=== PATIENT | male | born 1950 | race Caucasian/White ===

== ENCOUNTER 2016-06-12 14:41 | Emergency (ER) | payer MEDICARE, OTHER ==
--- NOTE | ~2016-06-12 | ER ---
PATIENT'S NAME: JOHNNY SHRESTHA [facility] AGE: 66 Y [address] ROOM: [place] [address] LOCATION: ED ADMIT DATE: 06/12/2016 ER/Outpatient Report DISCHARGE DATE: 06/12/2016 FAMILY PHYSICIAN: Jan Heath MD ATTENDING PHYSICIAN: Taz Brown CHIEF COMPLAINT: Bleeding AV fistula. HISTORY OF PRESENT ILLNESS: The patient states that he was changing a Band-Aid on a left forearm dialysis fistula secondary to prior bleeding and scabbing when the scab fell off, then he started having bleeding. He has been able to control it at home with direct pressure. He was given significant amounts of bleeding per EMS. They were contacted. They placed a tourniquet above the fistula and a large gauze dressing with pressure and brought him in for further evaluation. He has a history of AFib and is always on Coumadin; however, he is scheduled for a fistulogram on Monday after dialysis and is supposed to be evaluated then and thus he is on Lovenox currently. He denies any other issues, but he was little pale when he was initially evaluated per EMS. They state there was a lot of visible blood, but they could not quantify the amount. He denies any other issues. He was little low on oxygen so they placed him on some oxygen and brought him in. PAST MEDICAL HISTORY: Documented on the record and reviewed by me. SOCIAL HISTORY: Documented on the record and reviewed by me. MEDICATIONS: Documented on the record and reviewed by me. ALLERGIES: DOCUMENTED ON THE RECORD AND REVIEWED BY ME. REVIEW OF SYSTEMS: All systems were reviewed and negative except as noted in the HPI. PHYSICAL EXAMINATION: VITAL SIGNS: Blood pressure 118/68, pulse is 89, respiratory rate is 14, temperature is 97.8, and SpO2 is 91% on room air. GENERAL: Age-appropriate male with slight anxious appearance, otherwise, in no obvious pain or distress, resting on the exam table with significant blood around the hands. PATIENT'S NAME: JOHNNY SHRESTHA [facility] AGE: 66 Y [address] ROOM: [place] [address] LOCATION: ED ADMIT DATE: 06/12/2016 ER/Outpatient Report DISCHARGE DATE: 06/12/2016 FAMILY PHYSICIAN: Jan Heath MD ATTENDING PHYSICIAN: Taz Brown NEURO: The patient is awake and alert. GCS is 15. No focal deficits or asymmetry appreciated on exam. HEENT: Normocephalic and atraumatic. The eyes are PERRL. The oropharynx is clear. NECK: Supple. Trachea is midline. CHEST: Irregularly irregular with controlled ventricular rate in the 80s. No obvious murmurs. LUNGS: Clear to auscultation bilaterally with no rhonchi, wheezes, or rales. ABDOMEN: Soft, nontender, and nondistended. No rebound or guarding. BACK: Nontender to palpation throughout. No CVA tenderness. EXTREMITIES: Unremarkable except for the left forearm. There is a large bandage. When they removed, there was an arterial bleed from the center of the fistula. Direct pressure was applied to this area. We were unable to control bleeding with direct pressure after 15 minutes. It was ultimately controlled later. Thrill was palpated distal to the fistula and it was pulsatile proximal to the area of bleeding after intervention. The hand is otherwise neurovascularly intact. SKIN: Warm and dry as above and his color is stabilized and appropriate. LABORATORY DATA AND X-RAYS: No imaging was obtained. WBC is 8.6, hemoglobin is 10.0, platelets are 230. INR is 1.3. Sodium 138, potassium 4.3, chloride 99, CO2 is 31, BUN is 34, creatinine 5.1, GFR is 11. LFTs are grossly unremarkable. Blood type is O positive. No antibodies appreciated. IMPRESSION: Bleeding fistula, resolved. EMERGENCY DEPARTMENT COURSE: The patient was evaluated as above. The fistula continued to bleed after initial evaluation. Direct pressure was not sufficient to control bleeding after 15-20 minutes. Surgicel was placed over the wound and pressure was held for another 10 minutes with cessation of bleeding. A small gauze pad was placed over the Surgicel and a Tegaderm was placed over the top of that. The patient was evaluated for approximately an hour in the ER with no further evidence of bleeding. He stabilized and was not requiring oxygen in the ER. His blood counts were within appropriate range and he did receive approximately 750 mL of NS per EMS prior to arrival. He was otherwise hemodynamically stable. I have recommended very close followup on Monday as previously scheduled with Dr. Harrington. Return precautions discussed, the patient amenable to discharge at this time. Recommend direct pressure with no manipulation of the current bandage. He should continue to take his anticoagulation as he would be a high clot risk, where he had to stop that prior to his planned last dose tomorrow morning. Return immediately if any further bleeding regardless of ability to control. PATIENT'S NAME: JOHNNY SHRESTHA [facility] AGE: 66 Y [address] ROOM: [place] [address] LOCATION: [facility] ADMIT DATE: 06/12/2016 ER/Outpatient Report DISCHARGE DATE: 06/12/2016 FAMILY PHYSICIAN: Jan Heath MD ATTENDING PHYSICIAN: Taz Brown TAZ BROWN MD JH/modl /[id number] d: 06/12/16 2338 t: 06/13/16 1054, OUTPATIENT REPORT
[~2016-06-12 14:41] MED LIST: AMOXICILLIN500 MG PO; ANORO ELLIPTA1 EACH INH; ASCORBIC ACID500 MG PO; ATARAX25 MG PO; CEFTIN250 MG PO; CENTRUM SILVER1 EACH; COUMADIN 4MG **4 MG PO; DIFICID200 MG PO; DIFLUCAN200 MG PO; FEOSOL325 MG PO; FOLIC ACID1 MG PO; FOSRENOL1000 MG PO; LOVENOX80 MG/0.8 SUB-Q; MIRALAX17 GM PO; MULTAQ400 MG PO; NEPHRON FA (NEP1 TAB PO; NEURONTIN300 MG PO; NIFEREX-150) (150 MG PO; RENVELA800 MG PO; RYTHMOL SR325 MG PO; RYTHMOL225 M1 PO; SENSIPAR 30 MG30 MG PO; TAMIFLU30 MG PO; TRICOR145 MG PO; TYLENOL325 MG PO; VITAMIN B-121000 MCG PO; VITAMIN E400 UNI2 PO
[2016-06-12 15:34] LABS: BASOPHIL # 0.1 K/uL (0.0-0.2); BASOPHIL % 0.9 %; EOSINOPHIL # 0.5 K/uL (0.0-0.5); HEMATOCRIT 31.6 % (37.0-53.0); IMMATURE GRANULOCYTE % 0.5 %; MCH 34.7 pg (27.0-34.0); MCHC 31.6 gm/dL (32.0-36.5); MCV 109.7 fl (83.0-98.0); MONOCYTE # 0.8 K/uL (0.0-1.0); MPV 9.8 fl (9.4-12.4); NEUTROPHIL # (ANC) 6.2 K/uL (1.4-9.0); NEUTROPHIL % 71.6 %; NRBC % 0 /100WBC (0-0.00); PLATELET COUNT 230 K/uL (150-450); RBC 2.88 M/uL (3.50-5.50); RDW-CV 15.5 % (11.9-14.6); WBC 8.6 K/uL (4.0-11.0)
[2016-06-12 15:43] LABS: PROTIME 13.9 SECONDS (9.6-11.1); PTT 35 SECONDS (25-32)
[2016-06-12 15:49] LABS: ALBUMIN 2.6 gm/dL (3.5-5.0); CALCIUM 8.9 mg/dL (8.5-10.5); TOTAL BILIRUBIN 0.9 mg/dL (0.0-1.5); TOTAL PROTEIN 7.3 g/dL (6.0-8.4)
[2016-06-12 15:50] LABS: ANION GAP 12.3 (10.0-19.0); CREATININE 5.1 mg/dL (0.6-1.3); INR - (THERAPEUTIC) 1.3 (0.9-1.1); POTASSIUM 4.3 mMol/L (3.7-5.1)
== END 2016-06-12 17:08 | disposition disaster alternative care site (69) ==
LOC: GMED 14:41
PROVIDERS: Emergency Medicine
DX: T82.838A Hemorrhage due to vascular prosthetic devices, implants and grafts, initial encounter (principal); Z79.01 Long term (current) use of anticoagulants

== ENCOUNTER 2016-06-14 09:53 | Observation (INO) | payer MEDICARE, OTHER ==
[~2016-06-14] VITALS: Ht 180.3 cm; Wt 128.3 kg
--- NOTE | ~2016-06-14 | OR ---
PATIENT'S NAME: JOHNNY SHRETSHA [facility] AGE: 66 Y [address] ROOM: [address] [address] LOCATION: [facility] [place] ADMIT DATE: 06/14/2016 OR/Procedure Report DISCHARGE DATE: FAMILY PHYSICIAN: LIAM DALE MD ATTENDING PHYSICIAN: PHILLIP AVILES SURGEON: Phillip Aviles MD MECHANICAL MAINTENANCE WORKER: DATE OF PROCEDURE: 06/15/2016 PREOPERATIVE DIAGNOSIS: Prolonged bleeding after fistula cannulation. POSTOPERATIVE DIAGNOSIS: No abnormality seen. PRIMARY CLASS TEACHER: Jarrett. ANESTHESIA: MAC, local. ESTIMATED BLOOD LOSS: 10 mL. OPERATIVE FINDINGS: No outflow vein tract stenosis. No central vein stenosis. No indication for prolonged bleeding. DESCRIPTION OF PROCEDURE: The patient was brought to the terrazzo laborer, placed supine on the terrazzo laborer table, and prepped and draped in the sterile manner. Preoperative time-out was performed. We gained access using ultrasound guidance using a micropuncture needle followed by a micropuncture sheath. We then performed a series of fistulograms using the micropuncture sheath with digital subtraction. We saw no outflow vein tract stenosis. The fistula is being drained by both the basilic and cephalic systems, and it has no blockage in the central venous area. I removed the sheath and held pressure for 10 minutes. The patient tolerated the procedure well, transferred to the recovery room and then back to the floor. Primary Care may have to consider discontinuing at least aspirin or even possibly his Coumadin to help prevent this longstanding bleeding he gets after his dialysis. PHILLIP AVILES MD FKM/modl /[id number] d: 06/15/16 1402 t: 06/17/16 1011, OPERATIVE SUMMARY
--- NOTE | ~2016-06-14 | DS ---
PATIENT'S NAME: JOHNNY SHRESTHA [facility] AGE: 66 Y [address] ROOM: [place] [address] [place] [facility] [place]: 06/14/2016 Discharge Summary DISCHARGE DATE: 06/15/2016 FAMILY PHYSICIAN: Jan Heath MD ATTENDING PHYSICIAN: Phillip Harrington FINAL DIAGNOSES: 1. Bleeding from dialysis fistula in left forearm. 2. Chronic renal dialysis. 3. Fistulogram on 06/16/2015, see Dr. Harrington's notes. 4. Repair of suture of bleeding site left arm fistula in Emergency Room, see Dr. Harrington's note. 5. Secondary hyperparathyroidism. 6. IgA nephropathy. 7. Hyperphosphatemia. 8. Demyelinating polyneuropathy. 9. Chronic atrial fibrillation. 10. Chronic anticoagulation. 11. Hyperlipidemia. 12. Obesity. HOSPITAL COURSE: The patient was admitted after he continued to bleed after his dialysis on the day of admission. He was seen in the Emergency Room by Dr. Isaacs and Dr. Harrington. Dr. Harrington placed a suture to stop the bleeding in his left forearm dialysis site/fistula. The patient underwent a fistulogram on the day of dismissal, and was dismissed to home per Dr. Harrington. DISCHARGE DIET: He was dismissed on diet. Prior recommendations were given. DISCHARGE MEDICATIONS: He was discharged on the medications list shown. DISCHARGE FOLLOWUP: He will follow up with Dr. Perkins, his law firm consultant for dialysis, and Dr. Harrington to re-check this suture placed in the left forearm. DISCHARGE INSTRUCTIONS: The patient should be seen earlier if he has fever, chills, or an extreme amount of bleeding from the left forearm and he understands. JAN HEATH MD DIRECTOR BUSINESS DEVELOPMENT/modl PATIENT'S NAME: JOHNNY SHRESTHA [facility] AGE: 66 Y [address] ROOM: [place] [address] [place] [facility] [place] DATE: 06/14/2016 Discharge Summary DISCHARGE DATE: 06/15/2016 FAMILY PHYSICIAN: Jan Heath MD ATTENDING PHYSICIAN: Phillip Harrignton /[id number] d: 06/16/16 0550 t: 06/27/16 1834, DISCHARGE SUMMARY
--- NOTE | ~2016-06-14 | HP ---
PATIENT'S NAME: JOHNNY SHRESTHA [facility] AGE: 66 Y [address] ROOM: [address] [place], [place] [address] LOCATION: [facility] [place] ADMIT DATE: 06/14/2016 History & Physical DISCHARGE DATE: FAMILY PHYSICIAN: LIAM HEATH MD ATTENDING PHYSICIAN: HODA HARRINGTON DATE OF SERVICE:06/14/16 CHIEF COMPLAINT: Left arm fistula began bleeding at dialysis. HISTORY OF PRESENTING ILLNESS: This is a 66-year-old male, who was admitted to [facility] after presenting to the emergency room with a bleeding left arm radiocephalic fistula. The patient has a history of bleeding fistula after dialysis. The patient was originally admitted to [facility] on May 30, 2016, for issues of fistula bleeding. At that time, he was examined by Vascular Surgery, and it was determined that he would need a fistulogram to assess for outflow blockage. The patient again presented on June 12, 2016, to the ER with bleeding from his fistula site, bleeding did stop on its own. Today, the patient was at dialysis and the dialysis nurses were unable to control bleeding. The patient was transferred to the emergency room by ambulance. While in the emergency room, Dr. Harrington met with the patient and sutured his fistula closed. The patient was scheduled to have a fistulogram today prior to presenting to the ER. He was admitted to [facility] Medical[facility] and we will plan for fistulogram tomorrow. The patient has a history of atrial fibrillation and is chronically on Coumadin. He was recently transitioned to Lovenox to prepare for procedure. On previous exam while inpatient, the patient's fistula was found with pulsatility and varicosities, suggesting stenosis or outflow blockage. Currently, the patient denies any shortness of breath, chest pain, nausea, vomiting, or diarrhea. He denies any abdominal pain. He denies any dizziness or lightheadedness. He denies claudication. He denies any history of DVT. He denies diabetes. The patient does have a 40 to 45-year pack per day smoking history. No current tobacco use. PAST MEDICAL HISTORY: 1. IgA nephropathy. 2. Atrial fibrillation, on long-term anticoagulation. 3. End-stage renal disease, on hemodialysis. PAST SURGICAL HISTORY: 1. Left arm radiocephalic arteriovenous fistula, created in 2008. 2. Appendectomy. 3. Peritoneal catheter placement. PATIENT'S NAME: JOHNNY SHRESTHA [facility] AGE: 66 Y [address] ROOM: [address] [place], [place] [address] LOCATION: [facility] [place] ADMIT DATE: 06/14/2016 History & Physical DISCHARGE DATE: FAMILY PHYSICIAN: LIAM HEATH MD ATTENDING PHYSICIAN: HODA HARRINGTON 4. Left carpal tunnel release. FAMILY HISTORY: Mother with history of breast cancer. Father with history of prostate cancer. Paternal grandmother with hypertension and myocardial infarction. SOCIAL HISTORY: The patient quit smoking 9 years ago, but has a 40 to 45-year tobacco history. He denies any alcohol or illicit drug use. CURRENT MEDICATIONS: See medication reconciliation. ALLERGIES: SNAKE VENOM. REVIEW OF SYSTEMS: A 10-point review of systems completed with positives addressed in the history of presenting illness. PHYSICAL EXAMINATION: VITAL SIGNS: Temperature 96.1, heart rate 81, respiratory rate 18, oxygen saturations 96%, and blood pressure 111/73. GENERAL: The patient is in no acute distress. He is alert and oriented x3. SKIN: Warm, pink, and dry. No rashes. Suture to fistula. HEENT: Head: Normocephalic and atraumatic. Eyes: Sclerae white and conjunctivae pink. Extraocular movements intact. PERRLA. Ears: Without drainage. Nose: Without drainage. Nasal mucosa pink. Throat: Oral mucosa pink and moist. NECK: Without adenopathy. No evidence of JVD. No carotid bruit. RESPIRATORY: Clear to auscultation bilaterally. Even and nonlabored. CARDIOVASCULAR: Irregular. No murmur or extra sounds. GASTROINTESTINAL: Bowel sounds active x4. Soft. Nontender. EXTREMITIES: The left upper extremity radiocephalic fistula with bruit and thrill, but it does become pulsatile proximally and outflow varicosities are present. No cyanosis. No edema. Dorsalis pedis and posterior tibialis 2+. Radial pulse 2+. The patient has active range of motion throughout. NEUROLOGIC: No focal deficits. Strength equal bilaterally. Sensation intact. LABORATORY DATA: Hematology: White blood cell count 7.4, hemoglobin 10.7, hematocrit 33.1, and platelets 214. Chemistry: Sodium 138, potassium 3.4, chloride 97, CO2 of 31, BUN 14, creatinine 3.2, glucose 72, PTT 33, PT 13.9, and INR 1.3. PATIENT'S NAME: JOHNNY SHRESTHA [facility] AGE: 66 Y [address] ROOM: [address] [address] LOCATION: [facility] [place] ADMIT DATE: 06/14/2016 History & Physical DISCHARGE DATE: FAMILY PHYSICIAN: LIAM HEATH MD ATTENDING PHYSICIAN: HODA HARRINGTON IMPRESSION: End-stage renal disease, on hemodialysis; malfunctioning fistula with post dialysis bleeding; and atrial fibrillation with chronic anticoagulation. PLAN: Malfunctioning fistula with post dialysis bleeding, likely related to an outflow blockage as well as being on chronic anticoagulation. The patient will need a fistulogram with Dr. Harrington tomorrow, June 15, 2016. The patient is to be n.p.o. at midnight to plan for this procedure. He is to stop any home dose of Lovenox or Coumadin. The fistula is currently stable without further bleeding or hematoma. The patient was admitted to [facility] Medical [facility] Unit on a regular diet. Activity as tolerated. We will draw CBC and CMS in the morning prior to procedure. At this time, we will make the patient observation status. Vitals may be obtained per floor routine. The patient is to be monitored closely for bleeding or hematoma of fistula. We will consult Dr. Heath for medication management. EMILY ORELLANA APRN FOR HODA HARRINGTON MD TO/modl /[id number] D: T: HISTORY & PHYSICAL
--- NOTE | ~2016-06-14 | HP ---
PATIENT'S NAME: JOHNNY SHRESTHA [facility] AGE: 66 Y [address] ROOM: [place] [address] [place] [facility] [place] DATE: 06/14/2016 History & Physical DISCHARGE DATE: 06/15/2016 FAMILY PHYSICIAN: Liam Heath MD ATTENDING PHYSICIAN: Phillip Harrington DATE OF SERVICE: CHIEF COMPLAINT: Bleeding from left forearm fistula. HISTORY OF PRESENT ILLNESS: I was called by Oneal Isaacs, ER physician, to admit this patient. This 66-year- old male had presented to the emergency room with a chief complaint of bleeding from his fistula where he receives dialysis. The bleeding started just after his hemodialysis today here in [place]. He was seen in the emergency room by Dr. Isaacs, and Dr. Harrington was consulted, vascular surgeon. Dr. Harrington came to the emergency room and placed a suture. It stopped the bleeding coming from his left forearm fistula, and the patient is admitted to have a fistulogram tomorrow. When I see the patient, he has no complaints. He is lying quietly in bed. His is present for the interview. The patient follows with Dr. Perkins, his adjunct trainer. The patient historically has had chronic renal failure secondary to IgA disease and has anemia of chronic disease, secondary hyperparathyroidism, hyperphosphatemia, demyelinating polyneuropathy by history. MEDICATIONS: The patient is on: 1. Vitamin C 500 mg a day. 2. Aspirin 325. 3. Coumadin as prescribed. 4. Cinacalcet 30 mg every day. 5. Fenofibrate 145 a day. 6. Ferrous sulfate 325 twice a day. 7. Fluconazole 200 mg a day. 8. Folic acid 1 mg a day. 9. Gabapentin 300 mg twice a day. 10. Lanthanum carbonate 1000 mg 3 times a day. 11. MiraLAX as needed. 12. Propafenone 225 mg 3 times a day. 13. Sevelamer 800 mg 4 tablets 3 times a day with meals. ALLERGIES TO MEDICATIONS: No known drug allergies. PATIENT'S NAME: JOHNNY SHRESTHA [facility] AGE: 66 Y [address] ROOM: [place] [address] [place] [facility] [place] DATE: 06/14/2016 History & Physical DISCHARGE DATE: 06/15/2016 FAMILY PHYSICIAN: Liam Heath MD ATTENDING PHYSICIAN: Phillip Harrington PREVIOUS OPERATIONS: Fistula, left forearm. Otherwise, see nurse's notes. SOCIAL HISTORY: Does not smoke. FAMILY HISTORY: Noncontributory. PHYSICAL EXAMINATION: GENERAL: An elderly male, who is chronically ill. He is pleasant and oriented x3. HEENT: Shows he wears glasses. He is not jaundiced. Posterior pharynx shows dry mucous membranes. NECK: Unremarkable. LUNGS: Clear. HEART: Shows no murmur, gallop, or rub. ABDOMEN: Benign, obese. EXTREMITIES: Show suture present and fistula in the left forearm. NEUROLOGIC: Otherwise grossly intact. I did not do a sensory exam of his feet. MENTAL STATUS: No obvious depression. ASSESSMENT: 1. Chronic renal dialysis. The patient with persistent bleeding from the fistula, evaluated in the emergency room today and treated with a suture placed by Dr. Harrington. 2. Planned fistulogram in the morning per Dr. Harrington. 3. IgA nephropathy. 4. Chronic dialysis. 5. Atrial fibrillation. 6. Secondary hyperparathyroidism. 7. Anemia of chronic disease. 8. Hyperphosphatemia. 9. Demyelinating polyneuropathy. PLAN: Per Dr. Harrington and further changes indicated. LIAM HEATH MD BOWSTRING MAKER/modl PATIENT'S NAME: JOHNNY SHRESTHA [facility] AGE: 66 Y [address] ROOM: [place] [address] [place] [facility] [place] DATE: 06/14/2016 History & Physical DISCHARGE DATE: 06/15/2016 FAMILY PHYSICIAN: Liam Heath MD ATTENDING PHYSICIAN: Phillip Harrington /[id number] D: [id number] T: [id number] HISTORY & PHYSICAL
--- NOTE | ~2016-06-14 | ER ---
PATIENT'S NAME: JOHNNY SHRESTHA [facility] AGE: 66 Y [address] ROOM: [place] [address] LOCATION: [facility] [place] ADMIT DATE: 06/14/2016 ER/Outpatient Report DISCHARGE DATE: FAMILY PHYSICIAN: LIAM HEATH MD ATTENDING PHYSICIAN: HODA HARRINGTON Time of Arrival: 0953 hours. Time of Evaluation: 0954 hours. CHIEF COMPLAINT: Bleeding from fistula. HISTORY OF PRESENT ILLNESS: The patient is a 66-year-old male, who presents to the emergency department today with a chief complaint of bleeding from the fistula. He reports that it started just after dialysis today. He does have a history of being seen here in the emergency department a few days ago for the same thing for bleeding fistula. Apparently, it is an area where scab had been and fallen off. He does report he feels slightly lightheaded but otherwise has no complaints. No chest pain. No shortness of breath. No fevers or chills. No nausea or vomiting. No diarrhea or constipation. PAST MEDICAL HISTORY: IgA nephropathy; atrial fibrillation, on long-term anticoagulation; end-stage renal disease, on hemodialysis; dyslipidemia, elevated pulmonary pressures. PAST SURGICAL HISTORY: Fistula, knee, shoulder, appendectomy, carpal tunnel. SOCIAL HISTORY: The patient denies any tobacco, alcohol, or illicit drug use. ALLERGIES: TO BEE STINGS. MEDICATIONS: Please see list. GRAZING AIDE: Dr. Perkins. KITCHEN CLEANER: Dr. Castro. VASCULAR SURGEON: PATIENT'S NAME: JOHNNY SHRESTHA [facility] AGE: 66 Y [address] ROOM: [place] [address] LOCATION: [facility] [place] ADMIT DATE: 06/14/2016 ER/Outpatient Report DISCHARGE DATE: FAMILY PHYSICIAN: LIAM HEATH MD ATTENDING PHYSICIAN: HODA HARRINGTON Dr.. REVIEW OF SYSTEMS: All systems are reviewed by myself and are negative with the exception of those discussed in the HPI and past medical history. PHYSICAL EXAMINATION: VITAL SIGNS: Weight 128.3 kg, blood pressure 111/73, pulse 81, respiratory rate 18, temperature 96.1, oxygen saturation 93% on room air. GENERAL: The patient is a 66-year-old male, appears of stated age, in no acute distress at this time. HEENT: Normocephalic, atraumatic. Pupils are equal, round, and reactive to light. Extraocular motions are intact. Nares are patent bilaterally. Oropharynx is clear. NECK: Supple. There is no nuchal rigidity. CARDIOVASCULAR: Regular rate and rhythm. LUNGS: Clear to auscultation bilaterally. ABDOMEN: Soft, nontender, and nondistended. No rebound, rigidity, or guarding. MUSCULOSKELETAL: The patient moves all 4 extremities. SKIN: The patient has AV pressure dressing noted to the left arm above the fistula, 2/4 radial pulse in the left lower extremity. LABORATORY DATA AND X-RAYS: CBC is unremarkable except for hemoglobin 10.7, hematocrit 33.1. Coags are remarkable for PTT 33, PT is 13.9, INR is 1.3. CMP is unremarkable except for potassium 3.4, creatinine 3.2, otherwise unremarkable. IMPRESSION: 1. Bleeding left AV fistula. 2. End-stage renal disease. 3. Atrial fibrillation, on chronic anticoagulation. 4. Pulmonary hypertension. 5. Hypertension. 6. Dyslipidemia. 7. Initial visit. EMERGENCY DEPARTMENT COURSE: The patient was brought back to the examination room. Seen and evaluated immediately upon arrival by myself. Laboratory analysis obtained as described above. We have contacted Dr. Harrington with Vascular Surgery. He has seen and evaluated the patient here in the emergency department. He has placed the suture to stop the bleeding. I have discussed the case with Dr. Harrington. Dr. Harrington will admit the patient for observation with planned fistulogram tomorrow. I have discussed the plan with the patient. He is without further PATIENT'S NAME: JOHNNY SHRESTHA [facility] AGE: 66 Y [address] ROOM: [address] [address] LOCATION: [facility] [place] ADMIT DATE: 06/14/2016 ER/Outpatient Report DISCHARGE DATE: FAMILY PHYSICIAN: LIAM HEATH MD ATTENDING PHYSICIAN: HODA HARRINGTON questions at this time. I have contacted Dr. Heath, the patient's primary care doctor. He will see and evaluate the patient as well in the hospital. DISPOSITION: The patient is admitted under the care of Dr. Harrington in consultation with Dr. Heath in stable condition. DO Dana LUNA /[id number] d: 06/14/162008 t: 06/21/16 0551, OUTPATIENT REPORT
[~2016-06-14 09:53] MED LIST changes: -ASPIRIN LO-DOSE81 MG PO; -EPIPEN 2-P0.3 MG/0.3 SUB-Q; -NIACIN500 M1 PO; -PANTOPRAZOLE SO40 MG PO
[2016-06-14 10:59] LABS: BASOPHIL # 0.1 K/uL (0.0-0.2); BASOPHIL % 1.1 %; EOSINOPHIL # 0.5 K/uL (0.0-0.5); EOSINOPHIL % 6.3 %; HEMATOCRIT 33.1 % (37.0-53.0); HEMOGLOBIN 10.7 g/dL (11.0-16.0); IMMATURE GRANULOCYTE % 0.4 %; LYMPHOCYTE % 13.3 %; MCH 34.9 pg (27.0-34.0); MCHC 32.3 gm/dL (32.0-36.5); MCV 107.8 fl (83.0-98.0); MONOCYTE # 0.6 K/uL (0.0-1.0); MONOCYTE % 7.5 %; MPV 9.5 fl (9.4-12.4); NEUTROPHIL # (ANC) 5.3 K/uL (1.4-9.0); NEUTROPHIL % 71.4 %; NRBC % 0 /100WBC (0-0.00); PLATELET COUNT 214 K/uL (150-450); RBC 3.07 M/uL (3.50-5.50); RDW-CV 15.5 % (11.9-14.6); WBC 7.4 K/uL (4.0-11.0)
[2016-06-14 11:06] LABS: INR - (THERAPEUTIC) 1.3 (0.9-1.1); PROTIME 13.9 SECONDS (9.6-11.1)
[2016-06-14 11:13] LABS: ALBUMIN 2.7 gm/dL (3.5-5.0); ANION GAP 13.4 (10.0-19.0); CALCIUM 8.6 mg/dL (8.5-10.5); CREATININE 3.2 mg/dL (0.6-1.3); POTASSIUM 3.4 mMol/L (3.7-5.1); TOTAL PROTEIN 7.5 g/dL (6.0-8.4)
[2016-06-14 11:18] LABS: TOTAL BILIRUBIN 1.1 mg/dL (0.0-1.5)
[2016-06-14] MEDS ORDERED: MULTAQ400 MG PO (12:15)
[2016-06-14] MEDS ORDERED: PANTOPRAZOLE SO40 MG PO (12:15)
[2016-06-14] MEDS ORDERED: NIACIN500 M1 PO (12:16)
[2016-06-15 05:24] LABS: BASOPHIL # 0.1 K/uL (0.0-0.2); BASOPHIL % 0.7 %; EOSINOPHIL # 0.6 K/uL (0.0-0.5); EOSINOPHIL % 6.8 %; HEMATOCRIT 29.8 % (37.0-53.0); HEMOGLOBIN 9.6 g/dL (11.0-16.0); IMMATURE GRANULOCYTE % 0.3 %; LYMPHOCYTE # 0.9 K/uL (0.8-4.0); LYMPHOCYTE % 9.2 %; MCHC 32.2 gm/dL (32.0-36.5); MCV 108.8 fl (83.0-98.0); MONOCYTE # 0.7 K/uL (0.0-1.0); MONOCYTE % 7.8 %; MPV 9.6 fl (9.4-12.4); NEUTROPHIL # (ANC) 6.9 K/uL (1.4-9.0); NEUTROPHIL % 75.2 %; NRBC % 0 /100WBC (0-0.00); PLATELET COUNT 223 K/uL (150-450); RBC 2.74 M/uL (3.50-5.50); RDW-CV 15.4 % (11.9-14.6); WBC 9.2 K/uL (4.0-11.0)
[2016-06-15 05:38] LABS: ALBUMIN 2.5 gm/dL (3.5-5.0); CALCIUM 9.1 mg/dL (8.5-10.5); TOTAL BILIRUBIN 1.1 mg/dL (0.0-1.5); TOTAL PROTEIN 7.1 g/dL (6.0-8.4)
[2016-06-15 05:40] LABS: ANION GAP 13.4 (10.0-19.0); CREATININE 4.8 mg/dL (0.6-1.3); POTASSIUM 4.4 mMol/L (3.7-5.1)
== END 2016-06-15 11:31 | disposition disaster alternative care site (69) ==
LOC: GMED 09:53 → GMSU 10:44
PROVIDERS: Emergency Medicine; Nurse Practitioner Family; ADMIT Surgery Vascular Surgery
PROC: B51W1ZZ Fluoroscopy of Dialysis Shunt/Fistula using Low Osmolar Contrast (ICD-10-PCS; principal; 2016-06-15)
DX: T82.838A Hemorrhage due to vascular prosthetic devices, implants and grafts, initial encounter (principal); E78.5 Hyperlipidemia, unspecified; I48.2 Chronic atrial fibrillation; N02.8 Recurrent and persistent hematuria with other morphologic changes; E83.39 Other disorders of phosphorus metabolism; G61.81 Chronic inflammatory demyelinating polyneuritis; Y83.8 Other surgical procedures as the cause of abnormal reaction of the patient, or of later complication, without mention of misadventure at the time of the procedure; Z79.01 Long term (current) use of anticoagulants; Z90.49 Acquired absence of other specified parts of digestive tract; Z87.891 Personal history of nicotine dependence; Z79.899 Other long term (current) drug therapy; Z98.890 Other specified postprocedural states
CPT/HCPCS: C1751; G0378; J1644; J3010

== ENCOUNTER → 2016-06-14 | Outpatient (CLI) | payer MEDICARE, OTHER ==
[~2016-06-14] MED LIST changes: +ASPIRIN LO-DOSE81 MG PO; +EPIPEN 2-P0.3 MG/0.3 SUB-Q; +NIACIN500 M1 PO; +PANTOPRAZOLE SO40 MG PO
== END | disposition disaster alternative care site (69) ==
LOC: GAMB 09:36
DX: T82.838D Hemorrhage due to vascular prosthetic devices, implants and grafts, subsequent encounter (principal)
CPT/HCPCS: A0425; A0427

== ENCOUNTER 2016-06-21 09:23 | Inpatient (IN) | payer MEDICARE, OTHER ==
[~2016-06-21] VITALS: Ht 177.8 cm; Wt 130.0 kg
--- NOTE | ~2016-06-21 | CON ---
PATIENT'S NAME: JOHNNY SHRESTHA [facility] AGE: 66 Y [address] ROOM: [place] [address] LOCATION: [facility] ADMIT DATE: 06/21/2016 Consultation DISCHARGE DATE: 06/21/2016 FAMILY PHYSICIAN: LIAM DALE MD ATTENDING PHYSICIAN: RON DOWNING V DATE OF CONSULTATION: 06/21/2016 This is a [facility]phrology consultation. REASON FOR CONSULTATION: End-stage renal disease, on hemodialysis therapy, failed dialysis access. HISTORY OF PRESENT ILLNESS: This is a 66-year-old male patient, who is well known to Dr. Mak, who presented to outpatient hemodialysis this morning around 0500 hours and was noted to have a nonfunctioning AV fistula. The patient was subsequently setup for an outpatient tunneled dialysis catheter this morning; however, this was unable to be performed due to the patient being on long-term anticoagulation including Coumadin and Lovenox. Pre-admit labs were performed, and the patient was admitted for further evaluation and the need for hemodialysis today. The patient was scheduled for an inpatient line access with Dr. Robles in Interventional Radiology. The patient does have a past medical history of end-stage renal disease from biopsy-proven IgA nephropathy. He was initially on peritoneal dialysis. He currently has been receiving hemodialysis through his left forearm primary radiocephalic AV fistula. He has had numerous complications over the last few months including bleeding and further follow up with Dr. Harrington. Therefore, due to the patient's need for hemodialysis with last known hemodialysis on Monday06/18/2016, as well as missed dialysis today due to AV fistula complications, the patient has been admitted, and Dr. Mak has been asked to follow the patient for his inpatient hemodialysis care. PAST MEDICAL HISTORY: As listed above includin. End-stage renal disease. 2. Hemodialysis. 3. IgA nephropathy. 4. Obesity. 5. Secondary hyperparathyroidism. 6. Anemia of chronic kidney disease. 7. Hyperphosphatemia. 8. Demyelinating polyneuropathy. PATIENT'S NAME: JOHNNY SHRESTHA [facility] AGE: 66 Y [address] ROOM: [address] [address] LOCATION: [facility] ADMIT DATE: 06/21/2016 Consultation DISCHARGE DATE: 06/21/2016 FAMILY PHYSICIAN: LIAM DALE MD ATTENDING PHYSICIAN: RON DOWNING V PAST SURGICAL HISTORY: 1. Left forearm primary radiocephalic AV fistula placement in 2008. 2. Dialysis catheter placement. 3. Shoulder surgery in 2008. 4. Left carpal tunnel release in 2001. 5. Appendectomy in 1963. 6. Multiple fistulograms of the left primary radiocephalic AV fistula by Dr. Harrington. FAMILY HISTORY: Reviewed and is noncontributory. There is no history of renal disease or dialysis. SOCIAL HISTORY: The patient lives in [place], [place]. He has a remote history of 40-pack- year smoking, quit about 14 years ago. 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 He is and does drink occasional alcohol. ALLERGIES: SULFA AND INTOLERANCE TO IVON INHIBITORS, INCLUDING LISINOPRIL, WHICH CAUSES A DRY COUGH. CURRENT MEDICATIONS: 1. Ascorbic acid 500 mg daily. 2. Aspirin 325 mg daily, currently on hold. 3. Coumadin as prescribed. 4. Cinacalcet 30 mg every other day. 5. Fenofibrate 145 mg daily. 6. Ferrous sulfate 325 mg twice a day. 7. Fluconazole 200 mg every day. 8. Folic acid 1 mg daily. 9. Gabapentin 300 mg twice a day. 10. Lanthanum carbonate 1000 mg 3 times a day. 11. MiraLAX p.r.n. 12. Rythmol 225 mg p.o. 3 times a day. 13. Sevelamer 800 mg 4 tablets 3 times a day with meals. REVIEW OF SYSTEMS: GENERAL: Positive for fatigue. EYES: No double vision or blurred vision. NOSE: No epistaxis or rhinorrhea. MOUTH: No gingival bleeding. THROAT: No sore throat, hoarseness, or cough. RESPIRATORY: Denies wheezing or hemoptysis. CARDIOVASCULAR: Denies any chest pain or palpitations. Does complain of some PATIENT'S NAME: JOHNNY SHRESTHA [facility] AGE: 66 Y [address] ROOM: [id number] [place], [place] [address] LOCATION: [facility] ADMIT DATE: 06/21/2016 Consultation DISCHARGE DATE: 06/21/2016 FAMILY PHYSICIAN: LIAM DALE MD ATTENDING PHYSICIAN: RON DOWNING V orthopnea. GASTROINTESTINAL: Denies nausea, vomiting, or diarrhea. MUSCULOSKELETAL: Denies any new arthralgias or myalgias. NEUROLOGICAL: Denies numbness or tingling in the upper or lower extremities. HEMATOLOGICAL: Positive for bleeding from the AV fistula. He is on Coumadin currently with Lovenox bridge, that was stopped on Monday06/19/2016. IMMUNOLOGIC: No recent infections. PSYCHIATRIC: No depression or anxiety. LABORATORY DATA: WBCs 8.6, hemoglobin 9.8, hematocrit 30.4, platelets 201. Glucose 80, BUN is 39, creatinine 7.7, sodium 141, potassium 5.2, chloride 102, CO2 is 26, calcium 9.2, magnesium is 2.5, INR is 2.1. PHYSICAL EXAMINATION: VITAL SIGNS: Blood pressure 102/61, pulse is 75, respirations 13, temp is 97.9, and weight is 130 kg. GENERAL: On exam, this is a quite drowsy, alert and oriented patient, who is status post tunneled line procedure. HEENT: His head is normocephalic and atraumatic. Eyes: Pupils are equal, round, and reactive to light and accommodation. EOMs are intact. Nose is midline. Mouth: No gingival bleeding. Throat is without lymphadenopathy or carotid bruits, or JVD. LUNGS: Lung sounds are clear to auscultation anteriorly and posteriorly. CARDIOVASCULAR: Regular rate and rhythm. No appreciable murmurs, rubs, or thrills. ABDOMEN: Obese, bowel sounds positive. EXTREMITIES: Show no signs of peripheral edema, clubbing, or cyanosis. CHEST: There is a new right IJ tunneled line with the dressing clean, dry, and intact. ASSESSMENT AND PLAN: 1. End-stage renal disease, requiring hemodialysis therapy. The patient is due for his hemodialysis today. We will obtain the patient's outpatient clinical record and provide hemodialysis accordingly. We will ultrafiltrate as tolerated due to the patient's labile blood pressures. 2. Failed dialysis access. We will plan the patient to get a temporary line placed today, so that we can run hemodialysis accordingly. The patient will have a planned tunneled line placed by Interventional Radiology when the patient's INR is less than 1.8. Dr. Harrington is also notified and will plan to place a new AV fistula in the near future. 3. Hyperkalemia. The patient is due for dialysis today. We will monitor this carefully. The patient is having no acute telemetry changes. 4. Long-term anticoagulation in the form of Coumadin. The patient took his Coumadin this morning. We will hold his Coumadin until his tunnel catheter can be placed. We will monitor his INR as it trends down. PATIENT'S NAME: JOHNNY SHRESTHA [facility] AGE: 66 Y [address] ROOM: [place] [address] LOCATION: [facility] ADMIT DATE: 06/21/2016 Consultation DISCHARGE DATE: 06/21/2016 FAMILY PHYSICIAN: LIAM DALE MD ATTENDING PHYSICIAN: RON DOWNING has been notified of the patient's admission. This patient has been seen and assessed by Dr. Mak. His care is being conducted in consultation with Dr. Mak as well as me. We will plan further recommendations as they are forthcoming. In the interim, the patient is to continue on his regularly scheduled hemodialysis as an inpatient. ADE NAVARRO DNP, CLOTH MERC[employer]ING SUPERVISOR FOR M KRYSTEN MAK MD ENS/modl /[id number] d: 06/21/162053 t: 06/28/1602, CONSULTATION REPORT
--- NOTE | ~2016-06-21 | HP ---
PATIENT'S NAME: JOHNNY SHRESTHA [facility] AGE: 66 Y [address] ROOM: [place] [address] [place] [facility] [place] DATE: 06/21/2016 History & Physical DISCHARGE DATE: FAMILY PHYSICIAN: LIAM DALE MD ATTENDING PHYSICIAN: RON DOWNING V DATE OF SERVICE: CHIEF COMPLAINT: Nonfunctioning fistula. HISTORY OF PRESENT ILLNESS: The patient is a 66-year-old male with past medical history of end-stage renal disease, on hemodialysis, Monday, , Monday. He showed up with dialysis session and fistula could not be accessed due to very high arterial pressures. Of note, the patient has been having recent issues with his fistula with bleeding and has had a fistulogram quite recently which was unremarkable. He was told by his nephrology doctor to come into the hospital. He does report increased fatigue, which he attributes to being due for dialysis. REVIEW OF SYSTEMS: All systems have been reviewed and negative aside from pertinent positives as mentioned above. PAST MEDICAL HISTORY: Significant for IgA nephropathy leading to end-stage renal disease, atrial fibrillation, on long-term anticoagulation. SURGICAL HISTORY: Significant for prior placement of a peritoneal dialysis catheter and placement of a hemodialysis fistula. CURRENT MEDICATIONS: Coumadin. SOCIAL HISTORY: Significant for 40-to 45-pack years of tobacco use. The patient had quit 9 years ago. FAMILY HISTORY: Reviewed in detail and is noncontributory due to known underlying etiology for PATIENT'S NAME: JOHNNY SHRESTHA [facility] AGE: 66 Y [address] ROOM: [place] [address] [place] [facility] [place] DATE: 06/21/2016 History & Physical DISCHARGE DATE: FAMILY PHYSICIAN: LIAM DALE MD ATTENDING PHYSICIAN: RON DOWNING V his presentation. PHYSICAL EXAMINATION: VITAL SIGNS: At this point, his vital signs are temperature 97.9, pulse 75, respirations 13, blood pressure is 102/61, saturating 91% on room air. GENERAL: Appears as a chronically ill, middle-aged male, in no acute distress. LUNGS: Clear to auscultation. HEART: Reveals regular. ABDOMEN: Soft, nontender, nondistended. : Reveals no costovertebral angle tenderness. VASCULAR: Reveals 1+ bilateral lower extremity edema. LABORATORY DATA: Studies performed here upon arrival significant for potassium of 5.2 and BUN of 39 and creatinine of 7.7, his hemoglobin is 9.8, and his INR is 2.1. ASSESSMENT AND PLAN: This is a 66-year-old male who will be admitted for observation with, 1. Nonfunctioning dialysis fistula. Arrangements have been made for the patient to receive a temporary dialysis catheter by Interventional Radiology today. 2. End-stage renal disease. The patient will be dialyzed subsequent to placement of the dialysis catheter. 3. Atrial fibrillation, on chronic anticoagulation. We will await for evaluation by his vascular surgeon for placement of a possible long-term dialysis catheter and resume anticoagulation when appropriate. 4. Additional management depend on clinical course. Time dedicated to the patient's encounter today is 15 minutes. MD SHAHLA TOMPKINS/bree /[id number] D: 627 T: 222 HISTORY & PHYSICAL
[~2016-06-21 09:23] MED LIST changes: +NIACIN500 M1 PO; +PANTOPRAZOLE SO40 MG PO
--- NOTE | 2016-06-21 10:15 | NUR ---
Pt is 66 y/o male admit for failed dialysis fistula/access for hospitalist. pt alert and oriented x3. No medication allergies. Pt resides at home with his . Hx end stage renal disease,hemodialysis T-TH-Sat,fistula left arm,afib/ aflutter,neuropathy,hypercholest,htn,murmur,sob w activity,sleep apnea- CPAP,ulcer,gerd. Pt states he went to [facility] on Monday and had dialysis but the nurse had to do some manipulation of fistula to make it work. This am fistula would not work at all. pt has had trouble with this over the past week or so.
[2016-06-21] MEDS ORDERED: EPIPEN 2-P0.3 MG/0.3 SUB-Q (11:02)
[2016-06-21 11:23] LABS: BASOPHIL % 0.5 %; EOSINOPHIL # 0.7 K/uL (0.0-0.5); EOSINOPHIL % 8.1 %; HEMATOCRIT 30.4 % (37.0-53.0); HEMOGLOBIN 9.8 g/dL (11.0-16.0); IMMATURE GRANULOCYTE % 0.3 %; LYMPHOCYTE % 11.1 %; MCH 35.3 pg (27.0-34.0); MCHC 32.2 gm/dL (32.0-36.5); MCV 109.4 fl (83.0-98.0); MONOCYTE # 0.7 K/uL (0.0-1.0); MONOCYTE % 7.5 %; MPV 9.6 fl (9.4-12.4); NEUTROPHIL # (ANC) 6.2 K/uL (1.4-9.0); NEUTROPHIL % 72.5 %; NRBC % 0.5 /100WBC (0-0.00); PLATELET COUNT 201 K/uL (150-450); RBC 2.78 M/uL (3.50-5.50); RDW-CV 16.8 % (11.9-14.6); WBC 8.6 K/uL (4.0-11.0)
[2016-06-21 11:32] LABS: ANION GAP 18.2 (10.0-19.0); CALCIUM 9.2 mg/dL (8.5-10.5); MAGNESIUM 2.5 mg/dL (1.3-2.6); PHOSPHORUS 3.6 mg/dL (2.5-4.9); POTASSIUM 5.2 mMol/L (3.7-5.1)
[2016-06-21 11:35] LABS: INR - (THERAPEUTIC) 2.1 (0.9-1.1); PROTIME 23.1 SECONDS (9.6-11.1)
[2016-06-21 11:36] LABS: CREATININE 7.7 mg/dL (0.6-1.3)
--- NOTE | 2016-06-21 16:22 | NUR ---
PT ADMITTED AT 0930 TODAY FOR TEMPERORARY DIALYSIS PLACEMENT. LEFT AT 1200 FOR SURGERY AND THEN WENT TO DIALYSIS AFTER THAT. A/O AND COOPERATIVE. HAS EDEMA AND REDNESS ON BILATERAL ANKLE AREAS. PLAN IS TO RETURN TO FLOOR AT 1830 AND THEN GO HOME.
[2016-06-21] MEDS ORDERED: ASPIRIN LO-DOSE81 MG PO (19:30)
--- NOTE | 2016-06-21 21:37 | NUR ---
PT DISCHARGE EDUCATION ON HOME MEDICATION/CENTRAL LINE CARE COMPLETED, VERBALIZED UNDERSTANDING. PIV D/C'D PER PROTOCOL. PT DENIED HAVING ANY QUESTIONS/CONCERNS. PT ESCORTED OUT BY NURSE VIA WHEELCHAIR. LEFT IN POV. VSS UPON DISCHARGE.
== END 2016-06-21 20:25 | disposition disaster alternative care site (69) | DRG 314 ==
LOC: GMSU 09:23
PROVIDERS: ADMIT Internal Medicine
PROC: 05HM33Z Insertion of Infusion Device into Right Internal Jugular Vein, Percutaneous Approach (ICD-10-PCS; principal; 2016-06-21)
PROC: 5A1D00Z (ICD-10-PCS; 2016-06-21)
DX: T82.9XXA Unspecified complication of cardiac and vascular prosthetic device, implant and graft, initial encounter (principal); N18.6 End stage renal disease; N02.8 Recurrent and persistent hematuria with other morphologic changes; N25.81 Secondary hyperparathyroidism of renal origin; Z68.41 Body mass index [BMI] 40.0-44.9, adult; Y83.2 Surgical operation with anastomosis, bypass or graft as the cause of abnormal reaction of the patient, or of later complication, without mention of misadventure at the time of the procedure; I48.91 Unspecified atrial fibrillation; Z79.01 Long term (current) use of anticoagulants; Z87.891 Personal history of nicotine dependence; D63.1 Anemia in chronic kidney disease; Z79.82 Long term (current) use of aspirin; E87.5 Hyperkalemia; E66.9 Obesity, unspecified
CPT/HCPCS: C1750; J1644

== ENCOUNTER 2016-07-05 02:46 | Inpatient (IN) | payer MEDICARE, OTHER ==
[~2016-07-05] VITALS: Ht 180.3 cm; Wt 122.1 kg
--- NOTE | ~2016-07-05 | ER ---
PATIENT'S NAME: JOHNNY SHRESTHA [facility] AGE: 66 Y [address] ROOM: [address] [address] LOCATION: [facility] ADMIT DATE: 07/05/2016 ER/Outpatient Report DISCHARGE DATE: FAMILY PHYSICIAN: LIAM HEATH MD ATTENDING PHYSICIAN: LIAM HEATH HISTORY OF PRESENT ILLNESS: This is a 66-year-old male, who presents today with bleeding from his left arm fistula. The patient says it started 1 hour ago. He says that he coughed and the scab on his arm came off and it started bleeding. This is not the first time this has happened to him. He has had multiple ER visits for the same. He is also having problems controlling in dialysis which is why he has a right chest port as well. He denies feeling dizzy or lightheaded. He said it was a squirter, an arterial bleed. He had put lots of dressing, padding on it, and put some Coban on it. He also has some pain in the left side. Denies any numbness or tingling. No other complaints, otherwise, not dizzy, lightheaded, nauseous, vomiting, no other complaints. The patient does note that he used to be on Coumadin, but they stopped it because he is going to have a surgery literally tomorrow to have this fistula repaired by Dr. Harrington. PAST MEDICAL HISTORY: Includes, 1. End-stage renal disease, on dialysis Monday, , and Monday. Due for dialysis today. 2. Atrial fibrillation, on Coumadin, but held for surgery tomorrow. 3. Heart disease. 4. Chronic renal insufficiency. 5. Morbid obesity. PAST SURGICAL HISTORY: Fistula formation. SOCIAL HISTORY: He does not smoke, drink, or use any drugs. MEDICATIONS: Please see med list. ALLERGIES: NONE. OF NOTE, THE PATIENT HAS BEEN EVALUATED BY DR. HARRINGTON FOR THIS BLEEDING BEFORE THIS IS NOT THE FIRST TIME IT HAS HAPPENED. APPARENTLY, HE HAD SOME OUTFLOW PROBLEM OF THE FISTULA, SO DR. HARRINGTON WAS PLANNING TO CLOSE THAT AND CREATE A NEW ONE IN HIS LEFT UPPER ARM. THIS SURGERY WAS SUPPOSED TO BE ON MONDAY, PATIENT'S NAME: JOHNNY SHRESTHA [facility] AGE: 66 Y [address] ROOM: [address] [place], [place] [address] LOCATION: [facility] ADMIT DATE: 07/05/2016 ER/Outpatient Report DISCHARGE DATE: FAMILY PHYSICIAN: LIAM HEATH MD ATTENDING PHYSICIAN: LIAM HEATH 07/06/2016 AT 5:30 A.M. PHYSICAL EXAMINATION: GENERAL: The patient is 5 feet 11 inches, he is 133.6 kilos, heart rate 78, respiratory rate 16, temp is 96.9, sating 95% on room air. GENERAL: The patient looks chronically ill. He does not look toxic though. He is currently on a non-rebreather and sating 95% on room air at 2 L. He is alert and oriented x4. He is not pale or diaphoretic. He is not actively vomiting or retching. HEART: His heart rate is irregular at this time. Irregularly irregular, it is in the 70s to 80s, well controlled. LUNGS: His lungs sounds are clear. ABDOMEN: Soft. Nontender. He is obese. EXTREMITIES: In the left forearm, he has an arterial bleed. I can feel the thrill as well underneath it. He, otherwise, has warm and dry skin. Intact sensation of his fingers. EMERGENCY ROOM COURSE: We have removed the Band-Aid that he himself put on his arm. EMS with Coban. There was a scab there, but the patient literally just shifted in his bed and the scab came off and he started having arterial bleed again, pretty significant bleed. The patient is not pale or diaphoretic. He does not have a low blood pressure and he is not tachycardic. We held direct pressure for as long as we could, still arterial bleeding. We then put a tourniquet on his upper arm and then we put some Surgicel, Tegaderm, and pressure dressings on top and then wrapped it with Coban. This seems to have controlled the bleeding at this time. However, I do not think the patient can go home. This is the third or fourth time he has been here for this and he sets it off by just coughing or moving really, so I think he needs to stay in the hospital until he can have this done literally tomorrow by Dr. Harrington. I think if I sent him home, he would start bleeding again, and possible bleed out, it is a pretty serious arterial bleed. He has otherwise good pulses, but I feel a thrill in the left upper extremity as well. LABORATORY DATA: Labs were checked. His CBC shows a pretty stable H and H with hemoglobin of 9.8, hematocrit 30.8, platelets are 191, his INR at this time is 1.5. His renal panel shows a sodium 139, potassium 5.1, chloride 102, CO2 of 26, anion 16.1, BUN 48, creatinine is 7.3, GFR is 8. Discussed this with Dr. Heath, the patient's primary care doctor. The patient to be admitted to the hospital. We will arrange for him to have dialysis today and touch base with Dr. Harrington, so he can get his surgery tomorrow. IMPRESSION: Bleeding fistula. PATIENT'S NAME: JOHNNY SHRESTHA [facility] AGE: 66 Y [address] ROOM: [place] [address] LOCATION: [facility] ADMIT DATE: 07/05/2016 ER/Outpatient Report DISCHARGE DATE: FAMILY PHYSICIAN: LIAM HEATH MD ATTENDING PHYSICIAN: LIAM HEATH MD EMILY LIVINGSTON/modl /[id number] d: 07/05/16622 t: 07/08/16 1815, OUTPATIENT REPORT
--- NOTE | ~2016-07-05 | OR ---
PATIENT'S NAME: JOHNNY SHRESTHA [facility] AGE: 66 Y [address] ROOM: [address] [address] LOCATION: GICU ADMIT DATE: 07/05/2016 OR/Procedure Report DISCHARGE DATE: FAMILY PHYSICIAN: LIAM DALE MD ATTENDING PHYSICIAN: LIAM DALE SURGEON: Phillip Harrington MD PAYROLL BOOKKEEPER: DATE OF PROCEDURE: 07/06/2016 PREOPERATIVE DIAGNOSIS: End-stage renal disease. POSTOPERATIVE DIAGNOSIS: End-stage renal disease. PROCEDURE: Left forearm fistula ligation, left brachiocephalic AV fistula creation. GEOMAGNETIST: ALOK Gamez. ANESTHESIA: General. ESTIMATED BLOOD LOSS: 100 mL. OPERATIVE FINDINGS: Good thrill and bruit in the fistula. Strong radial and ulnar signals at the end the case. No further flow in previous left radiocephalic fistula. DESCRIPTION OF PROCEDURE: The patient was brought to the operating room, placed supine on the operative room table, placed under general anesthesia. While he was being prepped and draped, the patient's previous thin-walled pseudoaneurysm of his fistula ruptured and was bleeding profusely. We placed a tourniquet on emergently and then continued to prep. Once we had prepped and draped, we made an incision along the path of the open pseudoaneurysm, dissected around to identify the radiocephalic vein which was widely dilated and had a necrotic patch which had ruptured through. We then ligated it with several interrupted 2-0 Prolene stitches until there was no further flow. We brought down the tourniquet which also showed that there was no further flow. We then copiously irrigated that wound and closed it with interrupted 4-0 nylons. We then turned our attention to creating a new brachiocephalic fistula. We made an incision 2 cm proximal in the antecubital fossa. Dissected down the fascia. Incised the fascia in a longitudinal manner. Dissected out the brachial artery. We dissected out the cephalic vein, transected and ligated distally. We then gave 5000 units of heparin. We clamped proximally and distally the artery, made an arteriotomy. Sized it to 4 mm and then did a standard 6-0 Prolene anastomosis. We removed the clamps. There was excellent flow into the fistula. Deep layers were closed with 2-0 PATIENT'S NAME: JOHNNY SHRESTHA [facility] AGE: 66 Y [address] ROOM: [place] [address] LOCATION: GICU ADMIT DATE: 07/05/2016 OR/Procedure Report DISCHARGE DATE: FAMILY PHYSICIAN: LIAM DALE MD ATTENDING PHYSICIAN: LIAM DALE and 3-0 Vicryls. Skin was closed with running 4-0 Monocryl. There was a strong Doppler signal with thrill and a strong radial and ulnar signal at the end of the case. Heparin was used for anticoagulation and was reversed with protamine. The patient tolerated the procedure well, transferred to the recovery room, and then back to the floor. MD SAVANA RIVERA/bree /[id number] d: 07/06/16 2219 t: 07/11/16 1508, OPERATIVE SUMMARY
--- NOTE | ~2016-07-05 | CON ---
PATIENT'S NAME: JOHNNY SHRESTHA [facility] AGE: 66 Y [address] ROOM: [place] [address] LOCATION: GPCU ADMIT DATE: 07/05/2016 Consultation DISCHARGE DATE: FAMILY PHYSICIAN: LIAM DALE MD ATTENDING PHYSICIAN: LIAM DALE DATE OF CONSULTATION: 07/05/2016 REFERRING PHYSICIAN: HODA HARRINGTON MD This is a [facility] Nephrology consultation. REASON FOR CONSULTATION: End-stage renal disease, need for hemodialysis therapy. HISTORY OF PRESENT ILLNESS: This is a 66-year-old male patient, who is well known to Nephrology, who presented to the emergency room after an episode of bleeding from his AV fistula. The patient reported that he got up this morning with his regular routine and planned to head to [facility] when he sat on the edge of the bed and coughed. He did report that a scab on his left upper extremity fistula did come off at that time. Blood began to squirt out, and the patient tried to take care of it at home, however, would not stop bleeding. The patient was scheduled for his regularly scheduled outpatient hemodialysis appointment today at [facility]. He does usually undergo hemodialysis on Monday, , and Monday. He has had recent complications with a left upper extremity AV fistula, and he is planning to have an outpatient procedure with Dr. Harrington. The patient has had recent complications with bleeding and has been on long-term anticoagulation for a history of atrial fibrillation. The patient does have a past medical history of end-stage renal disease from biopsy-proven IgA nephropathy. He was initially on peritoneal dialysis. He currently has been receiving hemodialysis through this left upper extremity forearm primary radiocephalic AV fistula. Therefore, due to the patient's need for hemodialysis today, Dr. Perkins has been asked to consult on the patient to manage his inpatient hemodialysis care. The patient is currently utilizing a tunneled dialysis catheter placed in his right chest. PAST MEDICAL HISTORY: As listed above including: PATIENT'S NAME: JOHNNY SHRESTHA [facility] AGE: 66 Y [address] ROOM: [address] [address] LOCATION: GPCU ADMIT DATE: 07/05/2016 Consultation DISCHARGE DATE: FAMILY PHYSICIAN: LIAM DALE MD ATTENDING PHYSICIAN: LIAM DALE 1. End-stage renal disease, on hemodialysis therapy. 2. IgA nephropathy. 3. Obesity. 4. Secondary hyperparathyroidism. 5. Anemia of chronic kidney disease. 6. Hyperphosphatemia. 7. Demyelinating polyneuropathy. PAST SURGICAL HISTORY: 1. Left forearm primary radiocephalic AV fistula placement in 2008. 2. Dialysis catheter placement. 3. Shoulder surgery in 2008. 4. Left carpal tunnel release in 2001. 5. Appendectomy in 1963. 6. Multiple fistulograms of the left primary radiocephalic AV fistula by Dr. Harrington. FAMILY HISTORY: Reviewed and is noncontributory. There is no history of renal disease or dialysis. SOCIAL HISTORY: The patient lives in [place], [place]. He has a remote history of 40-pack- year smoking, quit about 13 years ago. 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 He is and does drink alcohol occasionally. ALLERGIES: SULFA AND INTOLERANCE TO IVON INHIBITORS INCLUDING LISINOPRIL, WHICH CAUSES A DRY COUGH. CURRENT MEDICATIONS: 1. Ascorbic acid 500 mg daily. 2. Aspirin 325 mg daily, currently on hold. 3. Coumadin, currently on hold. 4. Cinacalcet 30 mg every other day. 5. Fenofibrate 145 mg daily. 6. Ferrous sulfate 325 mg p.o. twice a day. 7. Fluconazole 200 mg daily. 8. Folic acid 1 mg daily. 9. Gabapentin 300 mg twice a day. 10. Lanthanum carbonate 1000 mg 3 times a day. 11. MiraLAX as needed. 12. Rythmol 225 mg 3 times a day. 13. Sevelamer 800 mg 4 tablets 3 times a day with meals. PATIENT'S NAME: JOHNNY SHRESTHA [facility] AGE: 66 Y [address] ROOM: [place] [address] LOCATION: [facility] ADMIT DATE: 07/05/2016 Consultation DISCHARGE DATE: FAMILY PHYSICIAN: LIAM DALE MD ATTENDING PHYSICIAN: LIAM DALE REVIEW OF SYSTEMS: GENERAL: Denies any fever, chills, or night sweats. EYES: No double vision or blurred vision. NOSE: No epistaxis or rhinorrhea. MOUTH: No gingival bleeding. THROAT: No sore throat, hoarseness, or cough. RESPIRATORY: Denies wheezing or hemoptysis. CARDIOVASCULAR: Denies any chest pain or palpitations. Does have a history of atrial fibrillation. GASTROINTESTINAL: Denies nausea, vomiting, or diarrhea. GENITOURINARY: Denies any urinary complaints. MUSCULOSKELETAL: Denies arthralgias or myalgias. NEUROLOGICAL: Denies numbness and tingling in the upper or lower extremities. He does have a history of polyneuropathy. He is on gabapentin for this. HEMATOLOGICAL: Positive for bleeding from the left forearm AV fistula. His Coumadin is currently being held. IMMUNOLOGICAL: No recent infections. PSYCHIATRIC: No depression or anxiety. LABORATORY DATA: Sodium is 139, potassium 5.1, chloride is 102, CO2 is 26, BUN is 48, creatinine 7.3, and glucose is 83. PHYSICAL EXAMINATION: VITAL SIGNS: Blood pressure is 107/70, heart rate is 82, respirations 16, temperature is 97.7, saturations are 96% on 2 L nasal cannula. GENERAL: On exam, this is an alert and oriented white male, who appears his approximate stated age, is in no acute distress. HEENT: His head is normocephalic and atraumatic. Eyes: Pupils are equal and reactive to light and accommodation. EOMs are intact. Nose is midline. Ears: TMs are clear. Mouth: No gingival bleeding. Throat is without lymphadenopathy, carotid bruits, or JVD. LUNGS: Lung sounds are clear to auscultation anterior and posteriorly. The patient is on 2 L nasal cannula. CARDIOVASCULAR: Regular rate and rhythm with no appreciable murmurs, rubs, or thrills. ABDOMEN: Soft, nontender, and obese. Bowel sounds positive. EXTREMITIES: Show no signs of peripheral edema, clubbing, or cyanosis. He does have a dressing noted to the left forearm AV fistula with clean, dry, and intact. CHEST: There is a right IJ tunneled line with dressings clean, dry, and intact. ASSESSMENT AND PLAN: 1. End-stage renal disease, requiring hemodialysis therapy. The patient is PATIENT'S NAME: JOHNNY SHRESTHA [facility] AGE: 66 Y [address] ROOM: [place] [address] LOCATION: GPCU ADMIT DATE: 07/05/2016 Consultation DISCHARGE DATE: FAMILY PHYSICIAN: LIAM DALE MD ATTENDING PHYSICIAN: LIAM DALE due for his hemodialysis today. We will obtain the patient's outpatient clinical record and provide hemodialysis accordingly. The patient will ultrafiltrate as tolerated due to the patient's blood pressures being labile. The patient is very close to his dry weight. 2. Failed dialysis access. The patient is planning to go to the OR with Dr. Harrington tomorrow for plans of a left forearm ligation of the current AV fistula and plans for a new fistula placement. We will continue to run him on his tunneled dialysis catheter at this time. 3. Hyperkalemia. This will improve with hemodialysis today. We will continue to monitor as there are no EKG changes at this time. 4. Long-term anticoagulation from Coumadin. This is currently being held for plans for upcoming procedure in the morning. This patient has been seen and assessed by Dr. Perkins. His care is being conducted in consultation with Dr. Perkins as well as me. We will plan further recommendations as they are forthcoming. ADE NAVARRO DNP, EVENT SERVICES MANAGER FOR M MD LUIS ANGEL SPENCE/modl /[id number] d: 07/05/16 2346 t: 07/27/16 1557, CONSULTATION REPORT
--- NOTE | ~2016-07-05 | CON ---
PATIENT'S NAME: JOHNNY LONGO [facility] AGE: 66 Y [address] ROOM: [id number] [place], [place] [address] LOCATION: GICU ADMIT DATE: 07/07/2016 Consultation DISCHARGE DATE: FAMILY PHYSICIAN: LIAM DALE MD ATTENDING PHYSICIAN: LIAM DALE DATE OF CONSULTATION: 07/20/2016 REFERRING PHYSICIAN: HODA AVILES MD REASON FOR EVALUATION: Leukocytosis. CHIEF COMPLAINT: The patient states that he is feeling a little bit better. HISTORY OF PRESENT ILLNESS: Mr. Longo was admitted to the hospital on the after onset of bleeding from his dialysis fistula. He had been feeling well prior to that. He underwent ligation of the fistula and placement of a new fistula. Unfortunately, after this time, he has had ongoing issues. He had marked hypotension and some alteration in mental status. He ended up intubated and on vasopressors. He was started on broad-spectrum antibiotics at that time. He remains on antibiotics to date. He has not had any fevers. He was on CRRT. He was extubated on the . He is still on and off vasopressors. He was having some loose stools, although he states he is now a little bit constipated. He had a little bit of abdominal pain this morning. He notes that his breathing is not too bad, but he has not been doing much, just lying in bed. He has marked jaundice as well. I am asked to evaluate for ongoing infection chronic anemia, history of demyelinating polyneuropathy, history of C. difficile about 4 years ago. FAMILY HISTORY: Noncontributory and is reviewed. SOCIAL HISTORY: Negative for tobacco or drug use. Lived with family prior to admission. REVIEW OF SYSTEMS: Pertinent positives include: MUSCULOSKELETAL: Patient with a little bit of back pain. GASTROINTESTINAL: Patient with a little bit of abdominal discomfort this a.m. No diarrhea at this point. GENITOURINARY: Patient has end-stage renal disease, on dialysis. The patient denies other symptoms. PATIENT'S NAME: JOHNNY LONGO [facility] AGE: 66 Y [address] ROOM: [id number] [place], [place] [address] LOCATION: GICU ADMIT DATE: 07/07/2016 Consultation DISCHARGE DATE: FAMILY PHYSICIAN: LIAM DALE MD ATTENDING PHYSICIAN: LIAM DALE Remainder of a 11-system review of systems is otherwise negative. PHYSICAL EXAMINATION: GENERAL: The patient is lying in bed, in no acute distress. Appears nontoxic. Jaundiced. HEENT: The patient is icteric. No conjunctival lesions noted. Ears, Nose, and Throat: Mouth has no thrush. CARDIOVASCULAR: Heart is slightly irregular on my visit. He is on Fly- Synephrine. RESPIRATORY: Breathing is easy, unlabored, on nasal cannula oxygen. Good air movement anterolaterally. GASTROINTESTINAL. Abdomen is soft and nontender. Normoactive bowel sounds are present. GENITOURINARY: No suprapubic tenderness. NEUROLOGIC: Patient is awake, alert, appropriate in conversation. LYMPHATIC: No cervical lymphadenopathy. MUSCULOSKELETAL: No effusions of fingers, wrists, elbows, shoulders, or knees. INTEGUMENTARY: Patient's central line in his right neck looks okay. His dialysis catheter site looks okay. His left arm is without cellulitis. LABORATORY DATA: Laboratory studies are reviewed in the electronic medical record. RADIOLOGY: Old reports were reviewed. His CT scan from today was just performed. Radiology read is pending. I do not see any evidence of pneumonia. He has some right basilar atelectasis. He has a small loculated right effusion. ASSESSMENT: 1. Leukocytosis. 2. Hypotension. PLAN: It is not clear that there is infection here. Despite broad spectrum and ongoing antibiotics, he remains intermittently hypotensive. This could easily be noninfectious in origin. He has had multiple negative blood cultures. His current antibiotics are clearly not helping his white blood cell count any. As it is not clear that there is infection, and antibiotics themselves may be the problem (alteration of ), I will discontinue the main antibiotics of his current regimen, stopping the vancomycin and ciprofloxacin. As he does have a history of C difficile colitis 4 years ago and does have a rising white blood cell count on broad-spectrum antibiotic use, I will keep him on empiric Flagyl for now. Should his white count decline in the next couple of days, I will continue a course of Flagyl through the . Should PATIENT'S NAME: CHERYLBRYANJOHNNY [facility] AGE: 66 Y [address] ROOM: [address] [place] [id number] LOCATION: [facility] ADMIT DATE: 07/07/2016 Consultation DISCHARGE DATE: FAMILY PHYSICIAN: LIAM DALE MD ATTENDING PHYSICIAN: LIAM DALE his white count not change, I would discontinue the Flagyl in 48 hours. Thank you allowing me to participate in the care of Mr. Longo. MD BENITEZ ASHER/bree /[id number] d: 07/20/16 1806 t: 07/21/16 0805, CONSULTATION REPORT
--- NOTE | ~2016-07-05 | CON ---
PATIENT'S NAME: JOHNNY SHRESTHA [facility] AGE: 66 Y [address] ROOM: [place] [address] LOCATION: GICU ADMIT DATE: 07/05/2016 Consultation DISCHARGE DATE: FAMILY PHYSICIAN: LIAM DALE MD ATTENDING PHYSICIAN: LIAM DALE REFERRING PHYSICIAN: HODA HARRINGTON MD CHIEF COMPLAINT: Hypotension. REASON FOR CONSULTATION: Hypotension observation in the intensive care unit. HISTORY OF PRESENT ILLNESS: A 66-year-old gentleman with a past medical history of IgA nephropathy leading to end-stage renal disease, currently on hemodialysis, had trouble with his AV fistula leading to bleeding yesterday from the fistula site triggering admission to the [facility]. Dr. Harrington took the patient to the OR to repair this AV fistula. Intraoperatively, he had epistaxis which was treated by ENT. Postoperatively, in the recovery room, low blood pressures were encountered. Due to persistent hypotension, he was started on vasopressors and medical consultation was obtained. On my encounter, he has recovered from his drowsiness and anesthesia, and he is alert. He at this point is complaining of soreness in his left arm where surgery was done other than that, he is not complaining of any dizziness, any trouble with the eyes, any trouble swallowing, any chest pain, any palpitation, abdominal pain, any PND, orthopnea, or dyspnea. He did complain of having this rash on lower extremities bilaterally for over a month now for which he has been using cream. REVIEW OF SYSTEMS: All other systems were reviewed and were negative except for what is mentioned in the HPI. PAST MEDICAL HISTORY: Includes end-stage renal disease, on hemodialysis; IgA nephropathy; morbid obesity; secondary hyperparathyroidism; anemia of chronic disease; hyperphosphatemia; demyelinating peripheral polyneuropathy. PAST SURGICAL HISTORY: Left forearm primary AV fistula repair, dialysis catheter placement, left carpal tunnel release, appendectomy, multiple fistulogram of the AV fistula. FAMILY HISTORY: Nonsignificant for any renal disease or cancer. PATIENT'S NAME: JOHNNY SHRESTHA [facility] AGE: 66 Y [address] ROOM: [place] [address] LOCATION: GICU ADMIT DATE: 07/05/2016 Consultation DISCHARGE DATE: FAMILY PHYSICIAN: LIAM DALE MD ATTENDING PHYSICIAN: LIAM DALE SOCIAL HISTORY: Former smoker, quit 12-13 years ago. ALLERGIES: THE PATIENT IS ALLERGIC TO LISINOPRIL, LEADING TO DRY COUGH. THE PATIENT IN ADDITION TO LISINOPRIL IS ALSO ALLERGIC TO SULFA DRUGS. CURRENT MEDICATIONS: Please see MAR. PHYSICAL EXAMINATION: VITAL SIGNS: Blood pressure 97/68, on the art line with vasopressors on; heart rate 87; respiratory rate of 16; saturating 96% on 2 L of oxygen. GENERAL: No acute distress. Alert and oriented x3. HEENT: Head, atraumatic, normocephalic. Eyes: Nonicteric. No pallor. Oropharynx, dry mucous membranes. CARDIOVASCULAR: S1 and S2. No murmurs, gallops, or rubs. LUNGS: Clear to auscultation bilaterally. ABDOMEN: Soft, nontender, nondistended. Bowel sounds are present. EXTREMITIES: Bilateral lower extremities show trace edema. SKIN: Bilateral lower extremity skin have mildly erythematic scaly rash without any evidence of cellulitis. VASCULAR: Left upper arm pulses +2. Surgical site is draped. PSYCH: Normal affect, mood, and speech. NEUROLOGIC: Cranial nerves 2 through 12 intact. No motor or sensory deficit noted. LAB WORK: Done postoperatively today showed hemoglobin of 9.4, white count of 7.4. Creatinine of 4.8, BUN 24, potassium of 5.1. INR was 1.5. ASSESSMENT: 1. Shock, undifferentiated. 2. Arteriovenous fistula repair, left arm, postoperative day 0. 3. IgA nephropathy. 4. End-stage renal disease, was dialyzed yesterday, Monday, , Monday dialysis. 5. Atrial fibrillation, on long-term anticoagulation with Coumadin. 6. Morbid obesity. 7. Eczema of the lower extremities. PLAN: We are going to admit this patient to the ICU. Etiology of the shock is unclear at this point. We are going to treat it as sepsis. Cautious fluid administration because of renal failure. He has already been given albumin PATIENT'S NAME: JOHNNY SHRESTHA [facility] AGE: 66 Y [address] ROOM: [place] [address] LOCATION: [facility] ADMIT DATE: 07/05/2016 Consultation DISCHARGE DATE: FAMILY PHYSICIAN: LIAM DALE MD ATTENDING PHYSICIAN: LIAM DALE twice, and we are going to give him 500 mL of Ringer's lactate as well. We will continue pressors at this point and wean pressors as allowed. We are going to obtain lactic acid, procalcitonin, blood culture twice, and a chest x- ray, as well. I noted the echocardiogram from May 2016 which did show right ventricular dilatation and pulmonary hypertension. It might be worthwhile to have Cardiology see the patient in the morning as well. We are going to recheck the lactic acid, CBC, and BMP in the morning, EKG 12-lead now, and troponins x1 as well. Thank you for allowing us in taking care of this patient. We will follow along. MD VANIA MAURICIO/bree /[id number] d: 07/07/16 0049 t: 07/07/16 0903, CONSULTATION REPORT
--- NOTE | ~2016-07-05 | CON ---
PATIENT'S NAME: JOHNNY SHRESTHA [facility] AGE: 66 Y [address] ROOM: [place] [address] LOCATION: GICU ADMIT DATE: 07/07/2016 Consultation DISCHARGE DATE: FAMILY PHYSICIAN: LIAM DALE MD ATTENDING PHYSICIAN: LIAM DALE DATE OF CONSULTATION: 07/09/2016 REFERRING PHYSICIAN: HODA HARRINGTON MD REASON FOR CONSULTATION: Abnormal liver enzymes and coagulopathy, possible liver failure. HISTORY OF PRESENT ILLNESS: The patient is unable to provide much of history. The entire history has been obtained from the patient's as well as his medical records. According to his records, this gentleman has a history of IgA nephropathy leading to end- stage renal disease, who has been on hemodialysis. He was admitted to the hospital on the with the bleeding from the fistula site. He had gone to the operating room. Intraoperatively, the previous fistula was closed and a new brachiocephalic fistula was made. Subsequent to the surgery, the patient continued to have severe hypotension. Thus, he was ultimately admitted, thought was of sepsis. He has continued to have fluctuating blood pressures. He was on Coumadin for atrial fibrillation. His INR suddenly georges from 47 to 200. He has been on and off hypotensive. His bilirubin also increased to 2.4, biliary ALT is 47, AST is 1893, alkaline phosphatase is 75. Albumin is 4.1. We have been consulted for further evaluation. PAST MEDICAL HISTORY: Significant for: 1. End-stage renal disease, on hemodialysis. 2. IgA nephropathy. 3. Morbid obesity. 4. Secondary hyperparathyroidism. 5. Anemia of chronic disease. 6. Hyperphosphatemia. 7. Demyelinating peripheral polyneuropathy. 8. He also been found to have a pulmonary hypertension. PAST SURGICAL HISTORY: Significant for: 1. Left forearm primary radiocephalic AV fistula placement in 2008. 2. Dialysis catheter placement. 3. Shoulder surgery in 2008. 4. Left carpal tunnel release in 2001. 5. Appendectomy in 1963. PATIENT'S NAME: JOHNNY SHRESTHA [facility] AGE: 66 Y [address] ROOM: [place] [address] LOCATION: GICU ADMIT DATE: 07/07/2016 Consultation DISCHARGE DATE: FAMILY PHYSICIAN: LIAM DALE MD ATTENDING PHYSICIAN: LIAM DALE 6. Multiple fistulogram of the fistula by Dr. Harrington. SOCIAL HISTORY: The patient lives in [place], [place]. He has a remote history of 40 pack years smoking, quit about 13 years ago. 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 He is and occasionally drinks alcohol. His tells me that he has never had significant drinking. ALLERGIES: SULFA. HE IS ALSO INTOLERANT TO IVON INHIBITORS INCLUDING LISINOPRIL, WHICH CAUSES A DRY COUGH. MEDICATIONS: At the time of admission include: 1. Ascorbic acid. 2. Aspirin. 3. Coumadin. 4. Cinacalcet. 5. Fenofibrate. 6. Ferrous sulfate. 7. Fluconazole. 8. Folic acid. 9. Gabapentin. 10. Lanthanum carbonate. 11. MiraLAX. 12. Rythmol. 13. Sevelamer. His current medications include: 1. Piperacillin. 2. Tazobactam. 3. Vancomycin. 4. Regular insulin. 5. He receives regular albumin infusions, hypotension. 6. Warfarin. 7. Sodium was stopped today. 8. Levofloxacin. 9. Pantoprazole. 10. Sodium polyethylene glycol p.r.n. 11. Sevelamer carbonate. 12. Lanthanum carbonate. 13. Fenofibrate. 14. Niacin. 15. He is also using even Fly-Synephrine right now for control of his blood pressure. PATIENT'S NAME: JOHNNY SHRESTHA [facility] AGE: 66 Y [address] ROOM: [place] [address] LOCATION: [facility] ADMIT DATE: 07/07/2016 Consultation DISCHARGE DATE: FAMILY PHYSICIAN: LIAM DALE MD ATTENDING PHYSICIAN: LIAM DALE REVIEW OF SYSTEMS: Relatively limited vision, unable to provide any history. However, it was reviewed from the chart. Negative other than what is mentioned in the history of present illness and past medical history. PHYSICAL EXAMINATION: GENERAL: He is responsive, but unable to communicate much. VITAL SIGNS: Show a blood pressure of 167/30 in the morning and now 100/61, temperature 96.1, pulse is 98 per minute, respiratory rate is 20. HEENT: Reveals pallor. Clinically he is not icteric. There is a limited exam. CHEST: He has good air entry bilaterally. ABDOMEN: Soft with slight hepatomegaly. MUSCULOSKELETAL: He has cellulitis of both lower extremities. Other exam is somewhat limited. LABORATORY DATA: CT of the head was done today because of mental status changes that were unremarkable. His liver profile shows a bilirubin of 2.4, ALT of 33.7, AST of 1893, alkaline phosphatase 75. INR is greater than 200, it was 47 yesterday. Blood cultures are reported to be negative to date. Renal panel shows sodium of 135, potassium 5.0, chloride 97, bicarb is 23, BUN is 30, creatinine is 5.8. Albumin is 3.6. CBC showed WBC of 12.25, hemoglobin 9.9, hematocrit 31.9, platelets were 215. Chest shows a catheter in place. No focal infiltrates. His troponin was just above normal at 0.049. In addition, he has also had an echo done. Echo shows normal EF, but he has a mitral stenosis. IMPRESSION: This is a very complex patient with multiple etiologies of his liver problem. He had an abdominal ultrasound done on 10/01/2013 was unremarkable. He has not had an ultrasound done since then. CT of the abdomen and pelvis was also not recently done. Impression is also the etiology of this could be multifactorial including sepsis as well as hypotension. He has a very high INR, again this is a reflection of his poor liver perfusion. I would suggest that we continue to manage this patient with underlying hypotension as well as other medical problems by treating the underlying etiology of hypotension. The LFTs need to be continued to be watched. He may undergo correction of coagulopathy as needed. I would probably repeat abdominal ultrasound. We should also send serology for hepatitis B and C. Clinically and according to the various labs, it does not appear to be a case of acute cholangitis. However, the ultrasound will be helpful. We will continue to follow this patient along with you. Thank you once again for the courtesy of this consultation. PATIENT'S NAME: JOHNNY SHRESTHA [facility] AGE: 66 Y [address] ROOM: [id number] [place] [id number] LOCATION: [facility] ADMIT DATE: 07/07/2016 Consultation DISCHARGE DATE: FAMILY PHYSICIAN: LIAM DALE MD ATTENDING PHYSICIAN: LIAM DALE ISAURAF MD LORY STEELE/bree /[id number] d: 07/09/16 1502 t: 07/11/16 1826, CONSULTATION REPORT
--- NOTE | ~2016-07-05 | OR ---
PATIENT'S NAME: JOHNNY SHRESTHA [facility] AGE: 66 Y [address] ROOM: [place] [address] LOCATION: GICU ADMIT DATE: 07/07/2016 OR/Procedure Report DISCHARGE DATE: FAMILY PHYSICIAN: LIAM DALE MD ATTENDING PHYSICIAN: LIAM DALE SURGEON: Paulina Hill MD DATE OF PROCEDURE: 07/09/2016 PROCEDURE PERFORMED: Rapid sequence endotracheal intubation. INDICATIONS: Respiratory distress, altered mental status, acute liver failure. DESCRIPTION OF PROCEDURE: I obtained verbal permit from the patient's prior to intubation. The patient was very confused and agitated at the time of the procedure. A GlideScope with a #3 blade was inserted into the oropharynx at which time the vocal cords were visualized. Sedation, analgesia, and paralysis were obtained with 3 mg of Versed, 100 mcg of fentanyl, and 50 mg of rocuronium. A #8 endotracheal tube was inserted and visualized going through the vocal cords. The stylet was removed. The end-tidal CO2 levels were measured in the mid 40s. Breath sounds heard in both lung dias equally. The endotracheal tube was placed at 25 cm measured at the teeth. COMPLICATIONS: None. ESTIMATED BLOOD LOSS: None. PAULINA HILL MD RFViviana/modl /[id number] d: 07/09/16 1558 t: 07/10/16 1337, OPERATIVE SUMMARY
--- NOTE | ~2016-07-05 | OR ---
PATIENT'S NAME: JOHNNY SHRESTHA [facility] AGE: 66 Y [address] ROOM: [place] [address] LOCATION: [facility] ADMIT DATE: 07/07/2016 OR/Procedure Report DISCHARGE DATE: FAMILY PHYSICIAN: LIAM DALE MD ATTENDING PHYSICIAN: LIAM DALE SURGEON: Paulina Thomas MD DATE OF PROCEDURE: 07/09/2016 PROCEDURE PERFORMED: Ultrasound-guided right internal jugular central venous catheter placement. INDICATIONS: Shock, acute respiratory failure, acute encephalopathy, need for vasopressors. CONSENT: Consent was obtained from the patient's after all the indications, risks, benefits, and alternatives were explained at length. The patient was intubated and sedated at the time of the procedure. DESCRIPTION OF PROCEDURE: A time-out was performed. The patient's right neck region was prepped and draped in sterile fashion using chlorhexidine scrub. Anesthesia was achieved with 1% lidocaine. The right internal jugular vein was accessed under ultrasound guidance using a finder needle. Ultrasound images were permanently documented. Venous blood was withdrawn, and a guidewire was advanced through the needle and the vein, and the needle was withdrawn. A small incision was made with a 10 blade scalpel. The dilator was advanced over the guidewire until appropriate dilation was obtained. The dilator was removed, and a 7.5-Nepalese central venous triple-lumen catheter was advanced over the guidewire and secured into place with 2 sutures at 20 cm. The guidewire was removed. At the time of procedure completion, all ports aspirated and flushed properly. Postprocedure x-ray showed the tip of the catheter within the superior vena cava. COMPLICATIONS: None. ESTIMATED BLOOD LOSS: Less than 10 mL. PAULINA THOMAS MD RFN/modl PATIENT'S NAME: JOHNNY SHRESTHA [facility] AGE: 66 Y [address] ROOM: [place] [address] LOCATION: [facility] ADMIT DATE: 07/07/2016 OR/Procedure Report DISCHARGE DATE: FAMILY PHYSICIAN: LIAM DALE MD ATTENDING PHYSICIAN: LIAM DALE /[id number] d: 07/09/16 1601 t: 07/10/16 1344, OPERATIVE SUMMARY
--- NOTE | ~2016-07-05 | OR ---
PATIENT'S NAME: TYSON LONGO [facility] AGE: 66 Y [address] ROOM: [place] [id number] LOCATION: GICU ADMIT DATE: 07/05/2016 OR/Procedure Report DISCHARGE DATE: FAMILY PHYSICIAN: LIAM DALE MD ATTENDING PHYSICIAN: LIAM DALE SURGEON: Anthony Irby MD SAMPLES AND REPAIRS PREPARER: DATE OF PROCEDURE: 07/06/2016 CONSULTATION NOTE AND PROCEDURE NOTE CHIEF COMPLAINT: Uncontrolled right epistaxis. HISTORY: Tyson Longo is a 66-year-old gentleman, who I am seeing intraoperatively after his surgery with Dr. Harrington. The patient developed an uncontrolled right epistaxis. No other significant history noted. Past medical history, social history, family history, and review of systems all documented and reviewed in the chart. PHYSICAL EXAMINATION: Active bleeding was noted from the right naris. PROCEDURE NOTE: The nose and nasopharynx were suctioned clear of clot on both sides of the nose. The patient was noted to have a septal deviation. With the aid of the nasal endoscope on the right side, bleeding site was identified along the lateral nasal wall just at the takeoff of the middle turbinate. This was cauterized with suction cautery. The cautery instrument was placed parallel to the endoscope to control the bleeding. The patient tolerated this well. Blood loss was 200 mL. ANTHONY IRBY MD DGO/modl /[id number] d: 07/06/16 2141 t: 07/08/16 1625, OPERATIVE SUMMARY
--- NOTE | ~2016-07-05 | CON ---
PATIENT'S NAME: JOHNNY SHRESTHA [facility] AGE: 66 Y [address] ROOM: [address] [place], [place] [address] LOCATION: GICU ADMIT DATE: 07/07/2016 Consultation DISCHARGE DATE: FAMILY PHYSICIAN: LIAM DALE MD ATTENDING PHYSICIAN: LIAM DALE DATE OF CONSULTATION: 07/09/2016 REFERRING PHYSICIAN: HODA AVILES MD REQUESTING PHYSICIAN: Janine Rockwell MD REASON FOR CONSULTATION: Evaluation and management of a patient with shock and altered mental status. CHIEF COMPLAINT: Altered mental status. 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 He underwent ligation of the left forearm fistula with creation of a new fistula in his left arm with the brachiocephalic vessels. The patient developed significant epistaxis during surgery and underwent cauterization intraoperatively, done by Dr. Ritchie. Afterwards, the patient was found to be hypotensive, reason for which he was transferred to the intensive care unit and started on phenylephrine drip. Attempts at weaning him off phenylephrine drip have been unsuccessful. This morning, the patient was found to be very confused and agitated. He was started on dialysis, and his blood pressure remained stable, but his mental status still remained very altered. It was noted that he required up to 3 L of oxygen. He has a history of obstructive sleep apnea, and he is on CPAP at home. During this admission, his oxygen requirements have been fluctuating from room air to up to 8 L. Because of his persistent shock with altered mental status, I was asked to come and evaluate the patient. At the time of my evaluation, the patient was not able to provide any meaningful information, as he was very agitated. Most of the information was obtained from talking to other healthcare providers and reviewing the medical records available. A procalcitonin done yesterday was elevated at 2.28. Interestingly, an INR done today was above the upper limit of detection, and the prothrombin time was more than 200. Yesterday, his INR was 4. He has history of chronic atrial fibrillation and flutter and is on long- term anticoagulation with Coumadin. He underwent DC cardioversion in 2014 and PATIENT'S NAME: JOHNNY SHRESTHA [facility] AGE: 66 Y [address] ROOM: [address] [address] LOCATION: [facility] ADMIT DATE: 07/07/2016 Consultation DISCHARGE DATE: FAMILY PHYSICIAN: LIAM DALE MD ATTENDING PHYSICIAN: LIAM DALE has been on Multaq since then. PAST MEDICAL HISTORY: 1. IgA nephropathy. 2. End-stage renal disease, on hemodialysis. 3. Morbid obesity. 4. Secondary hyperparathyroidism. 5. Anemia of chronic disease. 6. Obstructive sleep apnea. 7. Pulmonary hypertension. 8. Hyperphosphatemia. 9. Demyelinating peripheral neuropathy. PAST SURGICAL HISTORY: 1. Left forearm primary AV fistula repair. 2. Left carpal tunnel release. 3. Appendectomy. 4. Multiple fistulograms of the AV fistula. 5. Dialysis catheter placement. FAMILY HISTORY: His mother had breast cancer, his father had prostate cancer, and his paternal grandmother had hypertension and coronary artery disease. SOCIAL HISTORY: He is a former smoker and quit approximately 12 years ago. There is no history of alcohol or illicit drug abuse. He has strong social support and lives at home with his . ALLERGIES: SULFA DRUGS AND BEES. HE ALSO DEVELOPED COUGH AFTER TAKING LISINOPRIL. CURRENT MEDICATIONS: Reviewed, as per chart. 1. Notably, he was started on Zosyn and Levaquin yesterday. 2. He is also on:. a. Multaq. b. Niacin. c. Renvela. d. Sensipar. e. TriCor. REVIEW OF SYSTEMS: Could not be obtained because of the patient's clinical status. He was very agitated and not able to provide any information. PATIENT'S NAME: JOHNNY SHRESTHA [facility] AGE: 66 Y [address] ROOM: [address] [address] LOCATION: [facility] ADMIT DATE: 07/07/2016 Consultation DISCHARGE DATE: FAMILY PHYSICIAN: LIAM DALE MD ATTENDING PHYSICIAN: LIAM DALE PHYSICAL EXAMINATION: VITAL SIGNS: Temperature is 96.1, heart rate is 98, respiratory rate is 26, blood pressure is 100/61, and oxygen saturation is 94% on 3 L of oxygen. Weight is 132.7 kg and height 5 feet 11 inches with a BMI of 40. GENERAL: He is a male in bed, agitated at times, but in no significant respiratory distress. However, he is pulling out his nasal cannula at times, and his oxygen saturations will drop into the 80s. HEENT: Atraumatic head. PERRLA. Anicteric sclerae. Moist oral mucosa. No pharyngeal erythema. NECK: He has JVD up to the angle of the mandible. Supple neck. No lymphadenopathy. Trachea is midline. No thyromegaly. RESPIRATORY: He has decreased breath sounds at both lung bases bilaterally, clear to auscultation. CARDIOVASCULAR: Irregularly irregular rhythm and rate with a 3/6 systolic murmur along the left lower sternal border. ABDOMEN: Obese, soft, nontender, and nondistended. Bowel sounds are present. EXTREMITIES: He has +1 bilateral lower extremity edema. No cyanosis. No clubbing. NEUROLOGIC: He is moving extremities, but not able to follow commands. LABORATORY DATA: Pertinent data as per History of Present Illness. Cardiac echo from July 07, 2016, showed normal ejection fraction of 55%, paradoxical septal motion with dilated right atrium and right ventricle, moderate mitral valve stenosis, severe pulmonary hypertension with an estimated pulmonary pressure of 74 mmHg. WBC today was 25 after being 19.5 yesterday, hemoglobin was 9.9, hematocrit of 31.9, and platelets of 215. Sodium of 135, potassium of 5, chloride of 97, total serum bicarbonate of 23, glucose of 77, calcium of 9, BUN of 30, and creatinine of 5.8. Albumin of 3.6. Phosphorus of 6.1. Head CT from today was unremarkable. ASSESSMENT: 1. Shock. This seems to be cardiogenic due to acute cor pulmonale. I am not ruling out a septic component as well. 2. Cor pulmonale with acute decompensation. The patient has severe pulmonary hypertension apparently at baseline. 3. Altered mental status. This is multifactorial due to shock, sepsis, possible DIC. 4. Severe sepsis. This can be in the context of pneumonia versus bloodstream infection or other source that still needs to be identified. 5. End-stage renal disease. He is on dialysis Monday, , and Monday. 6. Acute respiratory failure. This is multifactorial in the context of acute cor pulmonale and possible pneumonia. PATIENT'S NAME: JOHNNY SHRESTHA [facility] AGE: 66 Y [address] ROOM: [id number] [place], [place] [address] LOCATION: [facility] ADMIT DATE: 07/07/2016 Consultation DISCHARGE DATE: FAMILY PHYSICIAN: LIAM DALE MD ATTENDING PHYSICIAN: LAIM DALE 7. Obstructive sleep apnea. He is chronically on CPAP. PLAN: 1. Because of his multiorgan failure, without a clear etiology for possible sepsis, I think the patient would benefit from intubation and initiation of mechanical ventilation for better control of his respiratory and mental statuses. I discussed this with the patient's over the phone. 2. He will need arterial and central venous lines. 3. I would continue with the current antibiotics and vasopressors. 4. I will add liver function tests as I suspect the patient developed acute liver failure. 5. We will follow up the nephrology recommendations regarding hemodialysis. Because of his acute decompensation in his cor pulmonale, he may need CRRT. The current assessment and plan was discussed with Dr. Rockwell, Dr. Perkins, and the patient's over the phone. I spent 40 minutes of critical care time managing shock, altered mental status, and multiorgan failure in a patient with multiple comorbidities. I personally reviewed the data, coordinated care among healthcare providers, and personally updated the patient's over the phone. This time is independent from the time spent for procedures. I would like to thank you, Dr. Rockwell, for giving me the opportunity to participate in this patient's care. MD TIM HERRERA/bree /[id number] d: 07/09/16 1805 t: 07/10/16 1346, CONSULTATION REPORT
--- NOTE | ~2016-07-05 | HP ---
PATIENT'S NAME: TYSON LONGO [facility] AGE: 66 Y [address] ROOM: [place] [address] LOCATION: GPCU ADMIT DATE: 07/05/2016 History & Physical DISCHARGE DATE: FAMILY PHYSICIAN: LIAM DALE MD ATTENDING PHYSICIAN: LIAM DALE DATE OF SERVICE: CHIEF COMPLAINT: Bleeding from left arm. HISTORY OF PRESENT ILLNESS: Tyson Longo is a chronic dialysis patient with a history of IgA disease, who was followed by the regenerator operator here. He has had bleeding coming from his AV fistula now over the last month. He is followed by Dr. Harrington and has planned surgery on that fistula for tomorrow. However this morning, he got up, getting ready for dialysis at home, coughed and blood started to spurt from his fistula. He was presented to the emergency room and evaluated there by Dr. Alas. I was called because I am the patient's primary care physician to admit him to the hospital and asked Dr. Harrington and Dr. Perkins for consultation both his vascular surgeon and regenerator operator respectively. When I see him, he is resting quietly in bed, has a dressing on his left arm, and he has a blood pressure of 107/80, pulse of 80 and is afebrile. For now, we will keep him n.p.o.. If they want to do surgery tomorrow or later today, we will start his prior home medications and he is scheduled for dialysis as mentioned. I have asked his nurse Oneal to call Dr. Perkins or Dr. Pina and decide what they want to do in that regard. MEDICATIONS: Reviewed. ALLERGIES: NOTED. SOCIAL HISTORY: Noncontributory. FAMILY HISTORY: Negative. REVIEW OF SYSTEMS: Well outlined in the last history and physical. PHYSICAL EXAMINATION: PATIENT'S NAME: TYSON LONGO [facility] AGE: 66 Y [address] ROOM: [place] [address] LOCATION: GPCU ADMIT DATE: 07/05/2016 History & Physical DISCHARGE DATE: FAMILY PHYSICIAN: LIAM DALE MD ATTENDING PHYSICIAN: LIAM DALE VITAL SIGNS: Noted. He is alert and oriented x3. Lying in bed, on PCU. I believe he is competent. HEENT: Shows he wears glasses. Pupils are reactive to light. TMs not visualized. Posterior pharynx clear. NECK: Unremarkable. LUNGS: Clear bilaterally. HEART: Shows no murmur, gallop, or rub. ABDOMEN: Benign without point tenderness or mass. PELVIC/RECTAL: Not done. EXTREMITIES: Show pressure dressing on his left forearm where his fistula lives. NEUROLOGIC: No lateralizing signs. ASSESSMENT: 1. Pulsatile bleeding coming from an open wound fistula left arm. 2. History of IgA disease. 3. Chronic renal failure, on dialysis. PLAN: As above. LIAM DALE MD GRINDER OPERATOR EXTERNAL TOOL/modl /[id number] D: T: HISTORY & PHYSICAL
--- NOTE | ~2016-07-05 | CON ---
PATIENT'S NAME: JOHNNY SHRESTHA [facility] AGE: 66 Y [address] ROOM: [id number] [place], [place] [address] LOCATION: GICU ADMIT DATE: 07/07/2016 Consultation DISCHARGE DATE: FAMILY PHYSICIAN: LIAM HEATH MD ATTENDING PHYSICIAN: LIAM HEATH REFERRING PHYSICIAN: HODA HARRINGTON MD REFERRING PHYSICIANS: 1. Liam Heath M.D. 2. Dr. Harrington. REASON FOR CONSULT: Hypotension. HISTORY OF PRESENT ILLNESS: This is a 66-year-old gentleman, well known to Dr. Vinson with history of paroxysmal atrial fibrillation. He was seen in the clinic on June 07, 2016, for preop risk evaluation prior to a fistula surgery. At that time, he was off long-term anticoagulation, but he was also in atrial fibrillation. Therefore, his Multaq was stopped. He was having some trouble with his fistula while awaiting the surgery and had issues with bleeding. Therefore, he was admitted to the hospital the day prior to his scheduled surgery. He now is post fistula and has been placed in ICU on pressors because he is hypotensive. During his surgery, he did have uncontrolled epistaxis, which was cauterized by Dr. Ritchie. The patient admits that he has been having trouble with epistaxis at home. Currently, he states he is feeling much better now that his blood pressures are back up. He was very lightheaded and nauseated when his blood pressures were low. He states that his last dialysis was yesterday, they are using a tunnel catheter currently. He is not experiencing any exertional chest pain. He denies shortness of breath, although he has not been up walking much due to his hypotension. He does carry a history of severe pulmonary hypertension and has been treated for obstructive sleep apnea. In May, he reports that he had not been wearing the CPAP and was encouraged to resume that at the current settings. PAST MEDICAL HISTORY: 1. Atrial fibrillation. He did have DC cardioversion in April 2014, now is in persistent atrial fibrillation. 2. Essential hypertension. 3. Hyperlipidemia. 4. Hypotension. 5. Nonobstructive coronary artery disease per left heart catheterization in September 2013. 6. Obstructive sleep apnea. 7. He is on high-risk medications with Multaq. 8. Long-term anticoagulation, on warfarin. PATIENT'S NAME: JOHNNY SHRESTHA [facility] AGE: 66 Y [address] ROOM: [id number] [place] [address] LOCATION: [facility] ADMIT DATE: 07/07/2016 Consultation DISCHARGE DATE: FAMILY PHYSICIAN: LIAM HEATH MD ATTENDING PHYSICIAN: LIAM HEATH 9. Hypotension with dialysis. 10. 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 11. Anemia of chronic diseases. 12. History of gastric ulcers. 13. Obesity. PAST SURGICAL HISTORY: 1. Appendectomy that was perforated in 1963. 2. Left carpal tunnel surgery in 2001. 3. Shoulder surgery in October 2007. 4. Peripheral dialysis catheter placement. 5. 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 6. Left forearm primary radiocephalic AV fistula placement in October 2008. 7. EGD with biopsy in 2010. 8. Left heart catheterization on 10/01/2013, nonobstructive. 9. Cardioversion, 04/08/2014 and April 2014. 10. Right wrist arthrotomy and synovectomy in 2013. ALLERGIES: IVON INHIBITORS CAUSE COUGH. HOME MEDICATIONS: 1. Acetaminophen 650 mg every 6 hours as needed. 2. Aspirin 81 mg once a day. 3. Bactroban 2% cream, apply to affected areas. 4. mg every meal. 5. MiraLax. 6. Multaq 400 mg twice a day, which had been stopped and now restarted. 7. Nephron FA 1 tablet every day. 8. Niacin 500 mg 1 tablet every day. 9. Renvela 800 mg 5 tablets daily with meals. 10. Sensipar 30 mg 1 capsule every other day. 11. TriCor 145 mg daily. 12. Warfarin 2 mg daily. FAMILY HISTORY: Father is , he had prostate cancer. Mother is , had breast cancer. Maternal grandmother had hypertension and DC. He has 2 brothers and 2 sisters, who are healthy. He does not have any children. SOCIAL HISTORY: He is a former smoker. He smoked 1/2 pack of cigarettes a day for 35 years. He quit in 2005. He is . He has been hospitalized for pneumonia in PATIENT'S NAME: JOHNNY SHRESTHA [facility] AGE: 66 Y [address] ROOM: [id number] [place], [place] [address] LOCATION: GICU ADMIT DATE: 07/07/2016 Consultation DISCHARGE DATE: FAMILY PHYSICIAN: LIAM HEATH MD ATTENDING PHYSICIAN: LIAM HEATH May 2015. REVIEW OF SYSTEMS: GENERAL: He complains of fatigue. HEAD: He has no history of headache. EYES: He wears corrective lenses. EARS: No problems with hearing. NOSE: No epistaxis or rhinorrhea. MOUTH: No gingival bleeding. THROAT: Denies sore throat, hoarseness, or difficulty swallowing. PULMONARY: He does have problems with cough, on IVON inhibitor. He also has severe pulmonary hypertension with obstructive sleep apnea. GI: Negative for nausea, vomiting, or diarrhea. No melena or hematochezia. : Negative for urinary frequency. He does not make any urine. He is on dialysis 3 times a week. ENDOCRINE: He denies hyper or hypoglycemia or hypothyroidism. NEUROLOGIC: He denies problems with TIA or CVA symptomatology. DERMATOLOGIC: He has rash found in lower extremities. HEMATOLOGIC: He has anemia of chronic disease. MUSCULOSKELETAL: Denies arthralgias. PHYSICAL EXAMINATION: VITAL SIGNS: His blood pressure today was 117/64 to 94/48. He is on Fly- Synephrine . His heart rate is 80 to 93. He is in atrial fibrillation. Saturations are 96% on 2 L of oxygen. His weight is up approximately 4 kg from admission weight. GENERAL: He is alert and oriented. Answers questions appropriately. SKIN: Warm, dry, and pink. NECK: Soft and supple. No lymphadenopathy. No thyromegaly. JVD is flat. LUNGS: Lung sounds were clear. CV: Very distant, but irregular. Telemetry showing atrial fibrillation. ABDOMEN: Soft. His new fistula in the left arm has a faint thrill. EXTREMITIES: No peripheral edema. No clubbing. No cyanosis. Hemoglobin is 9.8 and INR is 4.0. ASSESSMENT: 1. Hypotension. His hemoglobin is pretty good for him. His weight is up a little bit. We will discuss further recommendations with Dr. Vinson. 2. Atrial fibrillation, now persistent. He is back on Multaq. We will discuss the need to continue that since he had been off long-term anticoagulation. We will check an EKG. The assessment and plan, physical exam, and further recommendations will be forthcoming once Dr. Vinson sees the patient. PATIENT'S NAME: JOHNNY SHRESTHA [facility] AGE: 66 Y [address] ROOM: [place] [address] LOCATION: [facility] ADMIT DATE: 07/07/2016 Consultation DISCHARGE DATE: FAMILY PHYSICIAN: LIAM HEATH MD ATTENDING PHYSICIAN: LIAM HEATH AROLDO CALHOUN APRN FOR RITU VINSON MD TGP/modl /[id number] d: 07/08/161930 t: 08/26/16 0911, CONSULTATION REPORT
--- NOTE | ~2016-07-05 | CON ---
PATIENT'S NAME: JOHNNY SHRESTHA [facility] AGE: 66 Y [address] ROOM: [place] [address] LOCATION: GICU ADMIT DATE: 07/07/2016 Consultation DISCHARGE DATE: FAMILY PHYSICIAN: LIAM DALE MD ATTENDING PHYSICIAN: LIAM DALE DATE OF CONSULTATION: 07/07/2016 REFERRING PHYSICIAN: Janine Rockwell MD REASON FOR VISIT: Lower leg dermatitis. HISTORY OF PRESENT ILLNESS: This is a pleasant 66-year-old male patient who was admitted to [facility] with a bleeding AV fistula. He has a significant history of IgA nephropathy, end-stage renal disease, morbid obesity, and secondary hyperparathyroidism. He has had dermatitis to his legs for the past few months but on/off over the last 3 years. He notes it is worse in the winter, no other triggers noted. He has been treated by Dermatology in the past but he is unsure of what treatment they prescribed. He suffers from lower leg neuropathy, so he is unable to tell me if he has any pruritus or pain. He is a nondiabetic. He does admit Eucerin ointment seems to help. He currently is performing no treatment to the site. He does not wear any form of compression at home. He notes some lower leg edema at times. He denies venous insufficiency or intermittent claudication symptoms. He denies fever, chills, or sweats. He denies chest pain or shortness of breath. He denies history of asthma. He has no other dermatitis spots noted to his skin. PAST MEDICAL HISTORY: IgA nephropathy, end-stage renal disease, morbid obesity, secondary hyperparathyroidism, anemia of chronic disease, hyperphosphatemia, and demyelinating peripheral polyneuropathy. PAST SURGICAL HISTORY: Left forearm primary AV fistula repair, multiple fistulograms, dialysis catheter placement, left carpal tunnel release, and appendectomy. FAMILY HISTORY: Reviewed and found to be noncontributory to present illness. SOCIAL HISTORY: The patient lives in [place]. He quit smoking in 2005. He reports rare PATIENT'S NAME: JOHNNY SHRESTHA [facility] AGE: 66 Y [address] ROOM: [address] [address] LOCATION: GICU ADMIT DATE: 07/07/2016 Consultation DISCHARGE DATE: FAMILY PHYSICIAN: LIAM DALE MD ATTENDING PHYSICIAN: LIAM DALE alcohol use. ALLERGIES: BEES. CURRENT MEDICATIONS: Please refer to the medication administration record. REVIEW OF SYSTEMS: All are negative except as mentioned above in the HPI. PHYSICAL EXAMINATION: VITAL SIGNS: Temperature 97.6, pulse 79, respirations 18, blood pressure 109/56, pulse oximetry 97% on 3 L. Height 5 feet 11 inches and weight 130.3 kg. GENERAL: The patient is alert and oriented x3. Pleasant with cares. HEENT: Head: Normocephalic, atraumatic. Oral mucosa intact. RESPIRATIONS: Even and unlabored. EXTREMITIES: +2 pedal pulses. Scant lower leg edema. Heels intact. Mild telangiectasia noted to the medial malleolus area. Extremities are warm to touch. Capillary refill intact. SKIN: Bilateral lower legs above the malleoli have thick scaly dermatitis, present on the anterior surface only, not circumferential. Gently removed scaling with soap/water and a hemostat. No ulcers noted underneath, however, erythemic linear lichenification noted. Left is worse than right. No drainage. Heels intact. The patient's dialysis is being disconnected, so I was unable to turn him to visualize his buttocks. LABORATORY DATA: White blood cell 10.7, hemoglobin 9.8, hematocrit 31.1, platelets 194. Sodium 137, potassium 5.8, chloride 102, bicarb 22, BUN 33, creatinine 5.8, glucose 57. ASSESSMENT AND PLAN: Again, this is a pleasant 66-year-old male patient who is admitted to [facility] with a bleeding arteriovenous fistula. Wound Care consult to evaluate and assess lower leg dermatitis. 1. Bilateral lower leg dermatitis. Clinical presentation is consistent with eczema, but the location is slightly odd. No other areas noted. The patient notes the "scales" have been present for 3 years and "flares" in the winter time. He has relief with emulsion therapy. He has been treated by Dermatology in the past and noticed some relief. Most likely, the dermatitis is multifactorial with possible underlying venous insufficiency and reflux disease. The patient does suffer from intermittent edema secondary to ESRD. He would benefit from PATIENT'S NAME: CHERYLBRYANJOHNNY [facility] AGE: 66 Y [address] ROOM: [address] [address] LOCATION: [facility] ADMIT DATE: 07/07/2016 Consultation DISCHARGE DATE: FAMILY PHYSICIAN: LIAM DALE MD ATTENDING PHYSICIAN: LIAM DALE compression therapy. I instructed nursing to apply Tubigrip to his bilateral lower extremities from his toes to his popliteal crease, on in the morning and off at bedtime. We will treat the inflammation with hydrocortisone 2.5% cream b.i.d. x2 weeks. We will also use emulsion therapy b.i.d. with Aloe [place] moisture barrier after application of steroid cream. The patient does not appear to have a secondary bacterial or fungal infection. Due to his neuropathy, he has limited feeling and but he is not complaining of any alarming symptoms. The patient was instructed to use Eucerin cream when he gets home. I also discussed the benefits of compression stockings. 2. Bleeding arteriovenous fistula. Vascular and Renal are following. I would like to thank Dr. Rockwell for this consultation. JOANIE NORIEGA APRN FOR MD BRANDEN RIVERA/bree /[id number] d: 07/07/168 t: 07/26/161937, CONSULTATION REPORT
--- NOTE | ~2016-07-05 | ECHO ---
Transthoracic Echocardiography Report (TTE) Demographics Patient Name JOHNNY SHRESTHA Date of Study 07/09/2016 Patient Number [id number] Visit Number [id number] Date of 1950 Room Number G6212 Gender Male Number Age 66 year(s) Referring Kumar Conrad Infrastructure Director Desiree Hollingsworth RD, Physician RVT Luli Mehta MD Physician Interpreting Jimmy Gates Complaint Supervisor Physician A Supervising Ordering Kumar Conrad MD, MD/MLP Physician Nurse Stress Cto Conclusions Summary The estimated left ventricular ejection fraction is 60%. Paradoxical septal motion Moderate concentric left ventricular hypertrophy. The interventricular septum is flattened which is consistent with right ventricular pressure / and or volume overload. Severely dilated right ventricle. Moderately reduced right ventricular function. The right atrium is moderate to severely dilated. Dilated IVC with poor inspiratory collapse consistent with elevated RA pressure. There is moderate pulmonary hypertension. The pulmonary pressure (RVSP) is 51 mmHg. Moderate-severe tricuspid regurgitation by color Doppler. Procedure Type of Study TTE procedure:Echo Limited w/o Contrast. Procedure Date Date: 07/09/2016 Start: 10:51 AM Study Location: Inpatient Portable Technical Quality: Fair due to new item. Indications:Hypotension. Appropriate Use Criteria: 9 Patient Status: STAT Rhythm: Sinus tachycardia HR: 105 bpm BP: 101/63 mmHg Allergies - Other:(Bee sting). - Other:(insect venom). M-Mode/2D Measurements LV Diastolic Dimension: 4.87 cm LV Systolic Dimension: 3.04 cm LV Septum Diastolic: 1.55 cm LV PW Diastolic: 1.44 cm RV Diastolic Dimension: 3.49 cm RV Base: 5.8 cm RV Mid: 5.4 cm RV Length: 8.07 cm TAPSE: 1.06 cm TDI-S': 11 cm/s Doppler Measurements TR Velocity:3.02 m/s TR Gradient:36.48 mmHg PV Peak Velocity: 0.93 m/s Estimated RAP:15 mmHg PV Peak Gradient: 3.46 mmHg Estimated RVSP: 51 mmHg Estimated PASP: 51.48 mmHg Findings Left Ventricle The estimated left ventricular ejection fraction is 60%. Paradoxical septal motion Moderate concentric left ventricular hypertrophy. The interventricular septum is flattened which is consistent with right ventricular pressure / and or volume overload. Right Ventricle Severely dilated right ventricle. Moderately reduced right ventricular function. Left Atrium The left atrium is moderately dilated. Right Atrium The right atrium is moderate to severely dilated. Dilated IVC with poor inspiratory collapse consistent with elevated RA pressure. Mitral Valve Mild to moderate mitral annular calcification. Tricuspid Valve There is moderate pulmonary hypertension. The pulmonary pressure (RVSP) is 51 mmHg. Moderate-severe tricuspid regurgitation by color Doppler. Pulmonic Valve Trivial pulmonic valve regurgitation. Pericardial Effusion No pericardial effusion. Signature dtt: Angelo Marquez dtd: 07/09/16 1051 Physician Self Edit
--- NOTE | ~2016-07-05 | CON ---
PATIENT'S NAME: JOHNNY SHRESTHA [facility] AGE: 66 Y [address] ROOM: [place] [address] LOCATION: GICU ADMIT DATE: 07/07/2016 Consultation DISCHARGE DATE: FAMILY PHYSICIAN: LIAM DALE MD ATTENDING PHYSICIAN: LIAM DALE DATE OF CONSULTATION: 07/13/2016 REFERRING PHYSICIAN: HODA HARRINGTON MD DATE AND TIME: 07/13/2016 at 12:55 p.m. REASON FOR CONSULTATION: Unresponsiveness. HISTORY OF PRESENT ILLNESS: The history is obtained from the chart. The patient is unable to provide any history right now. According to his chart, he has a history of IgA nephropathy leading to end-stage renal disease and has been on hemodialysis. He has had multiple problems with the bleeding fistula site; and on this hospitalization, he went to the operating room, where a new brachiocephalic fistula was made. Before the OR, the patient had severe hypotension so he was admitted to the hospital. His blood pressures have been fluctuating. He has been worked up for sepsis. He is on Coumadin for atrial fibrillation and his INR has been extremely elevated. Of note, his liver enzymes have also been elevated. His bilirubin is 2.4, biliary ALT is 47, AST is 1893, and alk phos is 75. His albumin was 4.1. We have been consulted to evaluate is there a neurological cause why the patient is not waking up. The patient received Versed at 2 mg an hour up until 07/11/2016. He has been on continuous dialysis since that time also. PAST MEDICAL HISTORY: Significant for: 1. End-stage renal disease, on hemodialysis. 2. IgA nephropathy. 3. Morbid obesity. 4. Secondary hyperparathyroidism. 5. Pwfajw-cz-crkdnix disease. 6. Hyperphosphatemia. 7. Demyelinating peripheral polyneuropathy. 8. Pulmonary hypertension. PAST SURGICAL HISTORY: Includes: 1. Left forearm primary radiocephalic AV fistula placement in 2008. PATIENT'S NAME: JOHNNY SHRESTHA [facility] AGE: 66 Y [address] ROOM: [place] [address] LOCATION: GICU ADMIT DATE: 07/07/2016 Consultation DISCHARGE DATE: FAMILY PHYSICIAN: LIAM DALE MD ATTENDING PHYSICIAN: LIAM DALE 2. Dialysis catheter placement. 3. Shoulder surgery in 2008. 4. Left carpal tunnel release in 2001. 5. Appendectomy in 1963. 6. Multiple fistulogram's of the fistula by Dr. Harrington. SOCIAL HISTORY: This patient is and lives in [place], [place]. He has a pack history of 40 pack years and quit smoking 13 years ago. 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 He has an occasional alcoholic drink. ALLERGIES: SULFA. HE IS ALSO INTOLERANT TO IVON INHIBITORS INCLUDING LISINOPRIL, WHICH CAUSES A DRY COUGH. MEDICATIONS: Medications are on the MAR and reviewed by me. REVIEW OF SYSTEMS: Due to the patient's condition, we are unable to review the systems with the patient. PHYSICAL EXAMINATION: VITAL SIGNS: Temperature is 98.2, per esophageal probe, pulse is 88, respirations 21, blood pressure 99/62, and SpO2 is 100% on 40% on the vent. His weight is 274 pounds. GENERAL: The patient is lying in bed intubated. He is moving his extremities spontaneously, but does not follow commands or open his eyes. HEENT: Head is normocephalic and atraumatic. CHEST: Clear to auscultation bilaterally. HEART: S1 and S2 without murmur, rub, or gallop. MUSCULOSKELETAL: He is moving all extremities spontaneously. NEUROLOGICAL: The patient does not follow any commands. He does not open his eyes; however, when I try to look at his pupils he resist that effort. His pupils are 3 and brisk bilaterally and midline. He is moving all of his extremities spontaneously and responds to central pain. His cough and corneal reflexes are intact. He is overbreathing the ventilator. When physical therapy cues him by touching the leg and asks him to remove it, he does do that. It appears as though as he is trying to open his eyes by raising his eyebrows when he is asked. LABORATORY DATA: A CT of the head was done today because of mental status changes that were and the CT was unremarkable. His INR is greater than 200; although, it was 47 yesterday. Blood cultures are negative to-date. Renal panel show sodium 135, PATIENT'S NAME: JOHNNY SHRESTHA [facility] AGE: 66 Y [address] ROOM: [address] [address] LOCATION: [facility] ADMIT DATE: 07/07/2016 Consultation DISCHARGE DATE: FAMILY PHYSICIAN: LIAM DALE MD ATTENDING PHYSICIAN: LIAM DALE potassium of 5.0, chloride 97, bicarb 23, BUN 30, and creatinine 5.8. Albumin is 3.6. CBC shows a white count of 12.2, hemoglobin 9.9, hematocrit 31.9, and platelets were 215. IMPRESSION: Thankfully, this patient despite his increased INR does not have a bleed present on his CT scan. He has received Versed intravenous. Versed can dialyze out per HD; however, there is a study that supports midazolam is not dialyzed out using continuous venovenous hemodialysis. This may suggest the patient needs more time to metabolize the Versed. His and the nurse of today note that his assessment this afternoon was better than his assessment this morning. I would recommend serial evaluation of his neurological status. We would consider re-CT as the status worsens markedly to rule out bleed. We should expect this neurological status to improve as long as the patient remains somewhat stable. Thank you for this interesting consultation and please contact us if you have any questions. KATHRIN CURRY APRN FOR JANN BAKER MD PP/modl /[id number] d: 07/13/16 2338 t: 08/04/16 1401, CONSULTATION REPORT
--- NOTE | ~2016-07-05 | OR ---
PATIENT'S NAME: JOHNNY SHRESTHA [facility] AGE: 66 Y [address] ROOM: [place] [address] LOCATION: GICU ADMIT DATE: 07/07/2016 OR/Procedure Report DISCHARGE DATE: FAMILY PHYSICIAN: LIAM DALE MD ATTENDING PHYSICIAN: LIAM DALE SURGEON: Nancy Marquez MD HOME SECURITY ALARM INSTALLER: DATE OF PROCEDURE: 07/09/2016 PROCEDURE PERFORMED: Synchronized cardioversion. INDICATIONS FOR SURGERY: The patient is a critically ill gentleman in the Intensive Care Unit, intubated and sedated. He has respiratory failure and chronic end-stage renal disease. He has had recurrent atrial flutter. In May, he was placed on dronedarone replacing propafenone. There was a plan for an outpatient cardioversion, which did not happen. The patient has been borderline hypotensive requiring Fly-Synephrine. He has periods of atrial flutter WITH 2:1 CONDUCTION. It was felt by all that he would benefit from sabianist of sinus rhythm. He has been supra therapeutically anticoagulated, so that it was not a concern. He was already sedated and intubated. Consent was obtained from his . The patient had already previous cardioversions in March 2014 and April 2014. DESCRIPTION OF OPERATION: I positioned patches in anterior-posterior, and delivered a single synchronized 200-joule shock, and he promptly converted from atrial flutter to sinus tachycardia with low-amplitude P-waves. CONCLUSION: Successful cardioversion from atrial flutter to sinus rhythm. NANCY MARQUEZ MD PE/modl /[id number] d: 07/09/162005 t: 07/14/16 175, OPERATIVE SUMMARY
--- NOTE | ~2016-07-05 | DS ---
PATIENT'S NAME: JOHNNY SHRESTHA [facility] AGE: 66 Y [address] ROOM: [place] [address] LOCATION: [facility] ADMIT DATE: 07/07/2016 Discharge Summary DISCHARGE DATE: 07/24/2016 FAMILY PHYSICIAN: Jan Heath MD ATTENDING PHYSICIAN: Jan Heath SUMMARY DATE OF : 07/24/2016. TIME OF : 06:13 a.m. FINAL DIAGNOSES: 1. Bleeding arteriovenous fistula, status post ligation. 2. Hypotension, likely secondary to cor pulmonale. 3. Cor pulmonale. 4. Severe right-sided heart failure. 5. Shock liver. 6. Jaundice. 7. Early cirrhosis. 8. Atrial fibrillation. 9. History of IgA nephropathy. 10. End-stage renal disease, on hemodialysis. 11. Leukocytosis. 12. Chronic back pain. 13. Acute liver failure likely secondary to right heart failure. 14. Comfort cares. CONSULTATIONS: 1. Vascular Surgery, Dr. Harrington. 2. GI, Dr. Amin. 3. Critical Care, Dr. Thomas and Dr. Stinson. 4. Neurology, Dr. Richards. 5. Cardiology, Dr. Marquez and Dr. Rizzo and Dr. Castro. 6. Infectious Disease, Dr. Gallagher. 7. Nephrology, Dr. Pina. PROCEDURES: 1. Several arterial lines placement. 2. Left forearm fistula ligation. REASON FOR ADMISSION: This is a 66-year-old male with recent repeated admissions. The patient presented with bleeding from his left arm from his fistula site. He was admitted by Dr. Heath. Please see his admission H and P for further details. PATIENT'S NAME: JOHNNY SHRESTHA [facility] AGE: 66 Y [address] ROOM: [address] [address] LOCATION: [facility] ADMIT DATE: 07/07/2016 Discharge Summary DISCHARGE DATE: 07/24/2016 FAMILY PHYSICIAN: Jan Heath MD ATTENDING PHYSICIAN: Jan Heath DIAGNOSTIC STUDIES: A transthoracic echocardiogram was done, that showed ejection fraction of 55% with paradoxical septal motion, moderate concentric left ventricular hypertrophy noted. interventricular septum pattern consistent with right ventricular pressure and volume overload, moderately reduced right ventricular function noted, severely dilated right ventricle noted, left atrium moderately dilated, right atrium severely dilated, moderate mitral valve stenosis noted, [id number] tricuspid regurgitation noted, severe pulmonary hypertension with RVSP 74 mmHg noted. Repeat transthoracic echocardiogram was done and showed ejection fraction of 60% with similar features as noted above. On 07/13/2016, repeat echocardiogram showed features as above. Serial ABGs were done since the patient was intubated. Lactate was 1.1 on admission, peaked to 2.5 on 07/09/2016 and to 4.16 and to 3.7 on the day of . Serial Accu-Cheks were done and were in the range of 80 to 216. Ammonia level 74 on admission, subsequently was 29. ProBNP 32,991, subsequently was 23,900. Cardiac enzymes were done less than 0.04 on admission, subsequently was 0.059 and were trending down. Serial CBCs were done. White count on admission was 8.3; white count peaked to 25,000 on 07/09/2016; when the patient got intubated, white count normalized to 9.7 on 07/15/2016; white count then started to rise and was 37.1 on 07/20/2016; on the day of , white count was 23.3. Hemoglobin 9.8 on admission, on the day of was 10.6. Platelet counts were within normal range most of the hospitalization. Serial BMPs were done. Electrolytes were within normal range. The patient was getting hemodialysis. His creatinine was 4.6 on the day of . Liver function tests were elevated during this admission. The patient's liver function tests were not checked on admission. His AST was 1893 on 07/09/2016, with an ALT of 347, alkaline phosphatase 75, and total bilirubin of 2.4. Liver enzymes then trended down. Liver enzymes normalized. AST was 103, ALT 50 on day of , total bilirubin level started to rise and was 22.1 on the day of . Phos levels were within normal range. Magnesium 2.7. INR 3.99 on the day of , PTT 60, PT 42.5. The patient was on Coumadin at the time of admission. His INR was supratherapeutic at 6.5. Coumadin was stopped, INR trended down and then subsequently started to rise secondary to liver failure. The patient was on vancomycin and random vancomycin level were done during this admission. Procalcitonin level 1.81 on 07/20/2016. Procalcitonin level was 2.28 on 07/08/2016, it was 0.15 on admission. D-dimer was 4.16 on admission. Anti-HBs was 20.9. HBs antigen screen nonreactive. Chest x-ray was done on admission for shortness of breath and showed enlarged cardiac silhouette with right-sided dialysis catheter. Interstitial opacities in both lungs were noted. Small right pleural fluid collection with no evidence of pneumothorax noted. PATIENT'S NAME: JOHNNY SHRESTHA [facility] AGE: 66 Y [address] ROOM: [address] [address] LOCATION: [facility] ADMIT DATE: 07/07/2016 Discharge Summary DISCHARGE DATE: 07/24/2016 FAMILY PHYSICIAN: Jan Heath MD ATTENDING PHYSICIAN: Jan Heath CT head was done for altered mental status on 07/09/2016, found to be unremarkable. Ultrasound of the abdomen was done on 07/09/2016 for elevated liver enzymes and showed atrophic kidneys bilaterally. No evidence of cholelithiasis or biliary ductal dilatation was noted. The patient had repeat chest x-rays during the course of this admission since he was intubated and did not show any worsening. CT head was done on 07/12/2016 and showed no acute intracranial abnormality. CT chest, abdomen, and pelvis without contrast was done for elevated white blood cell count and showed bilateral lower lung consolidations, small effusion, cardiomegaly with enlarged central pulmonary arteries, probably chronic pulmonary hypertension was noted. Liver morphology suggested early cirrhosis with small ascites. No biliary dilatation was noted. Atrophic kidneys noted bilaterally. The patient complained of back pain, and CT of T and L spine was done that showed no acute or suspicious T-spine or L-spine lesion. The patient had constipation. Chronic consolidation of right lower lobe with adjacent effusion was noted. Mass-like opacity in the posterior right lower lobe probably an area of rounded atelectasis was noted. The patient had a CT chest per PE protocol for dyspnea and elevated D-dimer, that showed no PE. Cardiac enlargement and vascular congestion noted. Patchy areas of parenchymal opacity noted bilaterally. Small right pleural effusion noted. Worsening in pulmonary appearance since prior imaging was noted. On the day of , the patient was complaining of abdominal pain, and the patient underwent a CT abdomen with contrast that showed mild dilatation of the small bowel loops with large volume of gas and fecal material extending to the rectum. No transition point between distended and nondistended bowel was identified. appearance likely reflecting nonobstructive adynamic ileus. Fecal impaction also could have contributed, partial distal small-bowel obstruction remains a differential consideration. Small volume of free fluid in the abdomen and pelvis noted. Atrophic changes of the kidneys and vascular calcification noted. Patchy bibasilar pulmonary parenchymal opacity consistent with infiltrate and atelectasis with pleural thickening noted. Pleural calcifications noticed. Small volume of pleural fluid in the lower left and right hemothorax noted. Cardiac enlargement detected. Hiatal hernia with evidence of gastroesophageal reflux was noted. PATIENT'S NAME: JOHNNY SHRESTHA [facility] AGE: 66 Y [address] ROOM: [place] [address] LOCATION: [facility] ADMIT DATE: 07/07/2016 Discharge Summary DISCHARGE DATE: 07/24/2016 FAMILY PHYSICIAN: Jan Heath MD ATTENDING PHYSICIAN: Jan Heath CT head with and without contrast was done on the day of and showed no acute hemorrhage or midline shift. No enhancing mass identified. Generalized atrophic changes were noted. Partial opacification of the left mastoid air cells, likely reflecting left mastoiditis noted. Chest x-ray was done on the day of for NG placement and showed NG in place. Blood cultures were done on admission and were negative. BAL showed Lian albicans. Occult blood stool positive blood cultures were later repeated and were negative. HOSPITAL COURSE: This was a 66-year-old male with a history of repeated admissions to [facility]. The patient had a history of IgA nephropathy and end-stage renal disease. He recently had a fistula placed by Dr. Harrington. The patient has had repeated admissions to [facility]. He presented with bleeding left arm fistula. Dr. Harrington was consulted. The patient underwent left arm fistula ligation. After the surgery, the patient became hypotensive and was admitted to the ICU. Hospitalist team was then consulted. Initially, his liver enzymes were not checked. The patient remained hypotensive. He was placed on Fly. Critical Care, Dr. Thomas, was consulted about [address] Rockwell. Liver function tests showed elevated liver enzymes with hyperbilirubinemia suggestive of shock liver. The patient was thought to be in DIC at that point of time. He was placed on broad-spectrum antibiotic then included vancomycin. The patient's INR was supratherapeutic on admission. Coumadin was stopped. His INR remained elevated throughout the course of this hospitalization. The patient was never able to be weaned off Fly. He received broad-spectrum antibiotics and was also on Fly. Sepsis workup was negative. The patient's white count was elevated. He then started having altered mental status. CT head showed no acute intracranial abnormality. The patient was then intubated for airway protection at that point of time. Subsequent to airway protection, his white count normalized, his shock liver normalized, but he started having increased bilirubin levels. The patient's jaundice and increased bilirubin level were thought to be secondary to right heart failure and hepatic congestion. Dr. Amin was consulted. The patient got extubated. His white count started to rise subsequently. His bilirubin level then kept on rising. Dr. Amin thought that this was likely secondary to hepatic congestion. Sepsis workup remained negative. The patient had blood in his bowel movements and underwent a colonoscopy. No active bleeding site was identified. The patient still remained hypotensive. Cardiology was consulted. Dr. Rizzo was then consulted. The patient was placed on digoxin for elevated heart rate. He was PATIENT'S NAME: JOHNNY SHRESTHA [facility] AGE: 66 Y [address] ROOM: [place] [address] LOCATION: [facility] ADMIT DATE: 07/07/2016 Discharge Summary DISCHARGE DATE: 07/24/2016 FAMILY PHYSICIAN: Jan Heath MD ATTENDING PHYSICIAN: Jan Heath also placed on dobutamine but dropped his blood pressure with dobutamine. He was then placed off and on on Fly-Synephrine and Levophed. The patient was never off vasopressors. His hypotension was thought to be secondary to severe right heart failure. No further recommendations from Cardiology were received. On the day of , the patient complained of abdominal pain. CT abdomen was done and findings are as above. He was placed on epinephrine and vasopressin, and we were still not able to maintain his blood pressure. Dr. Stinson then was consulted. He received an arterial line at that point of time. was present at the bedside. She recommended comfort cares for the patient. The patient, however, was not agreeable. At about 4 in the morning, Dr. Jose was called again, and the patient wanted to be made comfortable. He was placed on comfort care pathway. Family was at bedside at the time of . The patient went bradycardic and then had asystole. He was DNR/DNI at that point of time. As per reviewed records, [facility] was notified of the , but the patient was ruled out for organ, tissue donation. Family was notified by Dr. Jose, and they were present at the bedside. Autopsy was not done based on family's wishes. RONNY ZAYAS MD MT/bree /[id number] d: 07/25/16 0344 t: 08/08/16 1818, DISCHARGE SUMMARY
--- NOTE | ~2016-07-05 | ECHO ---
Transthoracic Echocardiography Report (TTE) Demographics Patient Name JOHNNY SHRESTHA Date of Study 07/13/2016 Patient Number [id number] Visit Number [id number] Date of 1950 Room Number G6212 Accession Number [id number] Gender Male Age 66 year(s) Referring Kumar Conrad Project Economist Cheikh Chan MD Physician Interpreting Matthew Castaneda MD Pyrotechnic Assembler Physician Supervising Ordering Physician Alecia Brasher MD, MD/P Nurse Stress Reporting Manager Conclusions Contractility Score Summary Normal Left Ventricular contractility was noted. Summary The estimated left ventricular ejection fraction is 50%. Mild concentric left ventricular hypertrophy. Diastolic assessment reveals Grade III restrictive diastolic dysfunction. The interventricular septum is flattened which is consistent with right ventricular pressure / and or volume overload. Paradoxical septal motion consistent with right ventricle pressure and/or volume overload . Moderately reduced right ventricular function. Moderately dilated right ventricle. The left atrium is mildly dilated by LA volume index measurement. The right atrium is moderate to severely dilated. IVC measures 2.64 cm with no inspiratory collapse. Dilated IVC with poor inspiratory collapse consistent with elevated RA pressure. Moderate to severe mitral annular calcification. Moderate mitral valve stenosis. The mean gradient is 7 mmHg. Severe tricuspid regurgitation by color Doppler. There is moderate pulmonary hypertension. The pulmonary pressure (RVSP) is 80 mmHg. Procedure Type of Study TTE procedure:2D Echocardiogram, M-Mode, Doppler , Color Doppler. Procedure Date Date: 07/13/2016 Start: 07:05 AM Study Location: Inpatient Portable Technical Quality: Adequate visualization Indications:Pulmonary hypertension. Appropriate Use Criteria: 9 Patient Status: Routine HR: 87 bpm BP: 99/62 mmHg Allergies - Other:(Bee sting). - Other:(insect venom). M-Mode/2D Measurements LV Diastolic Dimension: 4.94 cm LV Systolic Dimension: 3.65 cm LV Septum Diastolic: 1.22 cm LV PW Diastolic: 1.13 cm Cardiac Output: 6.2 l/min LA Dimension: 4.8 cm EF Estimated: 50 % LVOT: 2 cm LVOT VTI: 22.7 cm RV Base: 4.95 cm LV Stroke volume: 71.28 ml RV Length: 8.2 cm TAPSE: 1.27 cm TDI-S': 6.47 cm/s Doppler Measurements AV Peak Velocity: 1.55 m/s MV Peak E-Wave: 1.8 m/s AV Peak Gradient: 9.61 mmHg MV Peak A-Wave: 1.38 m/s AV Mean Gradient: 6 mmHg MV E/A Ratio: 1.3 LVOT Peak Velocity: 1.4 m/s MV P1/2t: 80 msec TR Velocity:4.03 m/s MV Deceleration Time: 257 msec Estimated RAP:15 mmHg PV Peak Velocity: 1.33 m/s Estimated RVSP: 80 mmHg PV Peak Gradient: 7.08 mmHg E' Septal Velocity: 0.06 m/s Estimated PASP: 79.96 mmHg E' Lateral Velocity: 0.1 m/s A' Septal Velocity: 0.09 m/s A' Lateral Velocity: 0.12 m/s Findings Left Ventricle The left ventricle is normal in size . Mild concentric left ventricular hypertrophy. Diastolic assessment reveals Grade III restrictive diastolic dysfunction. The interventricular septum is flattened which is consistent with right ventricular pressure / and or volume overload. Paradoxical septal motion consistent with right ventricle pressure and/or volume overload . Right Ventricle Moderately reduced right ventricular function. Moderately dilated right ventricle. Left Atrium The left atrium is severely dilated. Right Atrium The right atrium is moderate to severely dilated. IVC measures 2.64 cm with no inspiratory collapse. Dilated IVC with poor inspiratory collapse consistent with elevated RA pressure. Mitral Valve Trivial mitral regurgitation by color Doppler. Moderate to severe mitral annular calcification. Moderate to severe calcification of the mitral valve. Moderate mitral valve stenosis. The mean gradient is 7 mmHg. Mild thickening of the mitral valve leaflets. Aortic Valve The aortic valve is mildly sclerotic. Tricuspid Valve Severe tricuspid regurgitation by color Doppler. There is severe pulmonary hypertension. The pulmonary pressure (RVSP) is 80 mmHg. Pulmonic Valve Normal pulmonic valve structure and function. Pericardial Effusion No evidence of pericardial effusion. Miscellaneous Visualized portions of the aortic root and ascending aorta appear normal in size. Pleural Effusion No evidence of pleural effusion. Contractility Score LV regional wall motion:(0-Non visualized 1-Normal 2-Hypokinesis 3-Akinesis 4-Dyskinesis 5-Aneurysm) Signature dtt: Leonel Castro (cardio) dtd: 07/13/16 0705 Physician Self Edit
--- NOTE | ~2016-07-05 | ECHO ---
Transthoracic Echocardiography Report (TTE) Demographics Patient Name JOHNNY SHRESTHA Date of Study 07/07/2016 Patient Number [id number] Visit Number [id number] Date of 1950 Room Number G6212 Gender Male Number Age 66 year(s) Referring Kumar Conrad Computer Information Systems Professor Cheikh Mendenhall Physician Physician Interpreting Shanice Fuchs Title I Assistant Physician Supervising Ordering Sherice Martinez MD/DONNIE Physician Nurse Stress Fleece Tier Conclusions Summary Technically difficult study with suboptimal images The estimated left ventricular ejection fraction is 55%. Paradoxical septal motion Moderate concentric left ventricular hypertrophy. The interventricular septum is flattened which is consistent with right ventricular pressure / and or volume overload. Moderately reduced right ventricular function. Severely dilated right ventricle. The left atrium is moderately dilated . The right atrium is severely dilated. Moderate mitral valve stenosis. The mean gradient is 8 mmHg. Echo density noted on mitral valve possibly due to calcification (seen on previous echo done on 05/31/2016 as well) Moderate-severe tricuspid regurgitation by color Doppler. There is severe pulmonary hypertension. The estimated pulmonary pressure (RVSP) is 74 mmHg. Clinical correlation is recommended Procedure Type of Study TTE procedure:2D Echocardiogram, M-Mode, Doppler , Color Doppler. Procedure Date Date: 07/07/2016 Start: 07:49 AM Study Location: Inpatient Portable Technical Quality: Fair due to body habitus. Indications:Hypotension. Appropriate Use Criteria: 9 Patient Status: Routine HR: 91 bpm BP: 103/56 mmHg Allergies - Other:(Bee sting). - Other:(insect venom). M-Mode/2D Measurements LV Diastolic Dimension: 5.19 cm LV Systolic Dimension: 3.15 cm LV Septum Diastolic: 1.31 cm LV PW Diastolic: 1.33 cm AO Root Dimension: 3.1 cm Cardiac Output: 5.61 l/min LA Dimension: 4.8 cm EF Estimated: 45 % LVOT: 2.1 cm LVOT VTI: 17.8 cm RV Base: 4.55 cm LV Stroke volume: 61.62 ml RV Length: 8.38 cm TAPSE: 0.86 cm TDI-S': 5.48 cm/s Doppler Measurements AV Peak Velocity: 1.48 m/s MV Peak E-Wave: 1.93 m/s AV Peak Gradient: 8.76 mmHg AV Mean Gradient: 6 mmHg MV P1/2t: 75 msec LVOT Peak Velocity: 1.08 m/s MV Mean Gradient: 8 mmHg TR Velocity:3.91 m/s PV Peak Velocity: 1.19 m/s TR Gradient:61.15 mmHg PV Peak Gradient: 5.66 mmHg Estimated RAP:8 mmHg Estimated PASP: 69.15 mmHg Estimated RVSP: 69 mmHg E' Septal Velocity: 0.07 m/s E' Lateral Velocity: 0.09 m/s Findings Left Ventricle The left ventricle is normal in size . Moderate concentric left ventricular hypertrophy. Diastolic function indeterminate due to patient's arrhythmia. The interventricular septum is flattened which is consistent with right ventricular pressure / and or volume overload. Right Ventricle Moderately reduced right ventricular function. Severely dilated right ventricle. Left Atrium The left atrium is moderately dilated . Right Atrium The right atrium is severely dilated. Mitral Valve Trivial mitral regurgitation by color Doppler. Moderate to severe mitral annular calcification. Moderate to severe calcification of the mitral valve. Echo density noted on mitral valve possibly due to calcification (seen on previous echo done on 05/31/2016 as well) Moderate mitral valve stenosis. The mean gradient is 8 mmHg. Aortic Valve The aortic valve is mildly sclerotic. Tricuspid Valve Moderate tricuspid regurgitation by color Doppler. There is severe pulmonary hypertension. The pulmonary pressure (RVSP) is 74 mmHg. Pulmonic Valve Normal pulmonic valve structure and function. Pericardial Effusion No evidence of pericardial effusion. Miscellaneous Visualized portions of the aortic root and ascending aorta appear normal in size. Suboptimal subcostal window to evaluate the IVC and interatrial septum. Pleural Effusion No evidence of pleural effusion. Contractility Score LV regional wall motion:(0-Non visualized 1-Normal 2-Hypokinesis 3-Akinesis 4-Dyskinesis 5-Aneurysm) Signature dtt: YANCI MENDEZ dtd: 07/07/16 0749 Physician Self Edit
--- NOTE | ~2016-07-05 | CON ---
PATIENT'S NAME: JOHNNY SHRESTHA [facility] AGE: 66 Y [address] ROOM: G6212 [place], [place] [address] LOCATION: GICU ADMIT DATE: 07/07/2016 Consultation DISCHARGE DATE: FAMILY PHYSICIAN: LIAM HEATH MD ATTENDING PHYSICIAN: LIAM HEATH REFERRING PHYSICIAN: HODA HARRINGTON MD REFERRING PHYSICIANS: 1. Liam Heath M.D. 2. Dr. Harrington. REASON FOR CONSULT: Hypotension. HISTORY OF PRESENT ILLNESS: This is a 66-year-old gentleman, well known to Dr. Vinson with history of paroxysmal atrial fibrillation. He was seen in the clinic on June 07, 2016, for preop risk evaluation prior to a fistula surgery. At that time, he was off long-term anticoagulation, but he was also in atrial fibrillation. Therefore, his Multaq was stopped. He was having some trouble with his fistula while awaiting the surgery and had issues with bleeding. Therefore, he was admitted to the hospital the day prior to his scheduled surgery. He now is post fistula and has been placed in ICU on pressors because he is hypotensive. During his surgery, he did have uncontrolled epistaxis, which was cauterized by Dr. Ritchie. The patient admits that he has been having trouble with epistaxis at home. Currently, he states he is feeling much better now that his blood pressures are back up. He was very lightheaded and nauseated when his blood pressures were low. He states that his last dialysis was yesterday, they are using a tunnel catheter currently. He is not experiencing any exertional chest pain. He denies shortness of breath, although he has not been up walking much due to his hypotension. He does carry a history of severe pulmonary hypertension and has been treated for obstructive sleep apnea. In May, he reports that he had not been wearing the CPAP and was encouraged to resume that at the current settings. PAST MEDICAL HISTORY: 1. Atrial fibrillation. He did have DC cardioversion in April 2014, now is in persistent atrial fibrillation. 2. Essential hypertension. 3. Hyperlipidemia. 4. Hypotension. 5. Nonobstructive coronary artery disease per left heart catheterization in September 2013. 6. Obstructive sleep apnea. 7. He is on high-risk medications with Multaq. 8. Long-term anticoagulation, on warfarin. PATIENT'S NAME: JOHNNY SHRESTHA [facility] AGE: 66 Y [address] ROOM: G6212 [place] [address] LOCATION: [facility] ADMIT DATE: 07/07/2016 Consultation DISCHARGE DATE: FAMILY PHYSICIAN: LIAM HEATH MD ATTENDING PHYSICIAN: LIAM HEATH 9. Hypotension with dialysis. 10. 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 11. Anemia of chronic diseases. 12. History of gastric ulcers. 13. Obesity. PAST SURGICAL HISTORY: 1. Appendectomy that was perforated in 1963. 2. Left carpal tunnel surgery in 2001. 3. Shoulder surgery in October 2007. 4. Peripheral dialysis catheter placement. 5. 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 6. Left forearm primary radiocephalic AV fistula placement in October 2008. 7. EGD with biopsy in 2010. 8. Left heart catheterization on 10/01/2013, nonobstructive. 9. Cardioversion, 04/08/2014 and April 2014. 10. Right wrist arthrotomy and synovectomy in 2013. ALLERGIES: IVON INHIBITORS CAUSE COUGH. HOME MEDICATIONS: 1. Acetaminophen 650 mg every 6 hours as needed. 2. Aspirin 81 mg once a day. 3. Bactroban 2% cream, apply to affected areas. 4. mg every meal. 5. MiraLax. 6. Multaq 400 mg twice a day, which had been stopped and now restarted. 7. Nephron FA 1 tablet every day. 8. Niacin 500 mg 1 tablet every day. 9. Renvela 800 mg 5 tablets daily with meals. 10. Sensipar 30 mg 1 capsule every other day. 11. TriCor 145 mg daily. 12. Warfarin 2 mg daily. FAMILY HISTORY: Father is , he had prostate cancer. Mother is , had breast cancer. Maternal grandmother had hypertension and OR. He has 2 brothers and 2 sisters, who are healthy. He does not have any children. SOCIAL HISTORY: He is a former smoker. He smoked 1/2 pack of cigarettes a day for 35 years. He quit in 2005. He is . He has been hospitalized for pneumonia in PATIENT'S NAME: JOHNNY SHRESTHA [facility] AGE: 66 Y [address] ROOM: G62[address] [place], [place] [address] LOCATION: GICU ADMIT DATE: 07/07/2016 Consultation DISCHARGE DATE: FAMILY PHYSICIAN: LIAM HEATH MD ATTENDING PHYSICIAN: LIAM HEATH May 2015. REVIEW OF SYSTEMS: GENERAL: He complains of fatigue. HEAD: He has no history of headache. EYES: He wears corrective lenses. EARS: No problems with hearing. NOSE: No epistaxis or rhinorrhea. MOUTH: No gingival bleeding. THROAT: Denies sore throat, hoarseness, or difficulty swallowing. PULMONARY: He does have problems with cough, on IVON inhibitor. He also has severe pulmonary hypertension with obstructive sleep apnea. GI: Negative for nausea, vomiting, or diarrhea. No melena or hematochezia. : Negative for urinary frequency. He does not make any urine. He is on dialysis 3 times a week. ENDOCRINE: He denies hyper or hypoglycemia or hypothyroidism. NEUROLOGIC: He denies problems with TIA or CVA symptomatology. DERMATOLOGIC: He has rash found in lower extremities. HEMATOLOGIC: He has anemia of chronic disease. MUSCULOSKELETAL: Denies arthralgias. PHYSICAL EXAMINATION: VITAL SIGNS: His blood pressure today was 117/64 to 94/48. He is on Fly- Synephrine . His heart rate is 80 to 93. He is in atrial fibrillation. Saturations are 96% on 2 L of oxygen. His weight is up approximately 4 kg from admission weight. GENERAL: He is alert and oriented. Answers questions appropriately. SKIN: Warm, dry, and pink. NECK: Soft and supple. No lymphadenopathy. No thyromegaly. JVD is flat. LUNGS: Lung sounds were clear. CV: Very distant, but irregular. Telemetry showing atrial fibrillation. ABDOMEN: Soft. His new fistula in the left arm has a faint thrill. EXTREMITIES: No peripheral edema. No clubbing. No cyanosis. Hemoglobin is 9.8 and INR is 4.0. ASSESSMENT: 1. Hypotension. His hemoglobin is pretty good for him. His weight is up a little bit. We will discuss further recommendations with Dr. Vinson. 2. Atrial fibrillation, now persistent. He is back on Multaq. We will discuss the need to continue that since he had been off long-term anticoagulation. We will check an EKG. The assessment and plan, physical exam, and further recommendations will be forthcoming once Dr. Vinson sees the patient. PATIENT'S NAME: JOHNNY SHRESTHA [facility] AGE: 66 Y [address] ROOM: [place] [address] LOCATION: [facility] ADMIT DATE: 07/07/2016 Consultation DISCHARGE DATE: FAMILY PHYSICIAN: LIAM HEATH MD ATTENDING PHYSICIAN: LIAM HEATH AROLDO CALHOUN APRN FOR RITU VINSON MD TGP/modl /[id number] d: 07/08/161930 t: 07/11/16 1833, CONSULTATION REPORT
[~2016-07-05 02:46] MED LIST changes: +ASPIRIN LO-DOSE81 MG PO; +EPIPEN 2-P0.3 MG/0.3 SUB-Q
[2016-07-05 04:22] LABS: BASOPHIL # 0.1 K/uL (0.0-0.2); BASOPHIL % 0.6 %; EOSINOPHIL # 0.4 K/uL (0.0-0.5); EOSINOPHIL % 4.8 %; HEMATOCRIT 30.8 % (37.0-53.0); HEMOGLOBIN 9.8 g/dL (11.0-16.0); IMMATURE GRANULOCYTE % 0.4 %; LYMPHOCYTE # 0.9 K/uL (0.8-4.0); LYMPHOCYTE % 10.6 %; MCH 35.6 pg (27.0-34.0); MCHC 31.8 gm/dL (32.0-36.5); MONOCYTE # 0.6 K/uL (0.0-1.0); MPV 9.8 fl (9.4-12.4); NEUTROPHIL # (ANC) 6.3 K/uL (1.4-9.0); NEUTROPHIL % 76.6 %; NRBC % 0 /100WBC (0-0.00); PLATELET COUNT 191 K/uL (150-450); RBC 2.75 M/uL (3.50-5.50); RDW-CV 17.3 % (11.9-14.6); WBC 8.3 K/uL (4.0-11.0)
[2016-07-05 04:34] LABS: PTT 37 SECONDS (25-32)
[2016-07-05 04:35] LABS: INR - (THERAPEUTIC) 1.5 (0.9-1.1); PROTIME 15.8 SECONDS (9.6-11.1)
[2016-07-05 04:36] LABS: ALBUMIN 2.8 gm/dL (3.5-5.0); ANION GAP 16.1 (10.0-19.0); CALCIUM 8.7 mg/dL (8.5-10.5); PHOSPHORUS 4.8 mg/dL (2.5-4.9); POTASSIUM 5.1 mMol/L (3.7-5.1)
[2016-07-05 04:37] LABS: CREATININE 7.3 mg/dL (0.6-1.3)
--- NOTE | 2016-07-05 06:33 | NUR ---
Patient admitted from ER to PCU at 0520 for bleeding left arm fistula. He lives at home in [place] with his . Per patient, he was getting ready for dialysis this morning and he coughing which caused the scab on his left arm fistula to come off. It began to squirt out blood and he tried to take care of it at home but it would not stop bleeding. He called EMS and was brought to ED. Tourniquet was applied and manual pressure held for 20 minutes. Surgicell, gauze, tegaderm, and coban applied. Patient arrived to floor with dressing C/D/I. Fistula has good bruit and thrill. Vital signs were stable on arrival. Patient denied any pain. Alert/oriented x3. Dr. Heath notified of patient arrival and placed on Dr. Harrington's census.
--- NOTE | 2016-07-05 11:30 | NUR ---
Introduced self and role of care management to patient. Patient lives in [place] with his . He plans home when ready for discharge. He hopes to go home tomorrow. He hopes the procedure on his arm today works. He says he has been having trouble for awhile and it is frustrating. He does OP dialysis at [facility] in [place]. Will follow.
--- NOTE | 2016-07-05 18:21 | NUR ---
Significant Event: A/O. VSS on RA. Denies pain. NO bleeding issues with L) fistula. Up with 1 assist. Plan for fistulagram with Dr Harrington tomorrow. permits signed Follow up:
[2016-07-06 04:38] LABS: ALBUMIN 2.6 gm/dL (3.5-5.0); ANION GAP 11.7 (10.0-19.0); CALCIUM 8.3 mg/dL (8.5-10.5); PHOSPHORUS 3.9 mg/dL (2.5-4.9); POTASSIUM 4.7 mMol/L (3.7-5.1)
[2016-07-06 04:39] LABS: CREATININE 4.3 mg/dL (0.6-1.3)
--- NOTE | 2016-07-06 05:03 | NUR ---
Significant Event: Patient alert and oriented x 3. Denies pain and shortness of breath throughout shift. Wears Bipap at home but did not bring with to hospital. L arm fistula continues to remain C/D/I. No signs of bleeding noted. Pre proceedure checklist started, Patient has been NPO since Midnight. Afebrile. Lungs clear. SBP mid 80's to mid 90's, MAP >65. Follow up: Continue to monitor per POC, proceedure today with Dr Harrington.
[2016-07-06 14:56] LABS: BASOPHIL # 0.1 K/uL (0.0-0.2); BASOPHIL % 0.7 %; EOSINOPHIL # 0.4 K/uL (0.0-0.5); EOSINOPHIL % 5.7 %; HEMATOCRIT 29.6 % (37.0-53.0); HEMOGLOBIN 9.4 g/dL (11.0-16.0); IMMATURE GRANULOCYTE # 0.1 K/uL (0.0-0.3); IMMATURE GRANULOCYTE % 0.9 %; LYMPHOCYTE # 0.9 K/uL (0.8-4.0); LYMPHOCYTE % 11.5 %; MCH 35.5 pg (27.0-34.0); MCHC 31.8 gm/dL (32.0-36.5); MCV 111.7 fl (83.0-98.0); MONOCYTE # 0.6 K/uL (0.0-1.0); MPV 9.8 fl (9.4-12.4); NEUTROPHIL # (ANC) 5.4 K/uL (1.4-9.0); NEUTROPHIL % 73.2 %; NRBC % 0.5 /100WBC (0-0.00); PLATELET COUNT 174 K/uL (150-450); RBC 2.65 M/uL (3.50-5.50); RDW-CV 16.9 % (11.9-14.6); WBC 7.4 K/uL (4.0-11.0)
[2016-07-06 15:23] LABS: ANION GAP 16.1 (10.0-19.0); CALCIUM 7.9 mg/dL (8.5-10.5); POTASSIUM 5.1 mMol/L (3.7-5.1)
[2016-07-06 15:28] LABS: CREATININE 4.8 mg/dL (0.6-1.3)
--- NOTE | 2016-07-06 16:40 | NUR ---
Significant Event: Patient A/O x3. VS stable, on 2L 02. Denies pain, has chronic neurapathy to bilateral lower extremities. Patient left the unit at 1005 for surgery. Patient Transferred to ICU after procedure. supportive at bedside. Follow up:
[2016-07-06 19:57] LABS: BASOPHIL # 0.1 K/uL (0.0-0.2); BASOPHIL % 0.8 %; EOSINOPHIL # 0.3 K/uL (0.0-0.5); EOSINOPHIL % 3.8 %; HEMATOCRIT 29.8 % (37.0-53.0); HEMOGLOBIN 9.4 g/dL (11.0-16.0); IMMATURE GRANULOCYTE % 0.3 %; LYMPHOCYTE # 0.9 K/uL (0.8-4.0); LYMPHOCYTE % 11.8 %; MCH 35.5 pg (27.0-34.0); MCHC 31.5 gm/dL (32.0-36.5); MCV 112.5 fl (83.0-98.0); MONOCYTE # 0.7 K/uL (0.0-1.0); MONOCYTE % 8.3 %; MPV 9.9 fl (9.4-12.4); NRBC % 0.3 /100WBC (0-0.00); PLATELET COUNT 187 K/uL (150-450); RBC 2.65 M/uL (3.50-5.50); RDW-CV 17.1 % (11.9-14.6)
[2016-07-06 20:02] LABS: ANION GAP 17.2 (10.0-19.0); BLOOD UREA NITROGEN 26 mg/dL (6-24); CALCIUM 8.4 mg/dL (8.5-10.5); CHLORIDE 103 mMol/L (96-110); CO2 22 mMol/L (22-32); CREATININE 5.1 mg/dL (0.6-1.3); ESTIMATED GFR (MDRD EQUATION) 11; POTASSIUM 5.2 mMol/L (3.7-5.1); SODIUM 137 mMol/L (135-145)
--- NOTE | 2016-07-07 05:10 | NUR ---
Significant Event: Pt is alert and orineted x3. Moves all extremties spontaneously and to command. States that he does have some chronic numbness and tingling to his feet and fingers. On 3L of O2 via NC. Pt is on a Fly gtt to keep SBP greater than 100. Dressing the the L) AC over a new fistula with good B/T. Dressing over the L) Fistula site. Art line in place with dampened wave. [address] Follow up: Dialysis in the AM
[2016-07-07 05:37] LABS: CALCIUM 8.3 mg/dL (8.5-10.5)
[2016-07-07 05:38] LABS: ANION GAP 18.8 (10.0-19.0); CREATININE 5.8 mg/dL (0.6-1.3); POTASSIUM 5.8 mMol/L (3.7-5.1)
[2016-07-07 05:40] LABS: BASOPHIL # 0.1 K/uL (0.0-0.2); BASOPHIL % 0.7 %; EOSINOPHIL # 0.3 K/uL (0.0-0.5); EOSINOPHIL % 2.8 %; HEMATOCRIT 31.1 % (37.0-53.0); HEMOGLOBIN 9.8 g/dL (11.0-16.0); IMMATURE GRANULOCYTE # 0.1 K/uL (0.0-0.3); IMMATURE GRANULOCYTE % 0.5 %; LYMPHOCYTE # 0.9 K/uL (0.8-4.0); MCHC 31.5 gm/dL (32.0-36.5); MCV 114.3 fl (83.0-98.0); MPV 9.7 fl (9.4-12.4); NEUTROPHIL # (ANC) 8.5 K/uL (1.4-9.0); NRBC % 0.2 /100WBC (0-0.00); PLATELET COUNT 194 K/uL (150-450); RBC 2.72 M/uL (3.50-5.50); WBC 10.7 K/uL (4.0-11.0)
--- NOTE | 2016-07-07 11:15 | NUR ---
Memo Casper notified due to patient's blood pressure was starting to get hypotensive since his arrival to recovery. Pennie notifed several time and was unable to locate. Dr. Hernadez came to assist the and gave new orders to give 250ml of albumin for the patient's blood pressure at this time.
[2016-07-07 12:21] LABS: INR - (THERAPEUTIC) 1.8 (0.9-1.1)
[2016-07-07 12:22] LABS: PROTIME 20.3 SECONDS (9.6-11.1)
--- NOTE | 2016-07-07 14:39 | NUR ---
Significant Event: Alert and oriented x3. Follows commands. Denies pain. Fly currently at 0.8 mcq/kg/min for sbp > 100. R) arterial line dc'd. Afebrile. Generalized edema. Renal diet ordered. Blood glucose 65 at 1110, treated and 116 at 1350, Dr. Rockwell aware. Anuric, received dialysis today 2L removed. 2L NC. Bathed this shift. Repositions self. Family at bedside. Follow up: monitor
--- NOTE | 2016-07-07 15:58 | NUR ---
i have read and reviewed the charting of Amber student nurse and agree with what she has documented
--- NOTE | 2016-07-08 05:43 | NUR ---
PT CONTINUES TO REQUIRE VASOPRESSOR SUPPORT. CURRENTLY RUNNING ZORAN-SYNEPHRINE AT 2 MCG/KG/MIN AND 25% ALBUMIN (100 ML). MD ORDER OBTAINED TO QUAD STRENGTH ZORAN. PT RESTING THROUGHOUT NIGHT. CURRENTLY UP IN CHAIR. BS PRESENT, BM X1 OF HARD STOOL THIS SHIFT. NO UOP. SKIN ASSESSMENT REMAINS UNCHANGE. FISTULA CONTINUES TO BE POSITIVE FOR FAINT B/T. RAN GENAO RN
[2016-07-08 05:50] LABS: PROTIME 47.5 SECONDS (9.6-11.1)
[2016-07-08 11:22] LABS: ALBUMIN 3.4 gm/dL (3.5-5.0); ANION GAP 22.2 (10.0-19.0); CALCIUM 8.8 mg/dL (8.5-10.5); CREATININE 4.6 mg/dL (0.6-1.3); PHOSPHORUS 5.7 mg/dL (2.5-4.9)
[2016-07-08 11:23] LABS: POTASSIUM 5.2 mMol/L (3.7-5.1)
[2016-07-08 11:26] LABS: BASOPHIL # 0.1 K/uL (0.0-0.2); BASOPHIL % 0.3 %; EOSINOPHIL # 0.1 K/uL (0.0-0.5); EOSINOPHIL % 0.5 %; HEMATOCRIT 36.4 % (37.0-53.0); HEMOGLOBIN 11.4 g/dL (11.0-16.0); IMMATURE GRANULOCYTE # 0.2 K/uL (0.0-0.3); LYMPHOCYTE # 0.7 K/uL (0.8-4.0); LYMPHOCYTE % 3.3 %; MCHC 31.3 gm/dL (32.0-36.5); MCV 114.8 fl (83.0-98.0); MONOCYTE # 1.9 K/uL (0.0-1.0); MONOCYTE % 9.6 %; MPV 10.4 fl (9.4-12.4); NEUTROPHIL # (ANC) 16.6 K/uL (1.4-9.0); NEUTROPHIL % 85.3 %; NRBC % 0.9 /100WBC (0-0.00); PLATELET COUNT 208 K/uL (150-450); RBC 3.17 M/uL (3.50-5.50); RDW-CV 17.1 % (11.9-14.6)
[2016-07-08 11:27] LABS: WBC 19.5 K/uL (4.0-11.0)
--- NOTE | 2016-07-08 13:28 | NUR ---
Significant Event: Alert and oriented x3. Up to chair today, bathed, 1 assist. Albumin 25% and NS 250 ml bolus given, sabine at 1.8 mcq/kg/min for sbp > 100. Dr. Castro consulted. Afebrile. Anuria. L) arm incision intact, open to air. R) wrist and R) AC IV intact. Renal Diet. 2-3L NC, cpap at night. Cooperative with cares. Coumadin on hold for today. Follow up: monitor.
[2016-07-09 02:21] LABS: HEMATOCRIT 32.3 % (37.0-53.0); HEMOGLOBIN 10.1 g/dL (11.0-16.0)
[2016-07-09 02:35] LABS: ANION GAP 25.4 (10.0-19.0); CREATININE 5.6 mg/dL (0.6-1.3); MAGNESIUM 2.5 mg/dL (1.3-2.6); POTASSIUM 5.4 mMol/L (3.7-5.1)
--- NOTE | 2016-07-09 07:33 | NUR ---
Significant Event: PATIENT DROWSY, BECAME IRRITABLE OVERNIGHT. UNABLE TO ANSWER ORIENTATION QUESTIONS THIS MORNING. PULLING AT MONITORING LINES/DIALYSIS CATHETER, IV'S AND BLOOD PRESSURE CUFF THIS MORNING. ATTEMPTS TO GET OUT OF BED OVERNIGHT. DOES NOT USE CALL LIGHT. STAT HEAD CT OVERNOC FOR AMS. CONTINUES ON ZORAN GTT, TITRATED TO MAX. GOAL SBP >100. 25% ALBUMIN GIVEN WITH LITTLE EFFECT. AFEBRILE. CONTINUES ON 3L PER NASAL CANNULA. PIV X2. ANURIC. NO BM. PRN COLACE GIVEN. ATIVAN X1 GIVEN XANAX X1 GIVEN. INSULIN/DEX GIVEN FOR K 5.4. Follow up: DIALYSIS!
[2016-07-09 08:51] LABS: BASOPHIL # 0.1 K/uL (0.0-0.2); BASOPHIL % 0.2 %; EOSINOPHIL % 0.2 %; HEMATOCRIT 31.9 % (37.0-53.0); HEMOGLOBIN 9.9 g/dL (11.0-16.0); IMMATURE GRANULOCYTE # 0.2 K/uL (0.0-0.3); IMMATURE GRANULOCYTE % 0.9 %; LYMPHOCYTE # 1.1 K/uL (0.8-4.0); LYMPHOCYTE % 4.2 %; MCH 35.7 pg (27.0-34.0); MCV 115.2 fl (83.0-98.0); MONOCYTE # 1.6 K/uL (0.0-1.0); MONOCYTE % 6.5 %; MPV 10.4 fl (9.4-12.4); NRBC % 1.7 /100WBC (0-0.00); PLATELET COUNT 215 K/uL (150-450); RBC 2.77 M/uL (3.50-5.50); RDW-CV 16.9 % (11.9-14.6)
[2016-07-09 09:07] LABS: ALBUMIN 3.6 gm/dL (3.5-5.0); MAGNESIUM 2.4 mg/dL (1.3-2.6); PHOSPHORUS 6.1 mg/dL (2.5-4.9)
[2016-07-09 09:17] LABS: CREATININE 5.8 mg/dL (0.6-1.3)
[2016-07-09 09:21] LABS: PROTIME > 200.0 SECONDS (9.6-11.1)
--- NOTE | 2016-07-09 10:08 | NUR ---
A - PT SCREENED D/T LOS. ESRD - ON DIALYSIS. 1-3+ EDEMA. HT: 71" WT: 292# BMI: 40.8 LABS: ACCUCHECK 65-WNL, BUN/CR 30/5.8, PHOS 6.1, WBC 25.0 MEDS: ZOSYN, BOWEL/NAUSEA, RENVELA, FOSRENOL, NEPHRON-FA, PROTONIX DIET: RENAL. INTAKE: REF-75% NEEDS (BASED ON EST NEEDS FOR DIALYSIS): 1361-5591 KCAL (30-35 KCAL/KG IBW), 94-109 G PRO (1.2-1.4 G/KG IBW), 2340 ML FLUID (1 ML/KCAL) D - INADEQUATE NUTRIENT INTAKE R/T DECREASED APPETITE AEB INTAKE RECORD. I - GOAL FOR INTAKE 50-75% BY NEXT ASSESSMENT. WILL ADD ENSURE BID TO INC NUTRIENT INTAKE. M/E - WILL MONITOR INTAKE F/U IN 3-5 DAYS.
[2016-07-09 11:17] LABS: ALBUMIN 4.1 gm/dL (3.5-5.0); TOTAL BILIRUBIN 2.4 mg/dL (0.0-1.5)
[2016-07-09 15:54] LABS: BASOPHIL % 0.2 %; EOSINOPHIL # 0.1 K/uL (0.0-0.5); EOSINOPHIL % 0.4 %; HEMATOCRIT 28.8 % (37.0-53.0); HEMOGLOBIN 9.2 g/dL (11.0-16.0); IMMATURE GRANULOCYTE # 0.2 K/uL (0.0-0.3); IMMATURE GRANULOCYTE % 0.9 %; LYMPHOCYTE # 0.6 K/uL (0.8-4.0); LYMPHOCYTE % 2.8 %; MCH 35.7 pg (27.0-34.0); MCHC 31.9 gm/dL (32.0-36.5); MCV 111.6 fl (83.0-98.0); MONOCYTE # 1.4 K/uL (0.0-1.0); MONOCYTE % 6.3 %; NEUTROPHIL # (ANC) 19.7 K/uL (1.4-9.0); NEUTROPHIL % 89.4 %; NRBC % 1.6 /100WBC (0-0.00); PLATELET COUNT 177 K/uL (150-450); RBC 2.58 M/uL (3.50-5.50)
[2016-07-09 16:02] LABS: BICARBONATE 24.8 mmol/L (18.0-23.0); PCO2 46 mmHg (35-45); PO2 87 mmHg (80-90)
[2016-07-09 16:11] LABS: PROTIME 80.3 SECONDS (9.6-11.1)
[2016-07-09 16:12] LABS: INR - (THERAPEUTIC) 6.5 (0.9-1.1)
[2016-07-09 16:18] LABS: ALBUMIN 4.1 gm/dL (3.5-5.0); ANION GAP 18.7 (10.0-19.0); CALCIUM 8.5 mg/dL (8.5-10.5); POTASSIUM 3.7 mMol/L (3.7-5.1); TOTAL BILIRUBIN 2.8 mg/dL (0.0-1.5); TOTAL PROTEIN 7.8 g/dL (6.0-8.4)
--- NOTE | 2016-07-09 16:59 | NUR ---
PT STARTED THE DAY ON 3L NC SATS 94-98%, PT WAS MORE CONFUSED AND CONTINUED TO BE HYPOTENSIVE, PT WAS ELECTIVELY INTUBATED AROUND 1310, PT WAS PRE OXYGENATED AND SEDATED, PT WAS BAB MASKED VENTILATED, GLIDESCOPE WAS USED WITH AN 8.0 ET TUBE, VOCAL CORDS WERE VISUALISED AND ET TUBE ADVANCED THROUGH TO 26CM AT PTS TEETH, ETCO2 WAS 40 POST INTUBATION AND TUBE WAS SECURED, PT WAS PLACED ON THE VENT, SXN A SMALL AMOUNT OF ROD SPUTUM, SPUTUM SAMPLE WAS ALSO SENT, WILL CONTINUE TO MONITOR UNTIL FURTHER NOTICE
[2016-07-10 05:31] LABS: BICARBONATE 23.7 mmol/L (18.0-23.0); PCO2 45 mmHg (35-45)
[2016-07-10 05:32] LABS: PO2 107 mmHg (80-90)
[2016-07-10 05:50] LABS: BASOPHIL # 0.1 K/uL (0.0-0.2); BASOPHIL % 0.4 %; EOSINOPHIL # 0.2 K/uL (0.0-0.5); EOSINOPHIL % 1.2 %; HEMATOCRIT 29.1 % (37.0-53.0); HEMOGLOBIN 9.3 g/dL (11.0-16.0); IMMATURE GRANULOCYTE # 0.1 K/uL (0.0-0.3); IMMATURE GRANULOCYTE % 0.8 %; LYMPHOCYTE # 0.9 K/uL (0.8-4.0); LYMPHOCYTE % 5.2 %; MCH 35.8 pg (27.0-34.0); MCV 111.9 fl (83.0-98.0); MONOCYTE # 1.1 K/uL (0.0-1.0); MPV 10.2 fl (9.4-12.4); NEUTROPHIL # (ANC) 15.3 K/uL (1.4-9.0); NEUTROPHIL % 86.4 %; NRBC % 2.9 /100WBC (0-0.00); PLATELET COUNT 184 K/uL (150-450); WBC 17.8 K/uL (4.0-11.0)
[2016-07-10 05:55] LABS: ALBUMIN 3.6 gm/dL (3.5-5.0); ANION GAP 18.7 (10.0-19.0); CALCIUM 9.4 mg/dL (8.5-10.5); MAGNESIUM 2.2 mg/dL (1.3-2.6); PHOSPHORUS 2.9 mg/dL (2.5-4.9); POTASSIUM 3.7 mMol/L (3.7-5.1); TOTAL BILIRUBIN 3.3 mg/dL (0.0-1.5); TOTAL PROTEIN 7.4 g/dL (6.0-8.4)
[2016-07-10 06:16] LABS: INR - (THERAPEUTIC) 3.5 (0.9-1.1); PROTIME 40.8 SECONDS (9.6-11.1)
--- NOTE | 2016-07-10 07:34 | NUR ---
Significant Event: Pt restless/agitated on vent. Pt lightly sedated with versed, increased from 2mg to 3mg/hr. Pt does follow commands at times. Spontaneous movement x4 extremities. Does not track, but does have spontaneous eye opening. Hypotensive tonight. Fly gtt maxed at 2 mcg/kg/min. Levophed gtt started, currently infusing at 0.1mcg/kg/min, both are quad strength. HR 80s, remains in SR. IV antiobiotics. Slightly coarse lung dias with white secretions from ETT. at bedside throught the night. Anuria Bath given. Follow up: Continue cares.
--- NOTE | 2016-07-10 11:31 | NUR ---
CONSULT RECEIVED FOR RECS. DIALYSIS. VENT. REC NEPRO @ 55 ML/HR TO PROVIDE 2376 KCAL, 105 G PRO, 962 ML FREE WATER.
--- NOTE | 2016-07-10 11:32 | NUR ---
CONSULT RECEIVED FOR RECS. REC NEPRO @ 55 ML/HR.
--- NOTE | 2016-07-10 16:43 | NUR ---
PT VENTED ON 40% SATS 96-100%, BREATH SOUNDS SLIGHTLY COARSE THROUGHOUT BUT CLEAR SOME WITH SXN, SXN A SMALL AMOUNT OF CREAM ROD SPUTUM, ETCO2 35-39 MOST OF THE DAY, WILL CONTINUE TO MONITOR UNTIL FURTHER NOTICE
--- NOTE | 2016-07-10 17:15 | NUR ---
I HAVE REVIEWED AND AGREE WITH THE CHARTING OF SN SHARIF.
--- NOTE | 2016-07-10 18:28 | NUR ---
Significant Event: Patient sedated on versed gtt at 2mg/hr. Withdraws x4 extremities and is purposeful but nothing to command. Spontaneously opens eyes but not to command. Overbreathes set rate, has a cough and gag. SAS score of 3-4. Afebrile. VSS with the assistance of levophed and fly-synephrine gtt. Currently Fly-synephrine 2mg and levophed 0.08mcg/kg/min. CVP high 20's. ST low 100's. OG LIS. anuric. Started CRRT today at 1240. Goal is to pull 50ml/hr UF. of Follow up:
[2016-07-10 20:15] LABS: ALBUMIN 3.7 gm/dL (3.5-5.0); ANION GAP 18.8 (10.0-19.0); CALCIUM 9.7 mg/dL (8.5-10.5); CREATININE 3.7 mg/dL (0.6-1.3); MAGNESIUM 2.1 mg/dL (1.3-2.6); PHOSPHORUS 2.5 mg/dL (2.5-4.9); POTASSIUM 3.8 mMol/L (3.7-5.1)
[2016-07-11 04:09] LABS: ALBUMIN 3.6 gm/dL (3.5-5.0); ANION GAP 18.8 (10.0-19.0); CALCIUM 9.8 mg/dL (8.5-10.5); POTASSIUM 3.8 mMol/L (3.7-5.1)
[2016-07-11 04:21] LABS: INR - (THERAPEUTIC) 2.3 (0.9-1.1); PROTIME 25.7 SECONDS (9.6-11.1)
--- NOTE | 2016-07-11 05:19 | NUR ---
Significant Event: Pt continues to be sedated on Versed at 2mg/hr. Pt will follow commands will repeated stimulation to upper bilateral extremities. SPontaneous movement x4 extremities. Pt becomes easily agitated with cares. Tolerating ventilator well. Overbreathes vent set rate at times. Spontaneous cough. Ooziness noted from R)radial arterial line, dressing changed and reinforced with gauze. Pt continues on NXSTAGE without complications. UF 1605 for this shift. Pt is 7596+ this am. Levophed gtt weaned off. COntinues on Neosynephrine at 2mcg/kg/min. 30mmol of Sodium Phosphate given per CRRT orders. Bath given. Ammonia level trending down. No electrolyte replacement needed this am. Follow up: Cont cares
--- NOTE | 2016-07-11 05:39 | NUR ---
No changes made to vent settings this shift. FiO2 currently at 40% for O2 sats of 98-99%. ETCO2 was 34-38 throughout the shift. Breathsounds slightly coarse to coarse throughout bilaterally. Suctioning small to moderate amounts of thick creamy secretions. Will continue to monitor patient.
[2016-07-11 11:48] LABS: ALBUMIN 3.2 gm/dL (3.5-5.0); CALCIUM 10.1 mg/dL (8.5-10.5); CREATININE 2.5 mg/dL (0.6-1.3); MAGNESIUM 2.1 mg/dL (1.3-2.6); PHOSPHORUS 2.3 mg/dL (2.5-4.9)
--- NOTE | 2016-07-11 16:52 | NUR ---
PATIENT VENTED ON 40% SATS 94-98%, BREATH SOUNDS SLIGHTLY COARSE THROUGHOUT, SXN A SMALL AMOUNT OF WHITE BLOOD TINGED SPUTUM, ETCO2 34-38 MOST OF THE DAY, PT PLACED IN CPAP AROUND 1620 OF 08/17, WILL CONTINUE TO MONITOR AND WORK TOWARDS EXTUBATION
--- NOTE | 2016-07-11 17:16 | NUR ---
Significant Event: Versed was DC'd at 1355. Patient is restless/agitated on the vent at times. Withdraws extremities x4, but does not move to command. Opens eyes spontaneously. Pt was changed to CPAP at 1615. Currently infusing Fly at 1.2 mcg/kg/min to keep SBP >80. Continuing CRRT, pulling 100 ml/hr. Accucheck Q4H, treated x2 with D50. Hypothermic this AM with esophageal temperature of 94.5. Current temp is 97.9 with use of Lien Hugger. Art line DC'd due to leaking and dampened waveform.
[2016-07-11 20:52] LABS: ALBUMIN 3.2 gm/dL (3.5-5.0); ANION GAP 12.9 (10.0-19.0); CALCIUM 9.7 mg/dL (8.5-10.5); CREATININE 2.4 mg/dL (0.6-1.3); MAGNESIUM 1.9 mg/dL (1.3-2.6); POTASSIUM 3.9 mMol/L (3.7-5.1)
[2016-07-11 20:58] LABS: PHOSPHORUS 1.9 mg/dL (2.5-4.9)
[2016-07-12 04:04] LABS: ANION GAP 13.7 (10.0-19.0); CALCIUM 9.8 mg/dL (8.5-10.5); CREATININE 2.2 mg/dL (0.6-1.3); MAGNESIUM 1.9 mg/dL (1.3-2.6); POTASSIUM 3.7 mMol/L (3.7-5.1); TOTAL PROTEIN 6.5 g/dL (6.0-8.4)
[2016-07-12 04:05] LABS: PCO2 43 mmHg (35-45); PO2 110 mmHg (80-90)
[2016-07-12 04:54] LABS: BASOPHIL % 0.4 %; EOSINOPHIL # 0.3 K/uL (0.0-0.5); EOSINOPHIL % 3.8 %; HEMATOCRIT 26.8 % (37.0-53.0); HEMOGLOBIN 8.8 g/dL (11.0-16.0); IMMATURE GRANULOCYTE # 0.1 K/uL (0.0-0.3); IMMATURE GRANULOCYTE % 0.6 %; LYMPHOCYTE # 0.8 K/uL (0.8-4.0); LYMPHOCYTE % 9.5 %; MCH 35.9 pg (27.0-34.0); MCHC 32.8 gm/dL (32.0-36.5); MCV 109.4 fl (83.0-98.0); MONOCYTE # 0.8 K/uL (0.0-1.0); MONOCYTE % 9.4 %; NEUTROPHIL # (ANC) 6.2 K/uL (1.4-9.0); NEUTROPHIL % 76.3 %; NRBC % 1.7 /100WBC (0-0.00); RBC 2.45 M/uL (3.50-5.50); RDW-CV 17.9 % (11.9-14.6); WBC 8.1 K/uL (4.0-11.0)
[2016-07-12 04:56] LABS: PLATELET COUNT 120 K/uL (150-450)
[2016-07-12 05:03] LABS: INR - (THERAPEUTIC) 1.7 (0.9-1.1); PROTIME 18.1 SECONDS (9.6-11.1)
--- NOTE | 2016-07-12 05:17 | NUR ---
PATIENT REMAINS ON 40% FIO2 WITH SATURATIONS 96-98%. THE PATIENT WAS IN CPAP UNTIL 2250, AND THEN SWITCHED BACK TO AC FOR THE NIGHT. HE DID NOT TOLERATE CPAP THIS MORNING. HIS RESPIRATORY RATE DROPPED TO 8-9 BPM AND TIDAL VOLUMES OF 300-350 SO HE WAS SWITCHED BACK TO AC AGAIN. BREATH SOUNDS ARE SLIGHTLY COARSE TO COARSE. SUCTIONING SCANT TO SMALL CREAM. WILL CONTINUE TO MONITOR.
--- NOTE | 2016-07-12 05:18 | NUR ---
PATIENT IS MORE ALERT WILL MOVE MORE SPONTANEUOSLY,DOES NOT FOLLOW SIMPLE COMMANDS CONSISTANTLY,COARSE LUNGS SPUNDS CLEARS UP AFTER SUCTION,A/C VENT MODE FIO2=40%,I7TYL=03%,THICK CREAMY SECRETIONS WHEN SUCTIONED SMALL AMOUNT,ABD IS SOFT BOWEL SOUNDS PRESENTED,NX-STAGE RUNNING WITH NO PROBLEMS. FOLLOW UP:CONTINUE TO MONMITOR PATIENT'S HEMODYNAMIC AND RESPIRATORY STATUS CLOSELY.
--- NOTE | 2016-07-12 10:02 | NUR ---
A-NUTRITION F/U WEANING TRIALS STARTED; ON CPAP. VERSED IS OFF; PER RN REPORT, PT IS NOT VERY AWAKE. NX STAGE GOING. (+)BS LABS: NA 141, K+ 3.7, GLU 65, BUN 14, WRECKING CAR DRIVER 2.2, ALB 3.0 MEDS: ZOSYN DIET RX: NPO (DAY #3) EST NUTRITION NEEDS (FOR DIALYSIS): 0776-5370 KCALS AND 94-109 GM PROTEIN D-AT NUTRITION RISK W/INADEQUATE INTAKE OF NUTRIENTS R/T VENT SUPPORT AEB NPO STATUS. I-4/2 TF RECOMMENDATIONS MADE: NEPRO AT A GOAL RATE OF 55 ML/HR; PROVIDING 2376 KCALS, 105 GM PROTEIN, AND 962 ML FREE WATER. M/E-GOAL: START APPROPRIATE NUTRITION RX WHEN MEDICALLY INDICATED 1)F/U DIET RX AND POC IN 2-3 DAYS 2)ASSIST NEEDED
[2016-07-12 12:56] LABS: ALBUMIN 2.9 gm/dL (3.5-5.0); ANION GAP 15.8 (10.0-19.0); CALCIUM 9.7 mg/dL (8.5-10.5); PHOSPHORUS 3.1 mg/dL (2.5-4.9); POTASSIUM 3.8 mMol/L (3.7-5.1)
--- NOTE | 2016-07-12 13:15 | NUR ---
Spoke with patient's . Talked with her about skilled care. Not certain at this time what his needs will be. Will follow.
--- NOTE | 2016-07-12 16:37 | NUR ---
Significant Events: Patient continues to not follow commands, spontaneous movement x4 extremities. Head CT completed this afternoon. Ammonia level 29. SR with AV block and BBB. Fly on and off this shift to keep SBP >80. NxStage cartridge changed this afternoon. Started scheduled Lactulose. No BM Follow up: Continue
--- NOTE | 2016-07-12 16:45 | NUR ---
D: RESPIRATORY FAILURE I: V2OO , ALBUTEROL MDI R: BREATH SOUNDS SLIGHTLY COARSE, DECREASED LOWER LOBES, SXN- MODERATE THICK WHITE/CLEAR, ET TUBE SECURE, CUFF AT MINIMAL OCCLUSIVE PRESSURE, ETCO2 36-40, IN CPAP 5/ PS 10 FOR APPROX. 5 HRS, TOLERATED WELL- BACK IN RATE FOR INCREASED RR AND DECREASED VT P: CONTINUE CURRENT THERAPY/ WEAN VENT
[2016-07-12 20:22] LABS: ALBUMIN 3.1 gm/dL (3.5-5.0); ANION GAP 14.8 (10.0-19.0); CALCIUM 9.7 mg/dL (8.5-10.5); CREATININE 2.2 mg/dL (0.6-1.3); MAGNESIUM 1.9 mg/dL (1.3-2.6); PHOSPHORUS 2.1 mg/dL (2.5-4.9); POTASSIUM 3.8 mMol/L (3.7-5.1)
[2016-07-13 04:13] LABS: BICARBONATE 25.8 mmol/L (18.0-23.0); PCO2 38 mmHg (35-45)
[2016-07-13 04:15] LABS: PO2 153 mmHg (80-90)
--- NOTE | 2016-07-13 05:22 | NUR ---
D: BLEEDING FISTULA I: VENT, MDI R: PT. ON VENT AT 40% WITH SATS 96-99%. ETCO2 36-40. BREATH SOUNDS HAVE BEEEN SLIGHTLY COARSE T/O. SUCTIONED A SMALL TO MODERATE THICK CREAMY SECRETIONS. P: CPAP TRIALS AND CONTINUE TO WEAN VENT TOLERATED
[2016-07-13 05:38] LABS: INR - (THERAPEUTIC) 1.5 (0.9-1.1); PROTIME 16.2 SECONDS (9.6-11.1)
[2016-07-13 05:52] LABS: ALBUMIN 3.1 gm/dL (3.5-5.0); ANION GAP 15.7 (10.0-19.0); CALCIUM 9.9 mg/dL (8.5-10.5); POTASSIUM 3.7 mMol/L (3.7-5.1); TOTAL PROTEIN 6.9 g/dL (6.0-8.4)
[2016-07-13 05:58] LABS: TOTAL BILIRUBIN 8.2 mg/dL (0.0-1.5)
[2016-07-13 06:05] LABS: BASOPHIL % 0.5 %; EOSINOPHIL # 0.4 K/uL (0.0-0.5); EOSINOPHIL % 4.9 %; HEMATOCRIT 28.5 % (37.0-53.0); HEMOGLOBIN 9.6 g/dL (11.0-16.0); IMMATURE GRANULOCYTE # 0.1 K/uL (0.0-0.3); IMMATURE GRANULOCYTE % 1.1 %; LYMPHOCYTE # 0.8 K/uL (0.8-4.0); LYMPHOCYTE % 11.1 %; MCHC 33.7 gm/dL (32.0-36.5); MCV 106.7 fl (83.0-98.0); MONOCYTE # 0.8 K/uL (0.0-1.0); MONOCYTE % 10.9 %; MPV 10.2 fl (9.4-12.4); NEUTROPHIL # (ANC) 5.2 K/uL (1.4-9.0); NEUTROPHIL % 71.5 %; NRBC % 1.9 /100WBC (0-0.00); PLATELET COUNT 113 K/uL (150-450); RBC 2.67 M/uL (3.50-5.50); RDW-CV 18.6 % (11.9-14.6); WBC 7.3 K/uL (4.0-11.0)
--- NOTE | 2016-07-13 07:02 | NUR ---
Significant Event: Patient restless, no sedation. Attempts to open eyes to voice, does not follow commands. Moves all extremeties and withdraws to pain in x4. SR with BBB and AV block. BP stable on sabine at 0.4mcg/kg/min currently. Edema noted, afebrile. A/C on vent, lung sounds slightly coarse throughout. thin white secretions through ETT. Bowel sounds active, no bm this shift. OG to LIS. Anuric. Nxstage continues without complications this shift. No new or worsening skin issues. R)SC dialysis cath intact, R)IJ intact. Follow up: Neuro consult today.
[2016-07-13 11:55] LABS: ALBUMIN 3.1 gm/dL (3.5-5.0); ANION GAP 14.9 (10.0-19.0); CALCIUM 9.8 mg/dL (8.5-10.5); MAGNESIUM 1.9 mg/dL (1.3-2.6); PHOSPHORUS 3.4 mg/dL (2.5-4.9); POTASSIUM 3.9 mMol/L (3.7-5.1)
--- NOTE | 2016-07-13 13:10 | NUR ---
Brief visit with patient's . She is anxious for him to "wake up". Offered support. Will follow.
--- NOTE | 2016-07-13 14:17 | NUR ---
Significant Event: Spontaneous movement, no commands followed, PERRLA, sluggish. Opens eyes spontaneously no tracking. Neurology consulted. SBP > 80 on Fly at 0.4 mcq/kg/min. CVP monitoring. Generalized edema. Esophageal temperature monitoring. CPAP trial today. OG to LIS. Anuric. Nx stage, net goal loss to be even hourly. R) IJ triple lumen infusing Heparin, Fly, D10W. NaPhos given today. R) subclavian dialysis line. R) AC IV saline locked. Intermittent antibiotics. Pericares provided. Oral cares q4h. Repositioned throughout shift. Wrist restraints bilaterally. Follow up: monitor
[2016-07-13 20:37] LABS: ANION GAP 16.1 (10.0-19.0); CALCIUM 9.8 mg/dL (8.5-10.5); CREATININE 1.9 mg/dL (0.6-1.3); MAGNESIUM 1.8 mg/dL (1.3-2.6); PHOSPHORUS 2.6 mg/dL (2.5-4.9); POTASSIUM 4.1 mMol/L (3.7-5.1)
[2016-07-14 04:38] LABS: BICARBONATE 24.6 mmol/L (18.0-23.0); PCO2 37 mmHg (35-45)
[2016-07-14 04:40] LABS: PO2 109 mmHg (80-90)
--- NOTE | 2016-07-14 04:49 | NUR ---
Significant Event: PATIENT ALERT TO VOICE, INCONSISTENTLY FOLLOWING SIMPLE COMMANDS. OVERBREATHES SET RATE. GAG AND COUGH INTACT. SUCTIONING THICK SPUTUM AND ORAL SECRETIONS. AFEBRILE. CONTINUES OFF OF ZORAN GTT. A/C 16/600/5/30%. OGT TO LIS. CONTINUES ON NXSTAGE, NET GOAL TO KEEP EVEN, BLOOD FLOW RATE 250, FLUID THERAPY 3.0. ANURIC. SMEAR BM X3. Q4 HR ACCUCHECK IF BS>120 DECREASE D10 WATER TO 10ML/HR. RIGHT IJ TRIPLE LUMEN. CONTINUES ON HEPARIN GTT PER PROTOCOL. REPLACED 30MMOL SODIUM PHOSPHATES THIS SHIFT PER SLIDING SCALE. Follow up:
--- NOTE | 2016-07-14 05:17 | NUR ---
No vent changes made this shift. BrSs slightly coarse at times, clear with suctining of moderate amounts of thick, white secretions from ETT. No sedation, spontaneous movement, but does not follow directions. Continue to work toward weaning vent.
[2016-07-14 05:45] LABS: INR - (THERAPEUTIC) 1.5 (0.9-1.1); PROTIME 16.6 SECONDS (9.6-11.1)
[2016-07-14 06:14] LABS: BASOPHIL % 0.2 %; EOSINOPHIL % 0.2 %; HEMATOCRIT 29.4 % (37.0-53.0); IMMATURE GRANULOCYTE # 0.1 K/uL (0.0-0.3); LYMPHOCYTE # 0.5 K/uL (0.8-4.0); MCV 105.8 fl (83.0-98.0); MONOCYTE # 0.4 K/uL (0.0-1.0); MONOCYTE % 6.9 %; MPV 9.9 fl (9.4-12.4); NEUTROPHIL # (ANC) 5.2 K/uL (1.4-9.0); NEUTROPHIL % 83.7 %; NRBC % 1.6 /100WBC (0-0.00); PLATELET COUNT 97 K/uL (150-450); RBC 2.78 M/uL (3.50-5.50); RDW-CV 19.3 % (11.9-14.6); WBC 6.2 K/uL (4.0-11.0)
[2016-07-14 06:21] LABS: ANION GAP 15.9 (10.0-19.0); CALCIUM 9.6 mg/dL (8.5-10.5); CREATININE 1.8 mg/dL (0.6-1.3); POTASSIUM 3.9 mMol/L (3.7-5.1); TOTAL BILIRUBIN 8.6 mg/dL (0.0-1.5); TOTAL PROTEIN 7.1 g/dL (6.0-8.4)
--- NOTE | 2016-07-14 10:54 | NUR ---
A - ON VENT AND NXSTAGE. OG TO LIS. GLU 115, BUN/AUTOMOTIVE ELECTRICIAN HELPER 14/0.8, ALB 3.0. RN TO GET TF ORDERED TODAY. D - DIFFICULTY SWALLOWING R/T RELIANCE ON VENT AEB NPO STATUS. I - GOAL: TO MEET 100% OF NEEDS VIA TF. M/E - RELAYED TF RECS TO RN - NEPRO AT 55 ML/HR = 2376 KCALS, 105 GM PROTEIN, 962 ML FREE H20. WILL F/U IN 2-4 DAYS.
--- NOTE | 2016-07-15 00:39 | NUR ---
Significant Event: Patient alert. Moves all extremitites spontaneously does not follow commands. Intubated 30% FIO2. OG tube to intermittent suction. NPO no urine output. Bath given. Has double lummen R) IJ with CVP monitor. Cathflow used on R) IJ. IV to R) forearm SL. Follow up: DIALYSIS TODAY
[2016-07-15 03:40] LABS: HEMATOCRIT 30.2 % (37.0-53.0); HEMOGLOBIN 10.3 g/dL (11.0-16.0); MCH 35.9 pg (27.0-34.0); MCHC 34.1 gm/dL (32.0-36.5); MCV 105.2 fl (83.0-98.0); MPV 10.5 fl (9.4-12.4); PLATELET COUNT 98 K/uL (150-450); RBC 2.87 M/uL (3.50-5.50); WBC 9.7 K/uL (4.0-11.0)
[2016-07-15 03:43] LABS: ALBUMIN 2.9 gm/dL (3.5-5.0); ANION GAP 17.1 (10.0-19.0); CALCIUM 8.9 mg/dL (8.5-10.5); CREATININE 3.2 mg/dL (0.6-1.3); POTASSIUM 4.1 mMol/L (3.7-5.1); TOTAL BILIRUBIN 8.8 mg/dL (0.0-1.5)
[2016-07-15 03:47] LABS: INR - (THERAPEUTIC) 1.54 (0.92-1.07); PROTIME 16.2 SECONDS (9.8-11.4)
--- NOTE | 2016-07-15 04:05 | NUR ---
pt following commands. vent 30%. og to lis.
[2016-07-15 04:23] LABS: BICARBONATE 23.2 mmol/L (18.0-23.0); PCO2 35 mmHg (35-45); PO2 96 mmHg (80-90)
--- NOTE | 2016-07-15 05:06 | NUR ---
No vent changes made this shift. BrSs slightly coarse, clear with suctioning of moderate amounts of very thick, cream secretions from ETT. No sedation. Starting to open eyes more and follow more directions. SBT today.
[2016-07-15 05:44] LABS: ABSOLUTE NEUTROPHIL CT (ANC) 8.7 K/uL (1.4-9.0); LYMPHOCYTE # 0.7 K/uL (0.8-4.0); LYMPHOCYTE % 7 %; MONOCYTE # 0.3 K/uL (0.0-1.0); SEGMENTED NEUTROPHIL # 8.7 K/uL (1.4-9.0); SEGMENTED NEUTROPHIL % 90 %
--- NOTE | 2016-07-15 19:05 | NUR ---
Significant Event:Patient remained off sedation, follows commands, extubated @ 1619, flat affect responds with minimal words, remains jaundice, had hemodialysis today and took off 2.6L of fluid today. Kacey at bedside and updated throughout shift, plan for Bipap at night, mentioned to Dr Pham that pt's platelets 98 and noted slight blood tinged smear with stool. Follow up:Plan for Bipap at night
--- NOTE | 2016-07-16 04:22 | NUR ---
Significant Event: Patient becoming more alert throughout the night, still drowsy at times though. Disoriented to time and knows he is in the hospital. Conversational, quiet, mumbles. No cardiac events this shift. Currently on bipap, tolerating well. Bowel sounds active, no bm this shift, frequent flatus. No UOP. No new or worsening skin issues. Afebrile. R)IJ sl'd. Follow up: Status change?
[2016-07-16 04:34] LABS: ALBUMIN 3.1 gm/dL (3.5-5.0); ANION GAP 17.1 (10.0-19.0); CALCIUM 8.3 mg/dL (8.5-10.5); CREATININE 2.9 mg/dL (0.6-1.3); POTASSIUM 4.1 mMol/L (3.7-5.1); TOTAL BILIRUBIN 10.3 mg/dL (0.0-1.5); TOTAL PROTEIN 7.2 g/dL (6.0-8.4)
[2016-07-16 04:42] LABS: HEMATOCRIT 32.8 % (37.0-53.0); HEMOGLOBIN 11.1 g/dL (11.0-16.0); MCH 36.5 pg (27.0-34.0); MCHC 33.8 gm/dL (32.0-36.5); MCV 107.9 fl (83.0-98.0); MPV 10.8 fl (9.4-12.4); PLATELET COUNT 95 K/uL (150-450); RBC 3.04 M/uL (3.50-5.50); RDW-CV 21.4 % (11.9-14.6)
[2016-07-16 04:44] LABS: WBC 16.3 K/uL (4.0-11.0)
[2016-07-16 05:26] LABS: ABSOLUTE NEUTROPHIL CT (ANC) 14.5 K/uL (1.4-9.0); BANDED NEUTROPHIL # 0.8 K/uL (0.0-0.1); BANDED NEUTROPHILS % 5 %; LYMPHOCYTE # 1.5 K/uL (0.8-4.0); LYMPHOCYTE % 9 %; MONOCYTE # 0.3 K/uL (0.0-1.0); SEGMENTED NEUTROPHIL # 13.7 K/uL (1.4-9.0); SEGMENTED NEUTROPHIL % 84 %
[2016-07-16 06:29] LABS: INR - (THERAPEUTIC) 1.66 (0.92-1.07); PROTIME 17.5 SECONDS (9.8-11.4)
--- NOTE | 2016-07-16 15:13 | NUR ---
SIGNIFICANT EVENT: PATIENT ALERT, CONSISTENTLY ORIENTED TO PERSON, TOWARDS THE END OF THE SHIFT ORIENTED TO PERSON, PLACE, AND TIME. OCCASIOANLLY MAKES FORGETFUL/ CONFUSED COMMENTS. RE-ORIENTS EASILY. PUPILS EQUAL AND REACTIVE. PATIENT NODS YES/NO APPROPRIATELY. SPEECH IS MUMMBLED. PATIENT COMPLAINS OF NUMBNESS/ TINGLING IN BILATERAL UPPER AND LOWER EXTREMITIES (CHRONIC ISSUE). PATIENT MOVES ALL 4 EXTREMITIES SPONTANEOUSLY AND TO COMMANDS. GENERALIZED WEAKNESS, EQUAL STRENGTH THROUGHOUT. PATIENT HAS BEEN DENYING ANY PAIN. PATIENT HAS BEEN IN SINUS RHYTHM, OCCASIONAL BBB NOTED. HR 70-80S. PULSES PALPABLE THROUGHOUT. AFEBRILE. EDEMA PRESENT. ZORAN GTT AT 0.2 MCG/KG/MIN TO KEEP SBP>90 AND MAP>60. PATIENT WEANED TO 3L NASAL CANNULA, SATS MID TO UPPER 90S. SPONT COUGH. PATIENT PROVIDED WITH INSINTIVE SPIROMETER INSTRUCTIONS, IS UTILIZED HOURLY WITH REMINDERS. BOWEL SOUNDS PRESENT, HYPO-ACTIVE. NO BM. PATIENT STATES HE FEELS CONSTIPATED. FAILED BEDSIDE SWALLOW ASSESSMENT BY RN AND SPEECH THERAPIST, WILL RE-EVALUATE IN AM. NPO. NO URINE OUTPUT. CT OF CHEST, ABDOMEN, AND PELVIS TODAY, DR. LEACH AWARE AND NOTIFIED OF RESULTS. NO NEW SKIN ISSUES NOTED. UP TO CHAIR X1. REPOSITIONED AT LEAST EVERY 2 HOURS. PT AND OT WORKING WITH PATIENT. FOLLOW UP: CONTINUE TO MONITOR AND WEAN OFF VENT
[2016-07-17 04:19] LABS: HEMATOCRIT 33.7 % (37.0-53.0); HEMOGLOBIN 11.6 g/dL (11.0-16.0); MCH 36.6 pg (27.0-34.0); MCHC 34.4 gm/dL (32.0-36.5); MCV 106.3 fl (83.0-98.0); MPV 11.1 fl (9.4-12.4); RBC 3.17 M/uL (3.50-5.50); RDW-CV 21.6 % (11.9-14.6)
[2016-07-17 04:20] LABS: PLATELET COUNT 115 K/uL (150-450); WBC 16.5 K/uL (4.0-11.0)
[2016-07-17 04:22] LABS: ALBUMIN 2.8 gm/dL (3.5-5.0); ANION GAP 17.7 (10.0-19.0); CALCIUM 8.3 mg/dL (8.5-10.5); POTASSIUM 4.7 mMol/L (3.7-5.1); TOTAL BILIRUBIN 11.6 mg/dL (0.0-1.5); TOTAL PROTEIN 6.9 g/dL (6.0-8.4)
[2016-07-17 04:23] LABS: CREATININE 4.7 mg/dL (0.6-1.3)
[2016-07-17 04:26] LABS: INR - (THERAPEUTIC) 1.79 (0.92-1.07); PROTIME 18.9 SECONDS (9.8-11.4)
[2016-07-17 05:02] LABS: ABSOLUTE NEUTROPHIL CT (ANC) 15.2 K/uL (1.4-9.0); BANDED NEUTROPHIL # 0.7 K/uL (0.0-0.1); BANDED NEUTROPHILS % 4 %; LYMPHOCYTE # 0.5 K/uL (0.8-4.0); LYMPHOCYTE % 3 %; MONOCYTE # 0.7 K/uL (0.0-1.0); SEGMENTED NEUTROPHIL # 14.5 K/uL (1.4-9.0); SEGMENTED NEUTROPHIL % 88 %
--- NOTE | 2016-07-17 05:38 | NUR ---
Significant Event: No significant changes this shift. Patient more alert and oriented than previous night. Experiencing visual halluctinations in the night, but remain oriented. Fly currently at 0.2mcg/kg/min. On 2L/NC. BM x1, ray blood noted, occult blood positive. No skin changes. Afebrile. NS carrier at 10ml/hr. Follow up: Wean fly
--- NOTE | 2016-07-17 11:48 | NUR ---
Significant Event:PT IS AAOX3. SLOW TO RESPOND. DOES GET OFF SUBJECT EASILY AND CAN HAVE HARD TIME MAINTAINING CONVERSATION WITHOUT TALKING ABOUT SOMETHING ELSE. +1 EDEMA TO LOWER EXTREMITIES. ON 2L NC. CLEAR AND DIMINISHED LUNG SOUNDS HYPO BS. WORKING WITH SPEECH TO POSSIBLE ADV TO A DIET. HAS BEEN NPO. SL'D EXCEPT FOR IVATB. JAUDICE NOTED TO SKIN AND EYES. NO C/O PAIN. R) IJ. R)PIV IN AC. R) SUBCLAVIN DIAYLSIS CATH. PLANS FOR DIAYLSIS TOMORROW. GOAL TO KEEP MAPS >60 Follow up:MONITOR LOC AND BP
[2016-07-18 03:06] LABS: ALBUMIN 2.5 gm/dL (3.5-5.0); ANION GAP 21.7 (10.0-19.0); CALCIUM 8.8 mg/dL (8.5-10.5); HEMATOCRIT 33.1 % (37.0-53.0); HEMOGLOBIN 11.5 g/dL (11.0-16.0); MCH 36.6 pg (27.0-34.0); MCHC 34.7 gm/dL (32.0-36.5); MCV 105.4 fl (83.0-98.0); MPV 11.2 fl (9.4-12.4); PLATELET COUNT 125 K/uL (150-450); POTASSIUM 4.7 mMol/L (3.7-5.1); RBC 3.14 M/uL (3.50-5.50); RDW-CV 21.6 % (11.9-14.6); TOTAL BILIRUBIN 11.8 mg/dL (0.0-1.5); TOTAL PROTEIN 6.6 g/dL (6.0-8.4)
[2016-07-18 03:07] LABS: WBC 16.2 K/uL (4.0-11.0)
[2016-07-18 03:13] LABS: INR - (THERAPEUTIC) 2.02 (0.92-1.07); PROTIME 21.4 SECONDS (9.8-11.4)
[2016-07-18 03:42] LABS: ABSOLUTE NEUTROPHIL CT (ANC) 14.6 K/uL (1.4-9.0); BANDED NEUTROPHIL # 0.5 K/uL (0.0-0.1); BANDED NEUTROPHILS % 3 %; LYMPHOCYTE # 1.1 K/uL (0.8-4.0); LYMPHOCYTE % 7 %; MONOCYTE # 0.5 K/uL (0.0-1.0); SEGMENTED NEUTROPHIL # 14.1 K/uL (1.4-9.0); SEGMENTED NEUTROPHIL % 87 %
--- NOTE | 2016-07-18 05:40 | NUR ---
Significant Event: Pt is alert and orineted, but is very forgetfull and impulsive, pulls at cords and picks at dressings. Pupils are equal and reactive. Moves all extremities spontaneously and to command. Fly gtt to keep MAP greater than 60. Pt is jaundaiced. 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 Dressing over old Fistula site on L) FA. BM this shift was ray blood with clots, MD's notified. Pureed diet with nector thickened liquids. 1:1 feeder. R) subclavian dialysis line, R) IJ, and 1 PIV. Follow up: Dialysis today.
--- NOTE | 2016-07-18 10:58 | NUR ---
A-NUTRITION F/U 07/15 EXTUBATED. 07/17 (+)BM; HERIBERTO BLOOD NOTED. DIALYSIS PLANNED FOR TODAY. SWALLOW EVAL; ST RECOMMENDED ALTERED CONSISTENCY/LIQUIDS. 1:1 FEEDER; PER RN PT EATS WELL WITH ASSISTANCE. 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 PO INTAKE 10-50% SINCE EXTUBATED. EST NUTR NEEDS: [id number] KCALS AND 94-109 GM PROTEIN D-AT NUTRITION RISK W/DIFF. SWALLOWING R/T RECENT VENT SUPPORT SUPPORT, WEAKNESS AEB SPEECH EVAL, NEED FOR ALTERED CONSISTENCY OF FOOD/FLUIDS, INTAKE RECORD. I-1)ADD ENSURE PUDDING BID AT B/L 2)ADD MAGIC CUPS BID AT L/D M/E-GOAL: PO INTAKE >/=50% BY THE NEXT F/U 1)F/U PO INTAKE, SUPPLEMENT, AND POC (3-5 DAYS) 2)ASSIST NEEDED
--- NOTE | 2016-07-18 12:30 | NUR ---
Spoke with patient and . Patient seems a little confused. Talked with them about skilled care and options. is still hoping he can go home, but knows he will probably need skilled care. Will follow.
--- NOTE | 2016-07-18 17:43 | NUR ---
Significant Event: Patient is A&O X3, follows all commands. Confused and forgetfull at times. Pupils are equal and reactive. SBP have been 60's-low 100's, MAP's 40's-70's,Fly is running at 1mcg/kg/min. HR 80's-90's. Patient is on 1L NC with o2 sats low to mid 90's. Lungs are clear and diminished. Patient has a fistula in the left AC. Patient had Dialysis today. Follow up:
[2016-07-19 05:19] LABS: CALCIUM 8.1 mg/dL (8.5-10.5); TOTAL BILIRUBIN 13.9 mg/dL (0.0-1.5); TOTAL PROTEIN 6.6 g/dL (6.0-8.4)
[2016-07-19 05:34] LABS: BASOPHIL % 0.2 %; HEMATOCRIT 32.2 % (37.0-53.0); HEMOGLOBIN 11.2 g/dL (11.0-16.0); IMMATURE GRANULOCYTE # 0.4 K/uL (0.0-0.3); IMMATURE GRANULOCYTE % 1.9 %; LYMPHOCYTE # 0.8 K/uL (0.8-4.0); LYMPHOCYTE % 3.5 %; MCH 36.2 pg (27.0-34.0); MCHC 34.8 gm/dL (32.0-36.5); MCV 104.2 fl (83.0-98.0); MONOCYTE # 1.4 K/uL (0.0-1.0); MONOCYTE % 6.2 %; MPV 11.3 fl (9.4-12.4); NEUTROPHIL # (ANC) 20.4 K/uL (1.4-9.0); NEUTROPHIL % 88.2 %; NRBC % 1.4 /100WBC (0-0.00); RBC 3.09 M/uL (3.50-5.50); RDW-CV 21.8 % (11.9-14.6)
[2016-07-19 05:38] LABS: PLATELET COUNT 192 K/uL (150-450); WBC 23.1 K/uL (4.0-11.0)
--- NOTE | 2016-07-19 06:52 | NUR ---
Significant Event: Continues to be alert and oriented x3 with periods of confusion, re-orients easily. Visual hallucination reported x1 this shift. Fly maxed to 2mcg/kg/min this AM after transfer to chair. No respiratory events. Continues to have ray bloody/clots bowel movements. Skin changes noted. Afebrile. Follow up: Sigmoidoscopy today, wean fly
--- NOTE | 2016-07-19 13:45 | NUR ---
Brief social visit with patient's . Will follow.
--- NOTE | 2016-07-19 17:25 | NUR ---
Significant Event:GI: Flexi sigmoidoscopy today with Dr. Amin. Two sites found in colon actively bleeding. Epi x 1 and cauterized x 1. Rai blood in stool with large clots x 3. Tap water and fleet enemas given. CARDIO: Fly gtt at 2 mcg/kg/min to keep MAP > 65. Unable to wean this shift. Afebrile. RESP: 3L NC to keep O2 > 90%. Desats with sleep and positional. NEURO: Confusion at times but clearing at the end of the shift. A & O x 2, disoriented to place. Follow up: : Dialysis planned tomorrow. GI: Monitor for rectal bleeding.
--- NOTE | 2016-07-19 18:47 | NUR ---
Significant Event: NEURO: Patient A/O x2 forgetful to place and confused at at times but able to reorient. Pulils equal and reactive. CARDIO: SBP have been 90's to 140. HRs 60s to upper 80s. MAPs 60's to 80s. Unable to wean Fly below 2mcg/kg/min and keep MAPs > 65. RESPIRATORY: Currently on 3L NS 02 sats dropped to mid 80 currently upper 90's. Lungs clear and diminished. GI/: hypoactive bowel sounds, NPO with bloody clotted stools x3 today. INTEG/DRSG/DRAINS: tubigrip on legs at night. bruised and bleeding on back of L upper shoulder. Old fistula site covered with small amount of bleeding. New site open to air. IV: rt AC, rt jugular flush well. Right sublclavian used for dialysis. Patient had CT done of low back today, and a sigmoidoscopy done by Dr. Aguilar. Preped with tap water eneama and a fleet enema during procedure. 2 bleeding sites found, epi x1 and cauterize x1. PLAN: Patient will have dialysis tomorrow, look for bleeding in stool. dialysis. Follow up:
--- NOTE | 2016-07-20 04:45 | NUR ---
Significant Event: A/ox3 but forgetful and makes confused comments. Fly at 2 mcg/kg/min. BP labile. Otherwise VSS. Lungs clear/dim. CPAP on RA at overnight. Anuric. BM x1, slightly bloody, Dr. Amin aware. Denies pain. Follow up: Wean fly
[2016-07-20 05:31] LABS: ALBUMIN 2.5 gm/dL (3.5-5.0); CALCIUM 8.4 mg/dL (8.5-10.5); TOTAL BILIRUBIN 16.3 mg/dL (0.0-1.5); TOTAL PROTEIN 5.9 g/dL (6.0-8.4)
[2016-07-20 05:32] LABS: ANION GAP 18.8 (10.0-19.0); CREATININE 5.5 mg/dL (0.6-1.3); POTASSIUM 4.8 mMol/L (3.7-5.1)
[2016-07-20 05:42] LABS: HEMATOCRIT 32.8 % (37.0-53.0); HEMOGLOBIN 11.3 g/dL (11.0-16.0); MCH 36.3 pg (27.0-34.0); MCHC 34.5 gm/dL (32.0-36.5); MCV 105.5 fl (83.0-98.0); MPV 11.6 fl (9.4-12.4); PLATELET COUNT 184 K/uL (150-450); RBC 3.11 M/uL (3.50-5.50); RDW-CV 22.5 % (11.9-14.6)
[2016-07-20 05:46] LABS: INR - (THERAPEUTIC) 3.19 (0.92-1.07); PROTIME 33.9 SECONDS (9.8-11.4)
[2016-07-20 05:47] LABS: WBC 37.1 K/uL (4.0-11.0)
[2016-07-20 06:30] LABS: ABSOLUTE NEUTROPHIL CT (ANC) 34.9 K/uL (1.4-9.0); BANDED NEUTROPHIL # 2.6 K/uL (0.0-0.1); BANDED NEUTROPHILS % 7 %; LYMPHOCYTE # 0.7 K/uL (0.8-4.0); LYMPHOCYTE % 2 %; MONOCYTE # 1.5 K/uL (0.0-1.0); SEGMENTED NEUTROPHIL # 32.3 K/uL (1.4-9.0); SEGMENTED NEUTROPHIL % 87 %
--- NOTE | 2016-07-20 16:40 | NUR ---
Significant Event: PATIENT ALERT AND ORIENTED TO SELF AND TIME. CONFUSED COMMENTS AT TIMES. MUMBLES. CHRONIC N/T TO FINGERS AND TOES. SBP HAVE BEEN 140s-70s. UNABLE TO WEAN ZORAN BELOW 2MCG/KG/MIN. GAVE 1ML DIGOXIN. STARTED DOBUTAMINE GTT BUT SBP DROPPED TO 70s, DISCONTINUED. HEMODIALYSIS TODAY. LUNGS CLEAR, ON 1L NC OF O2, CPAP AT NIGHT. CHEST CT TODAY. BOWELS HYPOACTIVE, BLOODY STOOL. ANURIC. CLEAR LIQUID DIET, NECTAR THICK. R) SUBCLAVIAN FOR DIALYSIS. R) JUGULAR, GOOD BLOOD RETURN. Follow up: CONTINUE TO TRY TO WEAN ZORAN. NEEDS STOOL SAMPLE FOR CDIFF.
[2016-07-21 04:07] LABS: INR - (THERAPEUTIC) 3.46 (0.92-1.07); PROTIME 36.8 SECONDS (9.8-11.4)
[2016-07-21 04:27] LABS: ALBUMIN 2.7 gm/dL (3.5-5.0); ANION GAP 14.7 (10.0-19.0); CALCIUM 8.2 mg/dL (8.5-10.5); CREATININE 3.6 mg/dL (0.6-1.3); POTASSIUM 3.7 mMol/L (3.7-5.1); TOTAL BILIRUBIN 18.2 mg/dL (0.0-1.5); TOTAL PROTEIN 5.9 g/dL (6.0-8.4)
--- NOTE | 2016-07-21 05:19 | NUR ---
A/O x3. PERRLA. No c/o pain this shift. Continues on Fly gtt to keeps MAPs >65. 1L NC. 2 bloody BMs this shift. Did not treat any blood sugars this shift. Bath given this shift. Follow up: Continue to wean Fly gtt.
[2016-07-21 05:36] LABS: HEMATOCRIT 31.7 % (37.0-53.0); HEMOGLOBIN 11.1 g/dL (11.0-16.0); MCH 36.8 pg (27.0-34.0); MPV 11.3 fl (9.4-12.4); PLATELET COUNT 167 K/uL (150-450); RBC 3.02 M/uL (3.50-5.50); RDW-CV 22.6 % (11.9-14.6)
[2016-07-21 05:37] LABS: WBC 27.8 K/uL (4.0-11.0)
[2016-07-21 06:08] LABS: ABSOLUTE NEUTROPHIL CT (ANC) 24.5 K/uL (1.4-9.0); BANDED NEUTROPHIL # 0.8 K/uL (0.0-0.1); BANDED NEUTROPHILS % 3 %; LYMPHOCYTE # 1.4 K/uL (0.8-4.0); LYMPHOCYTE % 5 %; MONOCYTE # 1.4 K/uL (0.0-1.0); SEGMENTED NEUTROPHIL # 23.6 K/uL (1.4-9.0); SEGMENTED NEUTROPHIL % 85 %
--- NOTE | 2016-07-21 09:57 | NUR ---
A - NUT F/U. A/O TO SELF. DIALYSIS. BLOODY STOOLS. DIET CHANGED TO CLEAR LIQUID PER GI. LABS: ACCUCHECK WNL, BUN/CR 36/3.6, ALB 2.7, TOT BILI 18.2, AST 117, WBC 27.8. MEDS: PREVACID, SSI, FLAGYL, LACTULOSE, BOWEL/NAUSEA, NEPHRON. DIET: NECTAR THICK CLEAR LIQUID. INTAKE: 0-50%. WAS ON PUREED NECTAR LIQUIDS. RECEIVED ENSURE PUDDING @ [facility] AND MAGIC CUP @ L&D - ON HOLD NOW NEEDS: [id number] KCAL, 94-109 G PRO D - INADEQUATE NUTRIENT INTAKE R/T DECREASED APPETITE, ALTERED GI FUNCTION AEB INTAKE RECORD, LIQUID DIET, BLOODY STOOLS. I - GOAL FOR DIET TO BE ADVANCED TOLERATED. M/E - WILL MONITOR INTAKE AND DIET ADVANCEMENT. F/U IN 4-5 DAYS.
--- NOTE | 2016-07-21 17:03 | NUR ---
Spoke with Pamella at [facility] and Ninfa at [facility] and both will consider a dialysis patient depending on his chair time. Spoke with patient and this afternoon. Patient is still a little confused. His dialysis time at [facility] is at 5 a.m. Will call and talk to [facility] to see if different time available. Did talk with them about skilled care and they agree he will probably need therapy before going home. Will make referrals early next week. Will follow.
--- NOTE | 2016-07-21 17:30 | NUR ---
SIGNIFICANT EVENT: PATIENT ALERT, ORIENTED X3. OPENS EYES SPONTANEOUSLY AND TO VOICE. PUPILS EQUAL AND REACTIVE. SPEECH IS APPROPRIATE, MAKES NEEDS KNOWN. SOME FORGETFUL COMMENTS, RE-ORIENTS EASILY. DENIES ANY PAIN. COMPLAINS OF CHRONIC NUMBNESS AND TINGLING, MD AWARE. PATIENT MOVES ALL 4 EXTREMITIES SPONTANEOUSLY AND TO COMMANDS. EQUAL STRENGTH THROUGHOUT, GENERALIZED WEAKNESS. PATIENT HAS BEEN IN SINUS RHYTHM 70-110S. ZORAN GTT AT 0.6 MCG/KG/MIN TO KEEP MAP >65. SBP 80-110S, MAP<65. AFEBRILE. PUSLSES PALPABLE THROUGHOUT. CALCIUM GLUCANTAE IV GIVEN TODAY AND ALBUMIN PER MD ORDER. PATIENT WEANED DOWN TO 1L OF OXYGEN VIA NASAL CANNULA, SATS LOWER TO MID 90S. PATIENT UTLIZES INCENTICE SPIROMETER HOURLY WITH REMINDERS. BOWEL SOUNDS ACTIVE, 2 SMALL DARK BLOOD TINGED BOWEL MOVEMENTS, FORMED, REPORTED TO ARLEEN MARS AND DR ZAYAS. NECTAR THICK CLEAR LIQUID DIET, TOLERATING WELL. ANURIC. NO NEW SKIN ISSUES NOTED. PATIENT COOPERATIVE WITH ALL CARES.
[2016-07-22 04:56] LABS: HEMATOCRIT 30.1 % (37.0-53.0); HEMOGLOBIN 10.5 g/dL (11.0-16.0); MCH 37.1 pg (27.0-34.0); MCHC 34.9 gm/dL (32.0-36.5); MCV 106.4 fl (83.0-98.0); MPV 11.1 fl (9.4-12.4); PLATELET COUNT 154 K/uL (150-450); RBC 2.83 M/uL (3.50-5.50); RDW-CV 22.8 % (11.9-14.6)
[2016-07-22 04:58] LABS: ALBUMIN 3.1 gm/dL (3.5-5.0); ANION GAP 19.2 (10.0-19.0); CALCIUM 8.7 mg/dL (8.5-10.5); POTASSIUM 4.2 mMol/L (3.7-5.1); TOTAL PROTEIN 5.6 g/dL (6.0-8.4)
[2016-07-22 05:00] LABS: INR - (THERAPEUTIC) 3.11 (0.92-1.07)
[2016-07-22 05:07] LABS: WBC 25.2 K/uL (4.0-11.0)
[2016-07-22 05:12] LABS: CREATININE 5.2 mg/dL (0.6-1.3); TOTAL BILIRUBIN 20.5 mg/dL (0.0-1.5)
--- NOTE | 2016-07-22 05:24 | NUR ---
Significant Event: A/OX3. CONFUSED AT TIMES. HR'S 90'S-100'S. CONTINUES ON ZORAN TO KEEP MAPS GREATER THAN 65. 1L NC. 2 BLOODY BMS DURING SHIFT. ZOFRAN GIVEN FOR NAUSEA. PATIENT DID C/O OF FEELING DIZZY DURING SHIFT. NO UOP. Follow up:DIALYSIS THIS AM. WEAN ZORAN.
[2016-07-22 05:35] LABS: ABSOLUTE NEUTROPHIL CT (ANC) 22.9 K/uL (1.4-9.0); BANDED NEUTROPHIL # 0.8 K/uL (0.0-0.1); BANDED NEUTROPHILS % 3 %; LYMPHOCYTE % 4 %; MONOCYTE # 1.3 K/uL (0.0-1.0); SEGMENTED NEUTROPHIL # 22.2 K/uL (1.4-9.0); SEGMENTED NEUTROPHIL % 88 %
--- NOTE | 2016-07-22 19:29 | NUR ---
Significant Event:A/O X 3. Confused statements at times. Moves all extremities to command and spontaneously. Chronic numbness and tingling from L) elbow down to the hand, R) hand, and mainor from the knee down. SBP dropped to 50's. Zoran was titrated with new order for ZORAN at 3 mcg/kg/min. Hemodialysis was unable to removed fluids and gave 2 doses of Albumin and then 2 more given today after dialysis. Dialysis nurse gave 500 ml NS. Afebrile. O2 remained at 1L/NC today. Refused to be up in chair today after his bath. NO UOP today. BM after hemodialysis was formed brown and bloody. Tolerating clear liquid, nectar thickened liquids. NO pain meds requested. updated and supported at the bedside. Follow up:Wean Zoran
[2016-07-22 19:51] LABS: TOTAL BILIRUBIN 20.3 mg/dL (0.0-1.5)
[2016-07-23 04:29] LABS: ALBUMIN 3.7 gm/dL (3.5-5.0); CALCIUM 8.5 mg/dL (8.5-10.5)
[2016-07-23 04:32] LABS: ANION GAP 14.1 (10.0-19.0); CREATININE 3.3 mg/dL (0.6-1.3); POTASSIUM 4.1 mMol/L (3.7-5.1); TOTAL BILIRUBIN 19.7 mg/dL (0.0-1.5); TOTAL PROTEIN 5.7 g/dL (6.0-8.4)
[2016-07-23 04:37] LABS: BASOPHIL % 0.1 %; EOSINOPHIL % 0.2 %; HEMATOCRIT 28.8 % (37.0-53.0); HEMOGLOBIN 9.7 g/dL (11.0-16.0); IMMATURE GRANULOCYTE # 0.6 K/uL (0.0-0.3); LYMPHOCYTE # 0.6 K/uL (0.8-4.0); LYMPHOCYTE % 2.9 %; MCH 36.9 pg (27.0-34.0); MCHC 33.7 gm/dL (32.0-36.5); MCV 109.5 fl (83.0-98.0); MONOCYTE # 1.6 K/uL (0.0-1.0); MONOCYTE % 7.6 %; NEUTROPHIL # (ANC) 17.7 K/uL (1.4-9.0); NEUTROPHIL % 86.2 %; NRBC % 2.6 /100WBC (0-0.00); PLATELET COUNT 157 K/uL (150-450); RBC 2.63 M/uL (3.50-5.50)
[2016-07-23 04:39] LABS: WBC 20.5 K/uL (4.0-11.0)
[2016-07-23 04:44] LABS: INR - (THERAPEUTIC) 3.53 (0.92-1.07); PROTIME 37.5 SECONDS (9.8-11.4)
--- NOTE | 2016-07-23 19:09 | NUR ---
Significant Event:A/O X 3, confused at times with confused ideas about reality. No impulsiveness. HR 80's to 90's. SBP assisted with Fly, which was increased to 2.5 mcg/kg/min. Dependent edema 2+. Afebrile. Remains on 1L/NC, lungs slightly coarse and diminished. Poor appetite, clear liquid, nectar thickened liquids, 3 small bloody BM smears. UP to the chair and back x 2. Complete bath given. NO UOP. Follow up:Transfer for possible device.
[2016-07-24 00:24] LABS: BASOPHIL % 0.1 %; EOSINOPHIL % 0.1 %; HEMATOCRIT 32.1 % (37.0-53.0); HEMOGLOBIN 10.6 g/dL (11.0-16.0); IMMATURE GRANULOCYTE # 0.4 K/uL (0.0-0.3); IMMATURE GRANULOCYTE % 1.7 %; LYMPHOCYTE # 0.5 K/uL (0.8-4.0); LYMPHOCYTE % 2.2 %; MCH 36.4 pg (27.0-34.0); MCV 110.3 fl (83.0-98.0); MONOCYTE # 1.4 K/uL (0.0-1.0); MONOCYTE % 6.1 %; MPV 11.3 fl (9.4-12.4); NEUTROPHIL # (ANC) 20.9 K/uL (1.4-9.0); NEUTROPHIL % 89.8 %; NRBC % 2.6 /100WBC (0-0.00); PLATELET COUNT 173 K/uL (150-450); RBC 2.91 M/uL (3.50-5.50); RDW-CV 24.5 % (11.9-14.6)
[2016-07-24 00:29] LABS: ALBUMIN 3.3 gm/dL (3.5-5.0); CALCIUM 8.8 mg/dL (8.5-10.5); PHOSPHORUS 3.9 mg/dL (2.5-4.9)
[2016-07-24 00:30] LABS: INR - (THERAPEUTIC) 3.99 (0.92-1.07); PROTIME 42.5 SECONDS (9.8-11.4)
[2016-07-24 00:36] LABS: ANION GAP 18.6 (10.0-19.0); POTASSIUM 4.6 mMol/L (3.7-5.1)
[2016-07-24 00:37] LABS: CREATININE 4.6 mg/dL (0.6-1.3); TOTAL BILIRUBIN 22.1 mg/dL (0.0-1.5); TOTAL PROTEIN 5.9 g/dL (6.0-8.4)
[2016-07-24 00:40] LABS: WBC 23.3 K/uL (4.0-11.0)
[2016-07-24 02:23] LABS: BICARBONATE 16.4 mmol/L (18.0-23.0); PCO2 35 mmHg (35-45); PO2 67 mmHg (80-90)
== END 2016-07-24 06:13 | disposition expired | DRG 252 ==
LOC: GMED 02:46 → GICU 04:10 → GPCU 04:10 → GICU 07-06 15:59
PROVIDERS: Emergency Medicine; Family Medicine; Hospitalist; Internal Medicine; Internal Medicine Critical Care Medicine; Internal Medicine Interventional Cardiology; Internal Medicine Nephrology; Nurse Practitioner; Surgery Vascular Surgery; ADMIT Family Medicine
PROC: 5A1D60Z (ICD-10-PCS; 2016-07-05)
PROC: 0W3Q8ZZ Control Bleeding in Respiratory Tract, Via Natural or Artificial Opening Endoscopic (ICD-10-PCS; principal; 2016-07-06)
PROC: 031809D Bypass Left Brachial Artery to Upper Arm Vein with Autologous Venous Tissue, Open Approach (ICD-10-PCS; principal; 2016-07-06)
PROC: 05LF0ZZ Occlusion of Left Cephalic Vein, Open Approach (ICD-10-PCS; principal; 2016-07-06)
PROC: 03HB33Z Insertion of Infusion Device into Right Radial Artery, Percutaneous Approach (ICD-10-PCS; 2016-07-06)
PROC: 0BH17EZ Insertion of Endotracheal Airway into Trachea, Via Natural or Artificial Opening (ICD-10-PCS; 2016-07-09)
PROC: 5A1955Z Respiratory Ventilation, Greater than 96 Consecutive Hours (ICD-10-PCS; 2016-07-09)
PROC: 02HV33Z Insertion of Infusion Device into Superior Vena Cava, Percutaneous Approach (ICD-10-PCS; 2016-07-09)
PROC: 5A2204Z Restoration of Cardiac Rhythm, Single (ICD-10-PCS; 2016-07-09)
PROC: 30233K1 Transfusion of Nonautologous Frozen Plasma into Peripheral Vein, Percutaneous Approach (ICD-10-PCS; 2016-07-09)
PROC: 0W3P8ZZ Control Bleeding in Gastrointestinal Tract, Via Natural or Artificial Opening Endoscopic (ICD-10-PCS; 2016-07-19)
PROC: 30233K1 Transfusion of Nonautologous Frozen Plasma into Peripheral Vein, Percutaneous Approach (ICD-10-PCS; 2016-07-24)
DX: I27.81 Cor pulmonale (chronic) (principal); T81.11XA Postprocedural cardiogenic shock, initial encounter; K72.00 Acute and subacute hepatic failure without coma; J96.01 Acute respiratory failure with hypoxia; N17.9 Acute kidney failure, unspecified; G93.40 Encephalopathy, unspecified; N18.6 End stage renal disease; D69.6 Thrombocytopenia, unspecified; Z51.5 Encounter for palliative care; I48.92 Unspecified atrial flutter; I48.2 Chronic atrial fibrillation; I13.2 Hypertensive heart and chronic kidney disease with heart failure and with stage 5 chronic kidney disease, or end stage renal disease; K62.5 Hemorrhage of anus and rectum; I48.1 Persistent atrial fibrillation; T82.838A Hemorrhage due to vascular prosthetic devices, implants and grafts, initial encounter; J98.11 Atelectasis; I27.2 Other secondary pulmonary hypertension; I95.81 Postprocedural hypotension; I50.9 Heart failure, unspecified; I08.1 Rheumatic disorders of both mitral and tricuspid valves; G62.9 Polyneuropathy, unspecified; E66.01 Morbid (severe) obesity due to excess calories; E16.2 Hypoglycemia, unspecified; Z99.2 Dependence on renal dialysis; Z68.39 Body mass index [BMI] 39.0-39.9, adult; G47.33 Obstructive sleep apnea (adult) (pediatric); R04.0 Epistaxis; Z79.01 Long term (current) use of anticoagulants; L30.9 Dermatitis, unspecified; Y83.2 Surgical operation with anastomosis, bypass or graft as the cause of abnormal reaction of the patient, or of later complication, without mention of misadventure at the time of the procedure; Y82.8 Other medical devices associated with adverse incidents; D63.1 Anemia in chronic kidney disease; D72.829 Elevated white blood cell count, unspecified; G89.29 Other chronic pain; M54.9 Dorsalgia, unspecified; K21.9 Gastro-esophageal reflux disease without esophagitis; H91.90 Unspecified hearing loss, unspecified ear; K59.00 Constipation, unspecified; K44.9 Diaphragmatic hernia without obstruction or gangrene; R10.9 Unspecified abdominal pain; H70.92 Unspecified mastoiditis, left ear; R00.1 Bradycardia, unspecified; Z66 Do not resuscitate; Z87.891 Personal history of nicotine dependence; Z79.82 Long term (current) use of aspirin; E87.5 Hyperkalemia; Z79.899 Other long term (current) drug therapy; Z86.19 Personal history of other infectious and parasitic diseases; J34.2 Deviated nasal septum; Z78.1 Physical restraint status; K76.1 Chronic passive congestion of liver; D64.9 Anemia, unspecified
CPT/HCPCS: A4725; C9113; G0378; J0171; J0610; J0690; J0744; J1160; J1250; J1644; J1720; J1956; J2001; J2060; J2250; J2270; J2370; J2405; J2440; J2543; J2720; J2997; J3010; J3370; J3480; J7030; J7040; J7050; J7060; J7120; P9017; P9045; P9047; Q9967